=== PATIENT | male | born 1955 | race Two or more races ===

== ENCOUNTER 2024-04-17 10:45 | Inpatient (IN) | payer MEDICARE, MEDICAID ==
[~2024-04-17] VITALS: Ht 160 cm; Wt 103.9 kg
--- NOTE | 2024-04-17 11:05 | ED.PDOC ---
History of Present Illness HPI Comments 68-year-old male with PMHx DM, HTN presents with a chief complaint of wound infection s/p amputation surgery x 3 months ago. Patient has an open wound to the left 5th digit on his foot that is open and draining fluid. Patient had his 2nd digit on his left foot amputated x 3 months ago at [facility]. Patient was sent home with oral antibiotics for 10 days which he finished. Patient denies any pain to the foot. No other symptoms or modifying factors present at this time. Time Seen by MD: 10:54 Reviewed Notes: Nurses Notes, Medications, Allergies Information Source: Relative (Child) Mode of Arrival: Ambulatory Severity: Moderate Timing: Days Duration: Since onset Prehospital treatment: None Associated signs and symptoms No associated nausea or vomiting Past Medical History PAST MEDICAL HISTORY: DM, HTN Surgical History (Other): AMPUTATION OF 2ND DIGIT ON LEFT FOOT Family History Family History: Reviewed,noncontributory to illness Social History Smoker: Non-Smoker Alcohol: Denies ETOH Use Drugs: Denies Drug Use Lives In: Home Constitutional: denies: chills, diaphoresis, fatigue, fever, malaise, sweats, weakness, others EENTM: denies: blurred vision, double vision, ear bleeding, ear discharge, ear drainage, ear pain, ear ringing, eye pain, eye redness, hearing loss, mouth pain, mouth swelling, nasal discharge, nose bleeding, nose congestion, nose pain, photophobia, tearing, throat pain, throat swelling, voice changes, others Respiratory: denies: cough, hemoptysis, orthopnea, SOB at rest, shortness of breath, SOB with excertion, stridor, wheezing, others Cardiovascular: denies: chest pain, dizzy spells, diaphoresis, Dyspnea on exertion, edema, irregular heart beat, left arm pain, lightheadedness, palpita tions, PND, syncope, others Gastrointestinal: denies: abdomen distended, abdominal pain, blood streaked fan wels, constipated, diarrhea, dysphagia, difficulty swallowing, hematemesis, melena, nausea, poor appetite, poor fluid intake, rectal bleeding, rectal pain, vomiting, others Genitourinary: denies: burning, dysuria, flank pain, frequency, hematuria, incontinence, penile discharge, penile sore, pain, testicle pain, testicle swelling, urgency, others Neurological: denies: dizziness, fainting, headache, left sided numbness, left sided weakness, numbness, paresthesia, pre-existing deficit, right sided numbness, right sided weakness, seizure, speech problems, tingling, tremors, weakness, others Musculoskeletal: denies: back pain, gout, joint pain, joint swelling, muscle pain, muscle stiffness, neck pain, others Integumetry: reports: wounds (LEFT 5th DIGIT ON FOOT); denies: bruises, change in color, change in hair/nails, dryness, laceration, lesions, lumps, rash, others Allergic/Immunocompromised: denies: Difficulty Healing, Frequent Infections, Hives, Itching, others Hematologic/Lymphatic: denies: anemia, blood clots, easy bleeding, easy bruising, swollen glands, others Endocrine: denies: excessive hunger, excessive sweating, excessive thirst, excessive urination, flushing, intolerance to cold, intolerance to heat, unexp lained weight gain, unexplained weight loss, others Psychiatric: denies: anxiety, bipolar disorder, depression, hopeless, panic disorder, schizophrenia, sleepless, suicidal, others All Other Systems: Reviewed and Negative Physical Exam General Appearance: No Apparent Distress HEENT: Normal ENT Inspection, Pharynx Normal, TMs Normal Neck: Full Range of Motion, Non-Tender, Normal, Normal Inspection Respiratory: Chest Non-Tender, Lungs Clear, No Accessory Muscle Use, No Respiratory Distress, Normal Breath Sounds Cardiovascular: No Edema, No JVD, No Murmur, No Gallop, Normal Peripheral Pulses, Regular Rate/Rhythm Breast Exam: Deferred Gastrointestinal: No Organomegaly, Non Tender, No Pulsatile Mass, Normal Bowel Sounds, Soft Genitalia: Deferred Pelvic: Deferred Rectal: Deferred Extremities: No calf tenderness, Normal capillary refill, No pedal edema, Other (Left foot with previous amputation of the 2nd digit but also significant redness and what seems to be exposed destructive bone to the left 5th digit as well as purulent drainage) Musculoskeletal : Apperance: Normal Neurologic: Alert, appeals manager II-XII nml as Tested, No Motor Deficits, Normal Affect, Normal Mood, No Sensory Deficits Cerebellar Function: Normal Reflexes: Normal Skin: Dry, Normal Color, Warm Lymphatic: No Adenopathy Was a procedure done? Was a procedure done?: No Differential Dx Considerations may include: Osteomyelitis, cellulitis X-Ray, Labs, Meds, VS Vital Signs Date Time Temp Pulse Resp B/P (MAP) Pulse Ox O2 Delivery O2 Flow Rate FiO2 04/17/24 11:30 98.6 73 17 151/76 (101) 98 98.6 04/17/24 11:30 73 17 04/17/24 11:18 98.9 82 18 157/76 (103) 100 Lab Test 04/17/24 11:54 04/17/24 11:41 04/17/24 11:38 04/17/24 11:32 Range/Units POC Glucose 323 H 297 H 304 H 70-106 mg/dl Urine Color Light-yellow Yellow Urine Clarity Clear Clear Urine pH 5.5 5.0-9.0 Urine Specific [place] 1.018 1.001-1.035 Urine Protein 2+ H Negative Urine Ketones Negative Negative Urine Blood Trace H Negative /uL Urine Nitrite Negative Negative Urine Bilirubin Negative Negative Urine Urobilinogen Normal Negative mg/dL Urine Leukocyte Esterase Negative Negative /uL Urine RBC <1 0 - 3 /hpf Urine WBC 1 0 - 3 /hpf Urine Squamous Epithelial Cells None seen <5 /hpf Urine Bacteria None seen None Seen /hpf Urine Glucose 4+ H Normal mg/dL Test 04/17/24 11:14 Range/Units White Blood Count 9.5 4.4-10.8 10^3/uL Red Blood Count 5.95 H 4.5-5.90 10^6/uL Hemoglobin 17.4 13.5-17.5 g/dL Hematocrit 51.1 41.0-53.0 % Mean Corpuscular Volume 85.8 80.0-100.0 fL Mean Corpuscular Hemoglobin 29.3 28.0-32.0 pg Mean Corpuscular Hemoglobin Concent 34.1 32.0-36.0 g/dL Red Cell Distribution Width 13.5 11.8-14.3 % Platelet Count 236 140-450 10^3/uL Mean Platelet Volume 8.1 6.9-10.8 fL Neutrophils (%) (Auto) 64.5 37.0-80.0 % Lymphocytes (%) (Auto) 24.2 10.0-50.0 % Monocytes (%) (Auto) 6.4 0.0-12.0 % Eosinophils (%) (Auto) 4.2 0.0-7.0 % Basophils (%) (Auto) 0.7 0.0-2.0 % Neutrophils # (Auto) 6.1 1.6-8.6 10 ^3/uL Lymphocytes # (Auto) 2.3 0.4-5.4 10 ^3/uL Monocytes # (Auto) 0.6 0-1.3 10 ^3/uL Eosinophils # (Auto) 0.4 0-0.8 10 ^3/uL Basophils # (Auto) 0.1 0-0.2 10 ^3/uL Nucleated Red Blood Cells 0.1 % Erythrocyte Sedimentation Rate 12 0-20 mm/hr Sodium Level 138 136-145 mmol/L Potassium Level 4.4 3.5-5.1 mmol/L Chloride Level 102 98-107 mmol/L Carbon Dioxide Level 26 20-31 mmol/L Anion Gap 10 5-15 Blood Urea Nitrogen 24 H 9-23 mg/dL Creatinine 1.07 0.700-1.30 mg/dL Glomerular Filtration Rate Calc 75 >90 mL/min BUN/Creatinine Ratio 22.4 H 10.0-20.0 Serum Glucose 288 H 74-106 mg/dL Lactic Acid Level 1.8 0.4-2.0 mmol/L Calcium Level 10.4 8.7-10.4 mg/dL Current Medications Medications (Trade) Dose Ordered Sig/Debi Route Start Time Stop Time Status Last Admin Sodium Chloride 500 ml @ 500 mls/hr Q1H ONCE IV 04/17/24 11:00 04/17/24 11:59 DC 04/17/24 11:38 Vancomycin HCl 200 ml @ 200 mls/hr ONCE ONCE IV 04/17/24 11:00 04/17/24 11:59 DC 04/17/24 12:[address] Scan Impression: 1. 5th proximal and middle phalanx osteomyelitis. Soft tissue swelling compatible with cellulitis. The patient had an IV Hep-Lock established The patient was given a bolus of normal saline at 500 cc The patient's CBC and chemistry panel is within normal limits The lactic acid level is within normal limits The urine test is negative for any infection The patient was started on vancomycin for the infection A podiatry consult will be obtained. Images Reviewed?: Images reviewed and evaluated by me Time of 1ST Reevaluation: 11:24 Reevaluation 1ST: Unchanged Patient Education/Counseling: Diagnosis, Treatment, Prognosis Family Education/Counseling: Diagnosis, Treatment, Prognosis Departure 1 Departure Time of Disposition: 12:47 Impression: Primary Impression: Foot osteomyelitis, left Qualified Codes: M86.9 - Osteomyelitis, unspecified Disposition: ADMITTED INPATIENT Admit to: Med Surg Condition: Fair Critical Care Note Critical Care Time?: No Stability Stability form required: Yes Unstable for transfer: ED Physician Assesment (Clinical assesment) Heart Score Heart Score: Heart Score Response (Comments) Value History N/A 0 EKG N/A 0 Age N/A 0 Risk Factors N/A 0 Troponin N/A 0 Total 0 I personally scribed for KAYDEN LLAMAS MD ([email or web address]) on 04/17/24 at 11:05. El ectronically submitted by Pedro Astudillo ([email or web address]). I personally scribed for KAYDEN LLAMAS MD ([email or web address]) on 04/17/24 at 12:20. Electronically submitted by Pedro Astudillo ([email or web address]). KAYDEN LLAMAS MD Apr 17, 2024 11:05
[2024-04-17 11:34] LABS: Chloride 102 mmol/L (98-107); Potassium 4.4 mmol/L (3.5-5.1); Sodium 138 mmol/L (136-145)
[2024-04-17 11:35] LABS: Anion Gap 10 (5-15); Carbon Dioxide 26 mmol/L (20-31)
[2024-04-17 11:36] LABS: Basophils # (auto) 0.1 10 ^3/uL (0-0.2); Basophils % (auto) 0.7 % (0.0-2.0); Eosinophils # (auto) 0.4 10 ^3/uL (0-0.8); Eosinophils % (auto) 4.2 % (0.0-7.0); Hematocrit 51.1 % (41.0-53.0); Hemoglobin 17.4 g/dL (13.5-17.5); Lymphocytes # (auto) 2.3 10 ^3/uL (0.4-5.4); Lymphocytes % (auto) 24.2 % (10.0-50.0); Mean Corpuscular Hemoglobin 29.3 pg (28.0-32.0); Mean Corpuscular Hgb Conc. 34.1 g/dL (32.0-36.0); Mean Corpuscular Volume 85.8 fL (80.0-100.0); Monocytes # (auto) 0.6 10 ^3/uL (0-1.3); Monocytes % (auto) 6.4 % (0.0-12.0); Neutrophils # (auto) 6.1 10 ^3/uL (1.6-8.6); Neutrophils % (auto) 64.5 % (37.0-80.0); Nucleated Red Blood Cells % 0.1 %; Platelet Count (auto) 236 10^3/uL (140-450); Red Blood Cells 5.95 10^6/uL (4.5-5.90); Red Cell Distribution Width 13.5 % (11.8-14.3); White Blood Cell 9.5 10^3/uL (4.4-10.8)
[2024-04-17] MEDS: SODIUM CHLORIDE 0.9% 500 ML IV ONE (11:38)
[2024-04-17 11:40] LABS: BUN/Creatinine Ratio 22.4 (10.0-20.0)
[2024-04-17 11:41] LABS: Blood Urea Nitrogen 24 mg/dL (9-23); Calcium 10.4 mg/dL (8.7-10.4); Glucose 288 mg/dL (74-106)
[2024-04-17 11:50] LABS: Urine Bacteria None Seen /hpf (None Seen)
[2024-04-17 12:03] LABS: Urine Blood TRACE /uL (Negative); Urine Clarity Clear (Clear); Urine Color Light-Yellow (Yellow); Urine Protein, UAD 2+ (Negative); Urine Specific Gravity 1.018 (1.001-1.035); Urine Urobilinogen Normal (Negative); Urine WBC 1 /hpf (0 - 3); Urine pH 5.5 (5.0-9.0)
[2024-04-17] MEDS: VANCOMYCIN 1GM/250ML KIT 200 ML IV ONE (12:05)
--- NOTE | 2024-04-17 12:17 | DVH ---
CLINICAL INDICATION: 68 years old, Male; infection. TECHNIQUE: Noncontrast CT of the left foot was performed. Sagittal and coronal reformatted images are provided. COMPARISON: None CT Dose: CTDI volume is 7.75 mGy. Dose-length product is 209.0 mGy*cm FINDINGS: There is cortical destruction in the 5th proximal and middle phalanx. Status post amputation of the 2 nd toe phalanges. Joint spaces are otherwise maintained. Diffuse soft tissue swelling. Vascular calc ifications noted. IMPRESSION: 1. 5th proximal and middle phalanx osteomyelitis. Soft tissue swelling compatible with cellulitis. All CT scans at this medical facility are performed using dose modulation techniques as appropriate t o a performed exam including the following: Automated exposure control was utilized; adjustment of th e MA and/or KV according to patient size; and use of iterative reconstruction technique.
[2024-04-17 12:24] LABS: Erythrocyte Sedimentation Rate 12 mm/hr (0-20)
[2024-04-17] MEDS ORDERED: VANCOMYCIN PER PHARMACY 0 MG IV SCH (13:30)
[2024-04-17] MEDS ORDERED: ONDANSETRON HCL 4 MG/2 ML VIAL IV PRN (13:30)
[2024-04-17] MEDS ORDERED: DOCUSATE SOD 100 MG CAP PO PRN (13:30)
[2024-04-17] MEDS ORDERED: MORPHINE SULFATE INJ 2 MG/ml SYRG IV PRN (13:30)
[2024-04-17] MEDS ORDERED: ACETAMINOPHEN 325 MG TAB PO PRN (13:30)
[2024-04-17] MEDS ORDERED: DEXTROSE (50%) 50ML SYRG IV PRN (13:30)
[2024-04-17] MEDS: SODIUM CHLORIDE 0.9% 1,000 ML IV SCH (14:18)
[2024-04-17] MEDS: PIPERACILLIN-TAZOB 3.375GM 100 ML IV SCH (14:26)
--- NOTE | 2024-04-17 15:19 | DVHHP2 ---
History of Present Illness Reason for Visit: infected left foot History of Present Illness Jaiden Pope is a 68YO M with pmHx of DM, HTN, HLD, land eft 2nd toe amputation who presents to the ED for infected left toe. Upon examination patient reports he was hospitalized recently for the amputation and completed his course of antibiotics. He states he is here now because he thinks his left foot is infected and due to the foul odor. Patient reports he is compliant with his medications. Patient states he uses a cane for mobility. Patient denies fever, chills, pain, N/V/D, shortness of breath, chest pain, and abdominal pain. Cardiovascular: HTN, hyperipidemia Endocrine: Diabetes Past Surgical History Left toe amputation Family History: None Smoke: No ALCOHOL: none Lives: with Family Domestic Violence: Neg Review of Systems Constitutional: No: Fever, Chills, Sweats, Weakness, Malaise, Other Eyes: No: Pain, Vision change, Conjunctivae inflammation, Eyelid inflammation, Other, Redness ENT: No: Ear pain, Ear discharge, Nose pain, Nose discharge, Nose congestion, Mouth pain, Mouth swelling, Throat pain, Throat swelling, Other Respiratory: No: Cough, Dry, Shortness of breath, SOB with excertion, Wheezing, Hemoptysis, Pleuritic Pain, Sputum, Wheezing, Other Cardiovascular: No: Chest Pain, Palpitations, Orthopnea, Paroxysmal Noc. Dyspnea, Edema, Lt Headedness, Other Gastrointestinal: No: Nausea, Vomiting, Abdominal Pain, Diarrhea, Constipation, Melena, Hematochezia, Other Genitourinary: No Dysuria, No Frequency, No Incontinence, No Hematuria, No Retention, No Other Musculoskeletal: No: other, neck pain, shoulder pain, arm pain, back pain, hand pain, leg pain, foot pain Skin: Other (erythematic edematous) Neurological: No: Weakness, Numbness, Incoordination, Change in speech, Confusion, Seizures, Other Allergies: Coded Allergies: No Known Drug Allergy (Verified Allergy, Unknown, 04/17/24) Medications Current Medications Medications Dose Ordered Sig/Debi Route Start Time Stop Time Status Last Admin Dose Admin Vancomycin HCl 0 ml @ 0 mls/hr UD IV 04/17/24 13:30 Piperacillin Sod/ Tazobactam Sod 100 ml @ 25 mls/hr Q8HR IV 04/17/24 14:00 04/17/24 14:26 25 MLS/HR Diagnostic Test (Pha) 1 strip IQ4HR 04/17/24 16:00 Insulin Human Regular IQ4HR SC 04/17/24 16:00 Dextrose 50 ml UD PRN IV 04/17/24 13:30 Sodium Chloride 1,000 ml @ 60 mls/hr [id number] IV 04/17/24 13:30 04/17/24 14:18 60 MLS/HR Acetaminophen/ Hydrocodone Bitart 1 tab Q4HP PRN PO 04/17/24 13:30 Ondansetron HCl 4 mg Q4HP PRN IV 04/17/24 13:30 Docusate Sodium 100 mg BIDPRN PRN PO 04/17/24 13:30 Zinc Sulfate 220 mg DAILY PO 04/18/24 10:00 Ascorbic Acid 500 mg BID PO 04/17/24 22:00 Multivitamins 1 tab DAILY PO 04/18/24 10:00 Acetaminophen 650 mg Q6HP PRN PO 04/17/24 13:30 Morphine Sulfate 2 mg Q4HPRN PRN IV 04/17/24 13:30 Vancomycin HCl 150 ml @ 150 mls/hr Q12H IV 04/18/24 00:00 Exam Vital Signs Vital Signs Date Time Temp Pulse Resp B/P (MAP) Pulse Ox O2 Delivery O2 Flow Rate FiO2 04/17/24 14:06 69 16 125/74 (91) 94 04/17/24 11:30 98.6 98.6 General Appearance: Alert, Oriented X3, Cooperative, No acute distress HEENT: Atraumatic, PERRLA, EOMI, Mucous membr. moist/pink Respiratory: Clear to auscultation, Normal air movement Cardiovascular: Regular rate, Normal S1, Normal S2, No murmurs Abdominal: Normal bowel sounds, Soft, No tenderness, No hepatospenomegaly, No masses Extremities: No cyanosis Neuro: Normal gait, Normal speech, Strength at 5/5 X4 ext, Normal tone Psych/Mental Status: Mental status NL, Mood NL Labs/Xrays Labs Test 04/17/24 11:54 04/17/24 11:32 04/17/24 11:14 Range/Units POC Glucose 323 H 70-106 mg/dl Urine Color Light-yellow Yellow Urine Clarity Clear Clear Urine pH 5.5 5.0-9.0 Urine Specific [place] 1.018 1.001-1.035 Urine Protein 2+ H Negative Urine Ketones Negative Negative Urine Blood Trace H Negative /uL Urine Nitrite Negative Negative Urine Bilirubin Negative Negative Urine Urobilinogen Normal Negative mg/dL Urine Leukocyte Esterase Negative Negative /uL Urine RBC <1 0 - 3 /hpf Urine WBC 1 0 - 3 /hpf Urine Squamous Epithelial Cells None seen <5 /hpf Urine Bacteria None seen None Seen /hpf Urine Glucose 4+ H Normal mg/dL White Blood Count 9.5 4.4-10.8 10^3/uL Red Blood Count 5.95 H 4.5-5.90 10^6/uL Hemoglobin 17.4 13.5-17.5 g/dL Hematocrit 51.1 41.0-53.0 % Mean Corpuscular Volume 85.8 80.0-100.0 fL Mean Corpuscular Hemoglobin 29.3 28.0-32.0 pg Mean Corpuscular Hemoglobin Concent 34.1 32.0-36.0 g/dL Red Cell Distribution Width 13.5 11.8-14.3 % Platelet Count 236 140-450 10^3/uL Mean Platelet Volume 8.1 6.9-10.8 fL Neutrophils (%) (Auto) 64.5 37.0-80.0 % Lymphocytes (%) (Auto) 24.2 10.0-50.0 % Monocytes (%) (Auto) 6.4 0.0-12.0 % Eosinophils (%) (Auto) 4.2 0.0-7.0 % Basophils (%) (Auto) 0.7 0.0-2.0 % Neutrophils # (Auto) 6.1 1.6-8.6 10 ^3/uL Lymphocytes # (Auto) 2.3 0.4-5.4 10 ^3/uL Monocytes # (Auto) 0.6 0-1.3 10 ^3/uL Eosinophils # (Auto) 0.4 0-0.8 10 ^3/uL Basophils # (Auto) 0.1 0-0.2 10 ^3/uL Nucleated Red Blood Cells 0.1 % Erythrocyte Sedimentation Rate 12 0-20 mm/hr Sodium Level 138 136-145 mmol/L Potassium Level 4.4 3.5-5.1 mmol/L Chloride Level 102 98-107 mmol/L Carbon Dioxide Level 26 20-31 mmol/L Anion Gap 10 5-15 Blood Urea Nitrogen 24 H 9-23 mg/dL Creatinine 1.07 0.700-1.30 mg/dL Glomerular Filtration Rate Calc 75 >90 mL/min BUN/Creatinine Ratio 22.4 H 10.0-20.0 Serum Glucose 288 H 74-106 mg/dL Hemoglobin A1c 8.5 H <5.7 % A1C Lactic Acid Level 1.8 0.4-2.0 mmol/L Calcium Level 10.4 8.7-10.4 mg/dL CLINICAL INDICATION: rule out osteomyelitis left 5th toe FINDINGS/IMPRESSION: Ablation of the left 2nd toe.. Osteoporotic and severe bone loss to the proximal phalanx of the left 5th toe and distal phalanx of the left 5th toe consistent with osteomyelitis. Other toes may be involved suggest MRI for further evaluation. The visualized joint space is well maintained. The alignment is anatomical. There is no radiopaque foreign body. BILATERAL Lower Extremity Arterial Duplex Clinical History: rule out vascular compromise. Gangrene left toe Finding: RIGHT: Peak systolic velocities are as follows: SAFETY ENGINEER PRESSURE VESSELS 116 cm/s biphasic waveform Deep femoral 71 cm/s biphasic waveform SFA proximal 71 cm/s biphasic waveform SFA mid-portion 130 cm/s biphasic waveform SFA distal 99 cm/s biphasic waveform Popliteal 38 cm/s biphasic waveform Posterior tibial 55 cm/s monophasic waveform Dorsalis pedis 53 cm/s monophasic waveform The waveforms are monophasic waveform in the posterior tibial and dorsalis pedis arteries. Biphasic waveform throughout the remainder of the arteries. LEFT: Peak systolic velocities are as follows: SAFETY ENGINEER PRESSURE VESSELS 128 cm/s biphasic waveform Deep femoral 77 cm/s biphasic waveform SFA proximal 131 cm/s biphasic waveform SFA mid-portion 91 cm/s biphasic waveform SFA distal 128 cm/s biphasic waveform Popliteal 118 cm/s triphasic waveform Posterior tibial 151 cm/s monophasic waveform Dorsalis pedis 8 cm/s monophasic waveform The waveforms are biphasic and triphasic waveform throughout the left lower extremity except in the left posterior tibial artery and dorsalis pedis in which they are monophasic. REFERENCE VALUES, [facility] ([facility]) vascular Imaging Lab Criteria: Peak systolic velocity ranges (in cm/sec) are as follows: <150 cm/s - <20 % stenosis 150-200 cm/s - 20-49% stenosis 200-300 cm/s - 50-75% stenosis >300 cm/s -> 75% stenosis IMPRESSION: 1. Biphasic waveform throughout the right lower extremity except in the posterior tibial and dorsalis pedis in which they are monophasic. 2. biphasic 3. on triphasic waveform throughout the left lower 4. extremity. 5. Monophasic 6. waveform in the left posterior tibial 7. artery and dorsalis pedis. 8. Low flow 9. in the left dorsalis 10. pedis all 8 centimeters/second. PROCEDURE(s): LFTCT - CT L FOOT WO CONTRAST REASON: infection CLINICAL INDICATION: 68 years old, Male; infection. FINDINGS: There is cortical destruction in the 5th proximal and middle phalanx. Status post amputation of the 2nd toe phalanges. Joint spaces are otherwise maintained. Diffuse soft tissue swelling. Vascular calcifications noted. IMPRESSION: 1. 5th proximal and middle phalanx osteomyelitis. Soft tissue swelling compatible with cellulitis. Assessment/Plan Assessment/Plan Assessment: Osteomyelitis of left foot Hx of left 2nd toe amputation DM Plan: Admit to med surg Podiatry consult IVf IV Abx Diet as tolerated ISS and accuchecks Pain management Monitor labs AM labs Home medications reconciled Discussed plan of care with patient and nurse Plan discussed with: Patient My Orders Orders - ASHA HANSON AIRPORT ATTENDANT Procedure Category Date Status Time *Podiatry Consult CONS 04/17/24 Transmitted Briceon(Dvmg) 12:46 Vancomycin Per PHA 04/17/24 In Process Pharmacy 13:30 Piperacillin-Tazob PHA 04/17/24 In Process 3.375gm (Zosyn 3.375g 14:00 Glucose Blood PHA 04/17/24 In Process (Accu-Chek Comfort 16:00 Insulin R (Human) PHA 04/17/24 In Process (Insulin R) 16:00 Dextrose 50% Syringe PHA 04/17/24 In Process 13:30 Admit ADMIT 04/17/24 Transmitted 13:18 Code Status CODE 04/17/24 Transmitted 13:18 Sodium Chloride 0.9% PHA 04/17/24 In Process 13:30 Hydrocodone-Acet PHA 04/17/24 In Process 5/325mg Tab ([place] 13:30 Ondansetron Hcl PHA 04/17/24 In Process (Zofran) 13:30 Docusate Sodium PHA 04/17/24 In Process Capsule (Colace 13:30 Zinc Sulfate PHA 04/18/24 In Process 10:00 Ascorbic Acid Tablet PHA 04/17/24 In Process (Vitamin C Tablet) 22:00 Multiple Vitamin PHA 04/18/24 In Process Tablet (Mvi Tab) 10:00 Complete Blood Count LAB 04/18/24 Verified 04:00 Comprehensive LAB 04/18/24 Verified Metabolic Panel 04:00 Cardiac DIET 04/17/24 Transmitted Diet-2gna,Lofat,Lochol Lunch Acetaminophen Tablet PHA 04/17/24 In Process (Tylenol Tablet) 13:30 Morphine Sulfate PHA 04/17/24 In Process Injection 13:30 Vancomycin,Trough LAB 04/18/24 Verified 23:00 Vancomycin Per MEJIA 04/18/24 In Process Pharmacy Protoc 23:00 Vancomycin PHA 04/18/24 In Process 750mg/150ml 00:00 Problem List: (1) Foot osteomyelitis, left (2) HTN (hypertension) (3) HLD (hyperlipidemia) (4) Diabetes Date of Service: Apr 17, 2024 Billing Provider: ASHA HANSON Common Visit Codes: [id number] INP/OBS CARE (MOD) ASHA HANSON Apr 17, 2024 15:19
[2024-04-17] MEDS: ACCU-CHEK COMFORT CURVE STRIP VI SCH (16:09)
[2024-04-17] MEDS: InsuLIN REG 1unit/0.01ml Soln (100units/ml) SC SCH (16:17)
--- NOTE | 2024-04-17 17:54 | DVH ---
CLINICAL INDICATION: rule out osteomyelitis left 5th toe TECHNIQUE: 3 radiographic views of the left foot were obtained. Comparison: None FINDINGS/IMPRESSION: Ablation of the left 2nd toe.. Osteoporotic and severe bone loss to the proximal phalanx of the left 5th toe and distal phalanx of t he left 5th toe consistent with osteomyelitis. Other toes may be involved suggest MRI for further evaluation. The visualized joint space is well maintained. The alignment is anatomical. There is no radiopaque foreign body.
--- NOTE | 2024-04-17 18:31 | DVH ---
BILATERAL Lower Extremity Arterial Duplex Date: 04/17/2024 05:32 PM Clinical History: rule out vascular compromise. Gangrene left toe Comparison: None Technique: Duplex Doppler evaluation including color Doppler and spectral/pulsed waveform analysis of the lower extremity arteries was performed. Finding: RIGHT: Peak systolic velocities are as follows: ALARM SIGNAL OPERATOR 116 cm/s biphasic waveform Deep femoral 71 cm/s biphasic waveform SFA proximal 71 cm/s biphasic waveform SFA mid-portion 130 cm/s biphasic waveform SFA distal 99 cm/s biphasic waveform Popliteal 38 cm/s biphasic waveform Posterior tibial 55 cm/s monophasic waveform Dorsalis pedis 53 cm/s monophasic waveform The waveforms are monophasic waveform in the posterior tibial and dorsalis pedis arteries. Biphasic w aveform throughout the remainder of the arteries. LEFT: Peak systolic velocities are as follows: ALARM SIGNAL OPERATOR 128 cm/s biphasic waveform Deep femoral 77 cm/s biphasic waveform SFA proximal 131 cm/s biphasic waveform SFA mid-portion 91 cm/s biphasic waveform SFA distal 128 cm/s biphasic waveform Popliteal 118 cm/s triphasic waveform Posterior tibial 151 cm/s monophasic waveform Dorsalis pedis 8 cm/s monophasic waveform The waveforms are biphasic and triphasic waveform throughout the left lower extremity except in the l eft posterior tibial artery and dorsalis pedis in which they are monophasic. REFERENCE VALUES, [facility] ([facility]) vascular Imaging Lab Criteria: Peak systolic velocity ranges (in cm/sec) are as follows: <150 cm/s - <20 % stenosis 150-200 cm/s - 20-49% stenosis 200-300 cm/s - 50-75% stenosis >300 cm/s -> 75% stenosis IMPRESSION: 1. Biphasic waveform throughout the right lower extremity except in the posterior tibial and dorsalis pedis in which they are monophasic. 2. biphasic 3. on triphasic waveform throughout the left lower 4. extremity. 5. Monophasic 6. waveform in the left posterior tibial 7. artery and dorsalis pedis. 8. Low flow 9. in the left dorsalis 10. pedis all 8 centimeters/second.
[2024-04-17] MEDS: ASCORBIC ACID 500 MG TAB PO SCH (21:55)
[2024-04-18] VITALS (8 sets, daily range): BP systolic 118–160; BP diastolic 46–91; PULSE 60–63; RESP 17–20; TEMP 97.7–98.9; O2SAT 89–96
[2024-04-18] MEDS: VANCOMYCIN 750mg/150ml 150 ML IV SCH (01:13)
[2024-04-18 06:10] LABS: Basophils # (auto) 0 10 ^3/uL (0-0.2); Basophils % (auto) 0.6 % (0.0-2.0); Eosinophils # (auto) 0.5 10 ^3/uL (0-0.8); Eosinophils % (auto) 6.1 % (0.0-7.0); Hematocrit 42.1 % (41.0-53.0); Hemoglobin 14.3 g/dL (13.5-17.5); Lymphocytes # (auto) 2.1 10 ^3/uL (0.4-5.4); Lymphocytes % (auto) 23.3 % (10.0-50.0); Mean Corpuscular Hemoglobin 29.2 pg (28.0-32.0); Mean Corpuscular Hgb Conc. 33.9 g/dL (32.0-36.0); Mean Corpuscular Volume 86.2 fL (80.0-100.0); Monocytes # (auto) 0.7 10 ^3/uL (0-1.3); Monocytes % (auto) 7.9 % (0.0-12.0); Neutrophils # (auto) 5.5 10 ^3/uL (1.6-8.6); Neutrophils % (auto) 62.1 % (37.0-80.0); Platelet Count (auto) 218 10^3/uL (140-450); Red Blood Cells 4.88 10^6/uL (4.5-5.90); Red Cell Distribution Width 13.2 % (11.8-14.3); White Blood Cell 8.8 10^3/uL (4.4-10.8)
[2024-04-18 06:26] LABS: Alanine Aminotransferase 16 U/L (7-40); Alkaline Phosphatase 96 U/L (46-116); Anion Gap 9 (5-15); Blood Urea Nitrogen 20 mg/dL (9-23); Calcium 9.2 mg/dL (8.7-10.4); Carbon Dioxide 26 mmol/L (20-31); Potassium 3.8 mmol/L (3.5-5.1); Sodium 142 mmol/L (136-145)
[2024-04-18 06:27] LABS: Albumin 3.7 g/dL (3.2-4.8); Bilirubin, Total 0.5 mg/dL (0.2-1.0); Total Protein 6.3 g/dL (5.7-8.2)
[2024-04-18 06:50] LABS: Aspartate Aminotransferase 11 U/L (13-40); Chloride 107 mmol/L (98-107); Glucose 136 mg/dL (74-106)
--- NOTE | 2024-04-18 07:49 | DVHINCON2 ---
Date of service: Apr 18, [address] Miller MD Reason for Consultation Osteomyelitis 5th left toe. History of Present Illness This is a 68-year-old M with past medical Hx of DM, HTN, HLD, and left 2nd toe amputation. The patient was seen at bed side resting comfortably. Upon e xamination patient reports he was hospitalized recently for the amputation of the 2nd left toe approximately 3 weeks ago at [facility]. The patient completed his course of antibiotics. He states he is here now because he thinks his left foot is infected and due to the foul odor. Patient Patient denies fever, chills, pain, N/V/D, shortness of breath, chest pain, and abdominal pain. I was consulted to render an opinion from surgical view point. Past Medical History DMII HTN Hyperlipidemia. Past Surgical History Amputation of the 2nd left toe. Family History: Patient reports no known family medical history. Family History Reviewed and is non-contributory to management of this case. Social History denies tobacco use denies alcohol use denies illicit drug use lives at home with family. Allergies: Coded Allergies: No Known Drug Allergy (Verified Allergy, Unknown, 04/17/24) Home Meds Unable to Obtain Active Prescriptions or Reported Meds Current Medications Current Medications Medications (Trade) Dose Ordered Sig/Debi Route PRN Reason Start Time Stop Time Status Last Admin Vancomycin HCl 0 ml @ 0 mls/hr UD IV 04/17/24 13:30 Piperacillin Sod/ Tazobactam Sod 100 ml @ 25 mls/hr Q8HR IV 04/17/24 14:00 04/18/24 05:30 Diagnostic Test (Pha) (Accu-Chek Comfort Curve T) 1 strip IQ4HR 04/17/24 16:00 04/18/24 04:38 Insulin Human Regular (InsuLIN R) IQ4HR SC 04/17/24 16:00 04/18/24 04:38 Dextrose 50 ml UD PRN IV Blood Sugar LESS THAN 60 04/17/24 13:30 Sodium Chloride 1,000 ml @ 60 mls/hr [id number] IV 04/17/24 13:30 04/17/24 21:55 Acetaminophen/ Hydrocodone Bitart ([place] 5/325MG Tab) 1 tab Q4HP PRN PO MODERATE PAIN (4-6 PAIN SCALE) 04/17/24 13:30 Ondansetron HCl (Zofran) 4 mg Q4HP PRN IV NAUSEA / VOMITING 04/17/24 13:30 Docusate Sodium (Colace Capsule) 100 mg BIDPRN PRN PO FOR CONSTIPATION 04/17/24 13:30 Zinc Sulfate 220 mg DAILY PO 04/18/24 10:00 Ascorbic Acid (Vitamin C Tablet) 500 mg BID PO 04/17/24 22:00 04/17/24 21:55 Multivitamins (Mvi Tab) 1 tab DAILY PO 04/18/24 10:00 Acetaminophen (Tylenol Tablet) 650 mg Q6HP PRN PO PAIN SCALE 1-3 OR TEMP>100.4 04/17/24 13:30 Morphine Sulfate 2 mg Q4HPRN PRN IV SEVERE PAIN (7-10 PAIN SCALE) 04/17/24 13:30 Vancomycin HCl 150 ml @ 150 mls/hr Q12H IV 04/18/24 00:00 04/18/24 01:13 Review of Systems Constitutional: No: Fever, Chills, Sweats, Weakness, Malaise, Other Eyes: No: Pain, Vision change, Conjunctivae inflammation, Eyelid inflammation, Other, Redness ENT: No: Ear pain, Ear discharge, Nose pain, Nose discharge, Nose congestion, Mouth pain, Mouth swelling, Throat pain, Throat swelling, Other Respiratory: No: Cough, Dry, Shortness of breath, SOB with excertion, Wheezing, Hemoptysis, Pleuritic Pain, Sputum, Wheezing, Other Cardiovascular: No: Chest Pain, Palpitations, Orthopnea, Paroxysmal Noc. Dyspnea, Edema, Lt Headedness, Other Gastrointestinal: No: Nausea, Vomiting, Abdominal Pain, Diarrhea, Constipation, Melena, Hematochezia, Other Genitourinary: No Dysuria, No Frequency, No Incontinence, No Hematuria, No Retention, No Other Musculoskeletal: No: other, neck pain, shoulder pain, arm pain, back pain, hand pain, foot pain (5th left toe). Skin: Other (erythematic edematous) Neurological: No: Weakness, Numbness, Incoordination, Change in speech, Confusion, Seizures, Other Vital Signs Vital Signs Date Time Temp Pulse Resp B/P (MAP) Pulse Ox O2 Delivery O2 Flow Rate FiO2 04/18/24 05:00 98.2 62 17 129/91 (104) 91 98.2 11/28/24 00:50 Room Air* 0 21 Physical Exam General Appearance: Alert, Oriented X3, Cooperative, No acute distress HEENT: Atraumatic, PERRLA, EOMI, Mucous membr. moist/pink Respiratory: Clear to auscultation, Normal air movement Cardiovascular: Regular rate, Normal S1, Normal S2, No murmurs Abdominal: Normal bowel sounds, Soft, No tenderness, No hepatospenomegaly, No masses Extremities: No cyanosis, DP/PT +1/4 bilaterally, CFT 3 seconds bilaterally. Open wound with foul odor 5th left toe with significant necrosis noted. Exposed bone noted to the dorsal aspect of the 5th left toe. Evidence of intact sutures noted to the 2nd left toe due to previous amputation. Neuro: Normal gait, Normal speech, Strength at 5/5 X4 ext, Normal tone Psych/Mental Status: Mental status NL, Mood NL X-rays: Reviewed: osteomyelitis is noted to the proximal and distal phalanx 5th left toe. CT left foot: Reviewed: Positive for osteomyelitis 5th left toe. Arterial Dupplex scan: Reviewed: Positive for vascular compromise LLE. Monophasic wave to the posterior tibial artery LLE. Labs/Diagnostic Data Labs Test 04/18/24 05:15 04/18/24 04:34 04/17/24 11:32 04/17/24 11:14 Range/Units White Blood Count 8.8 4.4-10.8 10^3/uL Red Blood Count 4.88 4.5-5.90 10^6/uL Hemoglobin 14.3 # 13.5-17.5 g/dL Hematocrit 42.1 # 41.0-53.0 % Mean Corpuscular Volume 86.2 80.0-100.0 fL Mean Corpuscular Hemoglobin 29.2 28.0-32.0 pg Mean Corpuscular Hemoglobin Concent 33.9 32.0-36.0 g/dL Red Cell Distribution Width 13.2 11.8-14.3 % Platelet Count 218 140-450 10^3/uL Mean Platelet Volume 7.8 6.9-10.8 fL Neutrophils (%) (Auto) 62.1 37.0-80.0 % Lymphocytes (%) (Auto) 23.3 10.0-50.0 % Monocytes (%) (Auto) 7.9 0.0-12.0 % Eosinophils (%) (Auto) 6.1 0.0-7.0 % Basophils (%) (Auto) 0.6 0.0-2.0 % Neutrophils # (Auto) 5.5 1.6-8.6 10 ^3/uL Lymphocytes # (Auto) 2.1 0.4-5.4 10 ^3/uL Monocytes # (Auto) 0.7 0-1.3 10 ^3/uL Eosinophils # (Auto) 0.5 0-0.8 10 ^3/uL Basophils # (Auto) 0 0-0.2 10 ^3/uL Nucleated Red Blood Cells 0.0 % Sodium Level 142 136-145 mmol/L Potassium Level 3.8 3.5-5.1 mmol/L Chloride Level 107 98-107 mmol/L Carbon Dioxide Level 26 20-31 mmol/L Anion Gap 9 5-15 Blood Urea Nitrogen 20 9-23 mg/dL Creatinine 1.05 0.700-1.30 mg/dL Glomerular Filtration Rate Calc 76 >90 mL/min BUN/Creatinine Ratio 19.0 10.0-20.0 Serum Glucose 136 #H 74-106 mg/dL Calcium Level 9.2 8.7-10.4 mg/dL Total Bilirubin 0.5 0.2-1.0 mg/dL Aspartate Amino Transferase (AST) 11 L 13-40 U/L Alanine Aminotransferase (ALT) 16 7-40 U/L Alkaline Phosphatase 96 46-116 U/L Total Protein 6.3 5.7-8.2 g/dL Albumin 3.7 3.2-4.8 g/dL POC Glucose 165 H 70-106 mg/dl Urine Color Light-yellow Yellow Urine Clarity Clear Clear Urine pH 5.5 5.0-9.0 Urine Specific [place] 1.018 1.001-1.035 Urine Protein 2+ H Negative Urine Ketones Negative Negative Urine Blood Trace H Negative /uL Urine Nitrite Negative Negative Urine Bilirubin Negative Negative Urine Urobilinogen Normal Negative mg/dL Urine Leukocyte Esterase Negative Negative /uL Urine RBC <1 0 - 3 /hpf Urine WBC 1 0 - 3 /hpf Urine Squamous Epithelial Cells None seen <5 /hpf Urine Bacteria None seen None Seen /hpf Urine Glucose 4+ H Normal mg/dL Erythrocyte Sedimentation Rate 12 0-20 mm/hr Hemoglobin A1c 8.5 H <5.7 % A1C Lactic Acid Level 1.8 0.4-2.0 mmol/L Assessment Primary Diagnosis: Osteomyelitis 5th left toe. S/P amputation 2nd left toe with intact sutures. Secondary Diagnosis: DM II HTN Hyperlipidemia. Plan/Recommendation -continue with IV antibiotics as prescribed pending C&S results. -PICC line is pending for shelter IV therapy. -Recommend angiogram/plasty LLE. Cardiology consult is pending. -Discussed treatment options with the patient ranging from conservative treatment to surgical intervention. Pros and cons, risks, and benefits were fully discussed. Surgery was opted consisting of amputation of the 5th left toe at [facility]J with possible metatarsal head resection as deem necessary. We will await surgical intervention pending vascular optimization. -All questions and concerns were answered to the patient';s satisfaction. (Nurse was in room translating in [place]). Thank you for your consultation. Plan discussed with: Patient MORGANWEROCIPRIANO DPM Apr 18, 2024 07:49
[2024-04-18] MEDS: MULTIPLE VITAMIN TAB PO SCH (09:11)
[2024-04-18] MEDS: ZINC SULFATE 220mg CAP or TAB PO SCH (09:11)
[2024-04-18] MEDS: VALSARTAN 80 MG TAB PO SCH (10:00)
[2024-04-18 10:24] LABS: INR 1.02 (0.9-1.15); Partial Thromboplastin Time 25.1 SEC (24.5-34.5); Prothrombin Time 10.8 sec (9.3-11.8)
[2024-04-18] MEDS: amLODIPine BESYLATE 5 MG TAB PO SCH (11:10)
[2024-04-18] MEDS: ASPirin 81 mg TAB PO SCH (11:12)
[2024-04-18] MEDS: LIDOCAINE 1% (LOCAL ANESTH.) PF 5ml SDV ID ONE (14:10)
[2024-04-18] MEDS: INSULIN LISPRO (HUMAN) 100 UNITS/ML ML SC SCH (14:15)
--- NOTE | 2024-04-18 14:22 | DVHPNRES ---
Progress Note Date Seen: Apr 18, 2024 Resident Creating Document: VESTA COLON RESIDENT Medical Necessity Reason Pt with a Central, PICC or Fol: No Subjective Review of Systems Majo BERMUDEZ a 68-year-old [place]-speaking male with a PMH of type 2 DM, HTN, HLD, 2nd left toe amputation presented to the ED for the evaluation chronic left 5th toe wound. Patient reported, he developed left foot 2nd and 4th toe ulcers 4 months back, operated 2nd toe at that time and on antibiotic for 6-8 weeks but, did not operated on 5th toe. For past 1 month the wound is getting bigger, foul-smelling, mild pain which prompted him to visit ED. on my assessment patient denies fever, nausea, vomiting, chest pain, diaphoresis, shortness of breath, and other associated symptoms PMH: Type 2 DM, HTN, HLD, osteomyelitis of left foot PSH: 2nd left toe amputation 3 months back Family history: Reviewed, noncontributory Social history: Lives with family. Denies smoking, alcohol and other drug abuse Allergies: No known allergies Home medications: Amlodipine 10 mg, valsartan 320 mg, insulin 50 units, metformin Patient seen and examined at the bedside. Patient reported improvement in pain since admission. Left lower extremity food CT and x-ray showed 5th proximal and middle phalanx osteomyelitis and Soft tissue swelling compatible with cellulitis. Ordered wound cultures. Currently on vancomycin and Zosyn. Podiatric dietitian consultant evaluated the patient, advised amputation of the 5th left toe at MPJ with possible metatarsal head resection as deem necessary and recommend angiogram/plasty LLE. Cardiology consult is pending. Objective vital signs Vital Sign Date Time Temp Pulse Resp B/P (MAP) Pulse Ox O2 Delivery O2 Flow Rate FiO2 04/18/24 12:38 97.7 61 18 160/70 (100) 89 97.7 04/18/24 00:50 Room Air* 0 21 Total Intake and Output 04/17/24 04/17/24 04/18/24 15:00 23:00 07:00 Intake Total 420 ml 550 ml Output Total 350 ml Balance 420 ml 200 ml medications Current Medications Medications Dose Ordered Sig/Debi Route Start Time Stop Time Status Last Admin Dose Admin Vancomycin HCl 0 ml @ 0 mls/hr UD IV 04/17/24 13:30 Piperacillin Sod/ Tazobactam Sod 100 ml @ 25 mls/hr Q8HR IV 04/17/24 14:00 04/18/24 14:04 25 MLS/HR Diagnostic Test (Pha) 1 strip IQ4HR 04/17/24 16:00 04/18/24 12:00 1 STRIP Insulin Human Regular IQ4HR SC 04/17/24 16:00 04/18/24 12:00 3 UNITS Dextrose 50 ml UD PRN IV 04/17/24 13:30 Sodium Chloride 1,000 ml @ 60 mls/hr [id number] IV 04/17/24 13:30 04/17/24 21:55 60 MLS/HR Acetaminophen/ Hydrocodone Bitart 1 tab Q4HP PRN PO 04/17/24 13:30 Ondansetron HCl 4 mg Q4HP PRN IV 04/17/24 13:30 Docusate Sodium 100 mg BIDPRN PRN PO 04/17/24 13:30 Zinc Sulfate 220 mg DAILY PO 04/18/24 10:00 04/18/24 09:11 220 MG Ascorbic Acid 500 mg BID PO 04/17/24 22:00 04/18/24 09:10 500 MG Multivitamins 1 tab DAILY PO 04/18/24 10:00 04/18/24 09:11 1 TAB Acetaminophen 650 mg Q6HP PRN PO 04/17/24 13:30 Morphine Sulfate 2 mg Q4HPRN PRN IV 04/17/24 13:30 Vancomycin HCl 150 ml @ 150 mls/hr Q12H IV 04/18/24 00:00 04/18/24 12:37 150 MLS/HR Aspirin 81 mg DAILY PO 04/18/24 10:00 04/18/24 11:12 81 MG Atorvastatin Calcium 40 mg HS PO 04/18/24 22:00 Amlodipine Besylate 10 mg DAILY PO 04/18/24 10:00 04/18/24 11:10 10 MG Valsartan 320 mg DAILY PO 04/18/24 10:00 Insulin Glargine 30 units QAM SC 04/19/24 07:00 UNV Insulin Human Lispro 7 units TID SC 04/18/24 14:15 UNV Examination Pt is lying on bed General Appearance: Alert, Oriented X3, Cooperative, Not in acute distress HEENT: Atraumatic, Mucous membranes moist/pink Respiratory: Clear to auscultation, Normal air movement, No added sounds Cardiovascular: Regular rate, Normal S1, Normal S2, No murmurs Abdominal: Active bowel sounds, Soft, no distention, no tenderness Extremities: partial amputation of left 2nd toe, dorsal ulceration on left 5th toe and swelling. Trace edema, Normal pulses, Skin: dorsal ulceration on left 5th toe and swelling Neuro: Normal speech, sensorimotor deficits none Psych/Mental Status: Mental status NL, Mood NL Nurse was there as sharperone during examination laboratory and microbiology Laboratory Tests 04/18/24 05:15 Test 04/18/24 05:15 Range/Units Serum Glucose 136 #H 74-106 mg/dL Microbiology Date/Time Source Procedure Growth Status 04/17/24 11:14 Blood Blood Culture - Preliminary NO GROWTH AFTER 24 HOURS OF INCUBATION. Resulted Labs and/or images reviewed: Labs reviewed by me, Image(s) reviewed by me Problem List/Assessment/Plan Problem List/Assessment/Plan # Osteomyelitis 5th left toe. # chronic nonhealing diabetic ulcer 5th left toe with possible cellulitis # ? peripheral vascular disease - continuously monitor -Left lower extremity food CT and x-ray showed 5th proximal and middle phalanx osteomyelitis and Soft tissue swelling compatible with cellulitis. -Ordered wound cultures. -Currently on vancomycin and Zosyn. -Podiatric dietitian consultant evaluated the patient, advised amputation of the 5th left toe at MPJ with possible metatarsal head resection as deem necessary and recommend angiogram/plasty LLE. -Cardiology consult is pending. - started aspirin and Lipitor # uncontrolled type 2 DM with HbA1c 8.5 - currently on ISS - Lantus 30 units and lispro 7 units t.i.d. # uncontrolled hypertension - continuously monitor - resume home meds # HLD - currently on Lipitor # S/P amputation 2nd left toe with intact sutures. Lovenox for now No GI PPX cardiac and diabetic diet Reconciled home meds Goals of care discussed with the patient for more than 27 minutes: Full code status Case management discussed with Dr. Rodriguez, patient, family and nurse Plan discussed with: Patient, Daughter My Orders My Orders Orders - VETSA COLON RESIDENT Procedure Category Date Status Time Vitamin D, 25-Hydroxy LAB 04/18/24 In Process 08:12 Vitamin B12 LAB 04/18/24 In Process 08:12 Aspirin Tablet PHA 04/18/24 In Process 10:00 Atorvastatin (Lipitor) PHA 04/18/24 In Process 22:00 Amlodipine Tablet PHA 04/18/24 In Process (Norvasc Tablet) 10:00 Valsartan (Diovan) PHA 04/18/24 In Process 10:00 Insulin Lantus PHA 04/19/24 Logged (Glargine) (Lantus) 07:00 Insulin Lispro PHA 04/18/24 Logged (Human) (Humalog) 14:15 Enoxaparin Sodium PHA 04/18/24 Transmitted (Lovenox) 14:30 Enoxaparin Sodium PHA 04/19/24 Transmitted (Lovenox) 10:00 Basic Metabolic Panel LAB 04/19/24 Verified 04:00 Complete Blood Count LAB 04/19/24 Verified 04:00 Date of Service: Apr 18, 2024 Billing Provider: TOMMY RODRIGUEZ MD Common Visit Codes: [id number] INP/OBS CARE(HIGH) VESTA COLON RESIDENT Apr 18, 2024 14:22 TOMMY RODRIGUEZ MD Apr 20, 2024 23:02
[2024-04-18] MEDS ORDERED: DEXTROSE (50%) 50ML SYRG IV PRN (16:00)
--- NOTE | 2024-04-18 16:51 | DVHINCON2 ---
Date Seen: Apr 18, 2024 Referring Physician MD Cris Reason for Consultation PAD History of Present Illness This is a 68-year-old male who presented to the emergency room with a chief complaint of wound care. The patient reports he developed a diabetic ulcer to his left 5th toe progressively getting worse draining fluid with foul smell and paresthesia. Reports he has been on oral antibiotics for over a week with no improvement of symptoms. He underwent a food CT revealing 5th proximal and middle phalanx osteomyelitis. The patient also underwent a bilateral arterial duplex revealing [id number] peripheral arterial disease. Significant medical history includes hypertension, dyslipidemia, insulin-dependent diabetes mellitus, and recent left 2nd toe amputation three months ago. Past Medical History Past medical history reviewed. No other significant than mentioned above. Past Surgical History Left 3rd toe amputation three months ago Family History: Patient reports no known family medical history. Family History Family history reviewed. Social History Denies the use of illicit drugs, alcohol, or tobacco use. Allergies: Coded Allergies: No Known Drug Allergy (Verified Allergy, Unknown, 04/17/24) Home Meds Unable to Obtain Active Prescriptions or Reported Meds Home Meds Home medications reviewed. Current Medications Current Medications Medications (Trade) Dose Ordered Sig/Debi Route PRN Reason Start Time Stop Time Status Last Admin Zinc Sulfate 220 mg DAILY PO 04/18/24 10:00 04/18/24 09:11 Ascorbic Acid (Vitamin C Tablet) 500 mg BID PO 04/17/24 22:00 04/18/24 09:10 Multivitamins (Mvi Tab) 1 tab DAILY PO 04/18/24 10:00 04/18/24 09:11 Vancomycin HCl 150 ml @ 150 mls/hr Q12H IV 04/18/24 00:00 04/18/24 12:37 Aspirin 81 mg DAILY PO 04/18/24 10:00 04/18/24 11:12 Atorvastatin Calcium (Lipitor) 40 mg HS PO 04/18/24 22:00 Amlodipine Besylate (Norvasc Tablet) 10 mg DAILY PO 04/18/24 10:00 04/18/24 11:10 Valsartan (Diovan) 320 mg DAILY PO 04/18/24 10:00 Insulin Glargine (Lantus) 30 units QAM SC 04/19/24 07:00 Insulin Human Lispro (HumaLOG) 7 units TID SC 04/18/24 14:15 Enoxaparin Sodium (Lovenox) 40 mg DAILY SC 04/19/24 10:00 Sodium Chloride (Saline Lock Ns) 10 ml QSHIFT@10,22 IV 04/18/24 22:00 Diagnostic Test (Pha) (Accu-Chek Comfort Curve T) 1 strip ACHS 04/18/24 17:00 Insulin Human Regular (InsuLIN R) HS SC 04/18/24 22:00 Insulin Human Regular (InsuLIN R) AC SC 04/18/24 17:00 Dextrose 50 ml UD PRN IV Blood Sugar LESS THAN 60 04/18/24 16:00 Review of Systems Constitutional: No symptom reported Ears, Nose, & Throat: No symptom reported Eyes: No symptom reported Neurological: No symptoms reported Pulmonary/Respiratory: No symptom reported Cardiovascular: No symptom reported Gastrointestinal: No symptom reported Genitourinary: No symptom reported Musculoskeletal: Left 5th toe wound Skin: No symptom reported Psychiatric: No symptom reported Endocrine: No symptom reported Hemotologic/Lymphatic: No symptom reported Vital Signs Vital Signs Date Time Temp Pulse Resp B/P (MAP) Pulse Ox O2 Delivery O2 Flow Rate FiO2 04/18/24 12:38 97.7 61 18 160/70 (100) 89 97.7 04/18/24 08:00 Room Air* 0 21 Physical Exam General Appearance: Cooperative. Well developed. Obese. In no acute distress Head Exam: Normal inspection Neck Exam: Normal inspection. Non-tender. Normal alignment Pulmonary/Respiratory: Chest non-tender. Clear bilateral breath sounds Cardiovascular/Chest: Regular rate and rhythm. S1, S2. Sinus rhythm. No murmurs. No JVD. Peripheral Pulses: 2+ Radial (R). 2+ Radial (L). 2+ Pedal (R). 2+ Pedal (L) Abdominal Exam: Normal bowel sounds. Soft. Nontender. No hepatospenomegaly. No masses Ankle Exam: Left ankle edema Lower extremities: Negative lower extremity edema. Hair loss present to BLE Neuro/Mental Status: A&O x4. Coherent Thoughts/Psych: Normal thought pattern. Appropriate mood and affect. Good judgement and insight Appearance: In no acute distress Skin Exam: Abnormal left foot. See wound care pictures Labs/Diagnostic Data Labs Test 04/18/24 12:28 04/18/24 09:45 04/18/24 05:15 04/17/24 11:32 Range/Units POC Glucose 172 H 70-106 mg/dl Prothrombin Time 10.8 9.3-11.8 sec Prothrombin Time INR 1.02 0.9-1.15 Activated Partial Thromboplast Time 25.1 24.5-34.5 SEC White Blood Count 8.8 4.4-10.8 10^3/uL Red Blood Count 4.88 4.5-5.90 10^6/uL Hemoglobin 14.3 # 13.5-17.5 g/dL Hematocrit 42.1 # 41.0-53.0 % Mean Corpuscular Volume 86.2 80.0-100.0 fL Mean Corpuscular Hemoglobin 29.2 28.0-32.0 pg Mean Corpuscular Hemoglobin Concent 33.9 32.0-36.0 g/dL Red Cell Distribution Width 13.2 11.8-14.3 % Platelet Count 218 140-450 10^3/uL Mean Platelet Volume 7.8 6.9-10.8 fL Neutrophils (%) (Auto) 62.1 37.0-80.0 % Lymphocytes (%) (Auto) 23.3 10.0-50.0 % Monocytes (%) (Auto) 7.9 0.0-12.0 % Eosinophils (%) (Auto) 6.1 0.0-7.0 % Basophils (%) (Auto) 0.6 0.0-2.0 % Neutrophils # (Auto) 5.5 1.6-8.6 10 ^3/uL Lymphocytes # (Auto) 2.1 0.4-5.4 10 ^3/uL Monocytes # (Auto) 0.7 0-1.3 10 ^3/uL Eosinophils # (Auto) 0.5 0-0.8 10 ^3/uL Basophils # (Auto) 0 0-0.2 10 ^3/uL Nucleated Red Blood Cells 0.0 % Sodium Level 142 136-145 mmol/L Potassium Level 3.8 3.5-5.1 mmol/L Chloride Level 107 98-107 mmol/L Carbon Dioxide Level 26 20-31 mmol/L Anion Gap 9 5-15 Blood Urea Nitrogen 20 9-23 mg/dL Creatinine 1.05 0.700-1.30 mg/dL Glomerular Filtration Rate Calc 76 >90 mL/min BUN/Creatinine Ratio 19.0 10.0-20.0 Serum Glucose 136 #H 74-106 mg/dL Calcium Level 9.2 8.7-10.4 mg/dL Magnesium Level 1.6 1.6-2.6 mg/dL Total Bilirubin 0.5 0.2-1.0 mg/dL Aspartate Amino Transferase (AST) 11 L 13-40 U/L Alanine Aminotransferase (ALT) 16 7-40 U/L Alkaline Phosphatase 96 46-116 U/L Total Protein 6.3 5.7-8.2 g/dL Albumin 3.7 3.2-4.8 g/dL Thyroid Stimulating Hormone (TSH) 1.65 0.55-4.78 uIU/mL Urine Color Light-yellow Yellow Urine Clarity Clear Clear Urine pH 5.5 5.0-9.0 Urine Specific [place] 1.018 1.001-1.035 Urine Protein 2+ H Negative Urine Ketones Negative Negative Urine Blood Trace H Negative /uL Urine Nitrite Negative Negative Urine Bilirubin Negative Negative Urine Urobilinogen Normal Negative mg/dL Urine Leukocyte Esterase Negative Negative /uL Urine RBC <1 0 - 3 /hpf Urine WBC 1 0 - 3 /hpf Urine Squamous Epithelial Cells None seen <5 /hpf Urine Bacteria None seen None Seen /hpf Urine Glucose 4+ H Normal mg/dL Test 04/17/24 11:14 Range/Units Erythrocyte Sedimentation Rate 12 0-20 mm/hr Hemoglobin A1c 8.5 H <5.7 % A1C Lactic Acid Level 1.8 0.4-2.0 mmol/L Microbiology Date/Time Source Procedure Growth Status 04/17/24 11:14 Blood Blood Culture - Preliminary NO GROWTH AFTER 24 HOURS OF INCUBATION. Resulted Assessment Diabetic ulcer with left 5th toe osteomyelitis Recent left 2nd toe amputation, 3 mos ago Peripheral arterial disease, moderate to severe Insulin-dependent diabetes mellitus, HgbA1c 8.5% Hypertension Dyslipidemia Morbid obesity Plan/Recommendation (Dr. Pearson) The patient with peripheral arterial disease of the lower extremities and associated osteomyelitis will undergo a peripheral angiogram on 04/22/2024. In the meantime, continue single-antiplatelet therapy and lipid lowering agent. Denies claudication at this time, hold cilostazol. Continue tight glycemic control and aggressive ABX therapy. Strongly counseled on diet, exercise, and weight loss. Thank you for allowing us to participate in this patient's care. Please call if you have any questions or concerns. This medical document was created using an electronic medical record system with voice recognition software and computerized dictation system. Although this document has been carefully reviewed, there might still be some phonetic and typographical errors. Occasional wrong-word or ``sound-alike substitutions may have occurred due to the inherent limitations of voice recognition software. These areas are purely typographical due to imperfections of the software programs and do not reflect any compromise in the patient's medical care. Please read the chart carefully and recognize, using context, where these substitutions have occurred. Plan discussed with: Patient, Other Date of Service: Apr 18, 2024 Billing Provider: MARIANNA PEARSON MD Cardiology Common Codes: [id number] INP/OBS CARE (High) [facility] Apr 18, 2024 16:51
[2024-04-18] MEDS: InsuLIN REG 1unit/0.01ml Soln (100units/ml) SC SCH ×2 (16:53→22:39)
[2024-04-18] MEDS: ENOXAPARIN SOD 40 MG/0.4 ML SYRINGE SC ONE (16:54)
[2024-04-18] MEDS: ACCU-CHEK COMFORT CURVE STRIP VI SCH (16:55)
[2024-04-18 17:29] LABS: LDL Cholesterol 52 mg/dL (< 100)
[2024-04-18 17:30] LABS: Cholesterol 109 mg/dL (< 200)
[2024-04-18 17:31] LABS: HDL Cholesterol 25 mg/dL (40-59); Triglycerides 181 mg/dL (< 150)
[2024-04-18] MEDS: ATORVASTATIN 20 MG TAB PO SCH (21:12)
[2024-04-18] MEDS: SODIUM CHLOR 0.9% PF (SALINE LOCK) 10ML VIAL/SYR IV SCH (21:14)
[2024-04-19] VITALS (7 sets, daily range): BP systolic 117–147; BP diastolic 54–68; PULSE 57–64; RESP 15–20; TEMP 97.4–98.5; O2SAT 90–98
[2024-04-19 06:24] LABS: Basophils # (auto) 0.1 10 ^3/uL (0-0.2); Eosinophils # (auto) 0.6 10 ^3/uL (0-0.8); Eosinophils % (auto) 6.9 % (0.0-7.0); Hematocrit 42.6 % (41.0-53.0); Hemoglobin 14.7 g/dL (13.5-17.5); Lymphocytes # (auto) 2.3 10 ^3/uL (0.4-5.4); Lymphocytes % (auto) 27.9 % (10.0-50.0); Mean Corpuscular Hemoglobin 29.4 pg (28.0-32.0); Mean Corpuscular Hgb Conc. 34.4 g/dL (32.0-36.0); Mean Corpuscular Volume 85.4 fL (80.0-100.0); Monocytes # (auto) 0.7 10 ^3/uL (0-1.3); Monocytes % (auto) 8.2 % (0.0-12.0); Neutrophils # (auto) 4.5 10 ^3/uL (1.6-8.6); Nucleated Red Blood Cells % 0.1 %; Platelet Count (auto) 211 10^3/uL (140-450); Red Blood Cells 4.99 10^6/uL (4.5-5.90); Red Cell Distribution Width 13.5 % (11.8-14.3); White Blood Cell 8.1 10^3/uL (4.4-10.8)
[2024-04-19 06:35] LABS: Chloride 107 mmol/L (98-107); Potassium 3.9 mmol/L (3.5-5.1); Sodium 143 mmol/L (136-145)
[2024-04-19 06:36] LABS: Anion Gap 8 (5-15); Calcium 9.4 mg/dL (8.7-10.4); Carbon Dioxide 28 mmol/L (20-31)
[2024-04-19 06:41] LABS: BUN/Creatinine Ratio 14.6 (10.0-20.0); Blood Urea Nitrogen 15 mg/dL (9-23)
[2024-04-19 06:47] LABS: Glucose 125 mg/dL (74-106)
[2024-04-19] MEDS: INSULIN LANTUS (GLARGINE) 1 /0.01ml (100units/ml) SC SCH (07:01)
[2024-04-19] MEDS: ENOXAPARIN SOD 40 MG/0.4 ML SYRINGE SC SCH (10:28)
[2024-04-19] MEDS: VANCOMYCIN 1GM/250ML KIT 200 ML IV SCH (11:50)
--- NOTE | 2024-04-19 15:33 | DVHPNRES ---
Progress Note Date Seen: Apr 19, 2024 Resident Creating Document: VESTA COLON RESIDENT Medical Necessity Reason Pt with a Central, PICC or Fol: No Subjective Review of Systems Majo BERMUDEZ a 68-year-old Malaysian-speaking male with a PMH of type 2 DM, HTN, HLD, 2nd left toe amputation presented to the ED for the evaluation chronic left 5th toe wound. Patient seen and examined at the bedside. Patient reported improvement in pain since admission. Left lower extremity food CT and x-ray showed 5th proximal and middle phalanx osteomyelitis and Soft tissue swelling compatible with cellulitis. Ordered wound cultures. Currently on vancomycin and Zosyn. Podiatric provider relations consultant evaluated the patient, advised amputation of the 5th left toe at MPJ with possible metatarsal head resection as deem necessary and recommend angiogram/plasty LLE. Cardiology consult evaluated the patient and advised to do peripheral angiogram on 04/22/2024. In the meantime, continue single-antiplatelet therapy and lipid lowering agent. Denies claudication at this time, hold cilostazol. Continue tight glycemic control and aggressive ABX therapy. Objective vital signs Vital Sign Date Time Temp Pulse Resp B/P (MAP) Pulse Ox O2 Delivery O2 Flow Rate FiO2 04/19/24 13:00 98.0 57 16 138/68 (91) 94 98.0 04/19/24 08:00 Room Air* 0 21 Total Intake and Output 04/18/24 04/18/24 04/19/24 14:59 22:59 06:59 Intake Total 750 ml 550 ml 400 ml Output Total 2050 ml Balance 750 ml 550 ml -1650 ml medications Current Medications Medications Dose Ordered Sig/Debi Route Start Time Stop Time Status Last Admin Dose Admin Vancomycin HCl 0 ml @ 0 mls/hr UD IV 04/17/24 13:30 Piperacillin Sod/ Tazobactam Sod 100 ml @ 25 mls/hr Q8HR IV 04/17/24 14:00 04/19/24 13:52 25 MLS/HR Sodium Chloride 1,000 ml @ 60 mls/hr [id number] IV 04/17/24 13:30 04/19/24 00:35 60 MLS/HR Acetaminophen/ Hydrocodone Bitart 1 tab Q4HP PRN PO 04/17/24 13:30 Ondansetron HCl 4 mg Q4HP PRN IV 04/17/24 13:30 Docusate Sodium 100 mg BIDPRN PRN PO 04/17/24 13:30 Zinc Sulfate 220 mg DAILY PO 04/18/24 10:00 04/19/24 10:24 220 MG Ascorbic Acid 500 mg BID PO 04/17/24 22:00 04/19/24 10:27 500 MG Multivitamins 1 tab DAILY PO 04/18/24 10:00 04/19/24 10:25 1 TAB Acetaminophen 650 mg Q6HP PRN PO 04/17/24 13:30 Morphine Sulfate 2 mg Q4HPRN PRN IV 04/17/24 13:30 Aspirin 81 mg DAILY PO 04/18/24 10:00 04/19/24 10:27 81 MG Atorvastatin Calcium 40 mg HS PO 04/18/24 22:00 04/18/24 21:12 40 MG Amlodipine Besylate 10 mg DAILY PO 04/18/24 10:00 04/19/24 10:27 10 MG Valsartan 320 mg DAILY PO 04/18/24 10:00 04/19/24 10:25 320 MG Insulin Glargine 30 units QAM SC 04/19/24 07:00 04/19/24 07:01 30 UNITS Insulin Human Lispro 7 units TID SC 04/18/24 14:15 04/19/24 14:07 7 UNITS Enoxaparin Sodium 40 mg DAILY SC 04/19/24 10:00 04/19/24 10:28 40 MG Sodium Chloride 10 ml QSHIFT@10,22 IV 04/18/24 22:00 04/19/24 11:51 10 ML Diagnostic Test (Pha) 1 strip ACHS 04/18/24 17:00 04/19/24 11:51 1 STRIP Insulin Human Regular HS SC 04/18/24 22:00 04/18/24 22:39 2 UNITS Insulin Human Regular AC SC 04/18/24 17:00 04/19/24 11:51 6 UNITS Dextrose 50 ml UD PRN IV 04/18/24 16:00 Vancomycin HCl 200 ml @ 200 mls/hr Q12H IV 04/19/24 12:00 04/19/24 11:50 200 MLS/HR Examination Pt is lying on bed General Appearance: Alert, Oriented X3, Cooperative, Not in acute distress HEENT: Atraumatic, Mucous membranes moist/pink Respiratory: Clear to auscultation, Normal air movement, No added sounds Cardiovascular: Regular rate, Normal S1, Normal S2, No murmurs Abdominal: Active bowel sounds, Soft, no distention, no tenderness Extremities: partial amputation of left 2nd toe, dorsal ulceration on left 5th toe and swelling. Trace edema, Normal pulses, Skin: dorsal ulceration on left 5th toe and swelling Neuro: Normal speech, sensorimotor deficits none Psych/Mental Status: Mental status NL, Mood NL Nurse was there as sharperone during examination laboratory and microbiology Laboratory Tests 04/19/24 06:08 Test 04/19/24 06:08 Range/Units Serum Glucose 125 H 74-106 mg/dL Microbiology Date/Time Source Procedure Growth Status 04/18/24 11:23 Toe Left (Little) Gram Stain Pending Resulted 04/18/24 11:23 Toe Left (Little) Wound Culture - Preliminary Resulted 04/17/24 11:14 Blood Blood Culture - Preliminary NO GROWTH AFTER 48 HOURS OF INCUBATION. Resulted Labs and/or images reviewed: Labs reviewed by me, Image(s) reviewed by me Problem List/Assessment/Plan Problem List/Assessment/Plan # Osteomyelitis 5th left toe. # chronic nonhealing diabetic ulcer 5th left toe with possible cellulitis # Peripheral vascular disease moderate to severe - continuously monitor -Left lower extremity food CT and x-ray showed 5th proximal and middle phalanx osteomyelitis and Soft tissue swelling compatible with cellulitis. -Ordered wound cultures. -Currently on vancomycin and Zosyn. -Podiatric provider relations consultant evaluated the patient, advised amputation of the 5th left toe at MPJ with possible metatarsal head resection as deem necessary and recommend angiogram/plasty LLE. -Cardiology consult, advised that she will undergo a peripheral angiogram on 04/22/2024. - In the meantime, continue single-antiplatelet therapy and lipid lowering agent. Denies claudication at this time, hold cilostazol. Continue tight glycemic control and aggressive ABX therapy. - started aspirin and Lipitor # uncontrolled type 2 DM with HbA1c 8.5 - currently on ISS - Lantus 30 units and lispro 7 units t.i.d. # uncontrolled hypertension - continuously monitor - resume home meds # HLD - currently on Lipitor # morbid obesity with a BMI 42.8 - counseled on lifestyle modifications including diet and exercise # S/P amputation 2nd left toe with intact sutures. Lovenox for now No GI PPX cardiac and diabetic diet Reconciled home meds Goals of care discussed with the patient and familyfor more than 27 minutes: Full code status Case management discussed with Dr. Rodriguez, patient , family and nurse Plan discussed with: Patient My Orders My Orders Orders - VESTA COLON Procedure Category Date Status Time Glucose Blood PHA 04/18/24 In Process (Accu-Chek Comfort 17:00 Insulin R (Human) PHA 04/18/24 In Process (Insulin R) 22:00 Insulin R (Human) PHA 04/18/24 In Process (Insulin R) 17:00 Dextrose 50% Syringe PHA 04/18/24 In Process 16:00 Date of Service: Apr 19, 2024 Billing Provider: TOMMY RODRIGUEZ MD Common Visit Codes: [id number] INP/OBS CARE(HIGH) VESTA COLON Apr 19, 2024 15:33 TOMMY RODRIGUEZ MD Apr 20, 2024 23:02
[2024-04-20 05:00] VITALS: BP 114/48; PULSE 68; RESP 19; TEMP 98.5; O2SAT 90
[2024-04-20 06:26] LABS: Basophils # (auto) 0.1 10 ^3/uL (0-0.2); Basophils % (auto) 0.8 % (0.0-2.0); Eosinophils # (auto) 0.4 10 ^3/uL (0-0.8); Eosinophils % (auto) 4.7 % (0.0-7.0); Hematocrit 45.4 % (41.0-53.0); Hemoglobin 15.3 g/dL (13.5-17.5); Lymphocytes # (auto) 2.1 10 ^3/uL (0.4-5.4); Lymphocytes % (auto) 24.7 % (10.0-50.0); Mean Corpuscular Hemoglobin 28.8 pg (28.0-32.0); Mean Corpuscular Hgb Conc. 33.6 g/dL (32.0-36.0); Mean Corpuscular Volume 85.8 fL (80.0-100.0); Monocytes # (auto) 0.7 10 ^3/uL (0-1.3); Monocytes % (auto) 8.1 % (0.0-12.0); Neutrophils # (auto) 5.2 10 ^3/uL (1.6-8.6); Neutrophils % (auto) 61.7 % (37.0-80.0); Nucleated Red Blood Cells % 0.2 %; Platelet Count (auto) 224 10^3/uL (140-450); Red Blood Cells 5.29 10^6/uL (4.5-5.90); Red Cell Distribution Width 13.5 % (11.8-14.3); White Blood Cell 8.4 10^3/uL (4.4-10.8)
[2024-04-20 06:41] LABS: Chloride 105 mmol/L (98-107); Potassium 3.6 mmol/L (3.5-5.1); Sodium 143 mmol/L (136-145)
[2024-04-20 06:42] LABS: Anion Gap 11 (5-15); Calcium 9.6 mg/dL (8.7-10.4); Carbon Dioxide 27 mmol/L (20-31)
[2024-04-20 06:47] LABS: BUN/Creatinine Ratio 13.2 (10.0-20.0); Blood Urea Nitrogen 14 mg/dL (9-23); Glucose 91 mg/dL (74-106)
[2024-04-20 09:00] VITALS: BP_SYST 108; BP_SYST 118; BP_DIAS 55; BP_DIAS 69; PULSE 74; PULSE 89; RESP 23; RESP 31; TEMP 98; TEMP 98.6; O2SAT 92
--- NOTE | 2024-04-20 09:03 | DVHPNRES ---
Progress Note Date Seen: Apr 20, 2024 Resident Creating Document: VESTA COLON RESIDENT Medical Necessity Reason Pt with a Central, PICC or Fol: No Subjective Review of Systems Majo BERMUDEZ a 68-year-old Maltese-speaking male with a PMH of type 2 DM, HTN, HLD, 2nd left toe amputation presented to the ED for the evaluation chronic left 5th toe wound. Patient seen and examined at the bedside. Patient reported improvement in pain since admission. Left lower extremity food CT and x-ray showed 5th proximal and middle phalanx osteomyelitis and Soft tissue swelling compatible with cellulitis. Ordered wound cultures, Preliminary showing g negative rods ESBL sensitive to Zosyn. Currently on vancomycin and Zosyn. Podiatric senior consumer insights consultant evaluated the patient, advised amputation of the 5th left toe at MPJ with possible metatarsal head resection as deem necessary and recommend angiogram/plasty LLE. Cardiology consult evaluated the patient and advised to do peripheral angiogram on 04/22/2024. In the meantime, continue single-antiplatelet therapy and lipid lowering agent. Denies claudication at this time, hold cilostazol. Continue tight glycemic control and aggressive ABX therapy. Patient reports: No new complaints, Feels better Objective vital signs Vital Sign Date Time Temp Pulse Resp B/P (MAP) Pulse Ox O2 Delivery O2 Flow Rate FiO2 04/20/24 05:00 98.5 68 19 114/48 (70) 90 98.5 04/19/24 20:00 Room Air* 0 21 Total Intake and Output 04/19/24 04/19/24 04/20/24 15:00 23:00 07:00 Intake Total 300 ml 945 ml 1025 ml Output Total 950 ml 1300 ml Balance 300 ml -5 ml -275 ml medications Current Medications Medications Dose Ordered Sig/Debi Route Start Time Stop Time Status Last Admin Dose Admin Vancomycin HCl 0 ml @ 0 mls/hr UD IV 04/17/24 13:30 Piperacillin Sod/ Tazobactam Sod 100 ml @ 25 mls/hr Q8HR IV 04/17/24 14:00 04/20/24 05:37 25 MLS/HR Sodium Chloride 1,000 ml @ 60 mls/hr [id number] IV 04/17/24 13:30 04/19/24 17:21 60 MLS/HR Acetaminophen/ Hydrocodone Bitart 1 tab Q4HP PRN PO 04/17/24 13:30 Ondansetron HCl 4 mg Q4HP PRN IV 04/17/24 13:30 Docusate Sodium 100 mg BIDPRN PRN PO 04/17/24 13:30 Zinc Sulfate 220 mg DAILY PO 04/18/24 10:00 04/19/24 10:24 220 MG Ascorbic Acid 500 mg BID PO 04/17/24 22:00 04/19/24 20:43 500 MG Multivitamins 1 tab DAILY PO 04/18/24 10:00 04/19/24 10:25 1 TAB Acetaminophen 650 mg Q6HP PRN PO 04/17/24 13:30 Morphine Sulfate 2 mg Q4HPRN PRN IV 04/17/24 13:30 Aspirin 81 mg DAILY PO 04/18/24 10:00 04/19/24 10:27 81 MG Atorvastatin Calcium 40 mg HS PO 04/18/24 22:00 04/19/24 20:43 40 MG Amlodipine Besylate 10 mg DAILY PO 04/18/24 10:00 04/19/24 10:27 10 MG Valsartan 320 mg DAILY PO 04/18/24 10:00 04/19/24 10:25 320 MG Insulin Glargine 30 units QAM SC 04/19/24 07:00 04/19/24 07:01 30 UNITS Insulin Human Lispro 7 units TID SC 04/18/24 14:15 04/19/24 22:08 7 UNITS Enoxaparin Sodium 40 mg DAILY SC 04/19/24 10:00 04/19/24 10:28 40 MG Sodium Chloride 10 ml QSHIFT@10,22 IV 04/18/24 22:00 04/19/24 20:43 10 ML Diagnostic Test (Pha) 1 strip ACHS 04/18/24 17:00 04/20/24 06:07 1 STRIP Insulin Human Regular HS SC 04/18/24 22:00 04/19/24 22:09 4 UNITS Insulin Human Regular AC SC 04/18/24 17:00 04/19/24 11:51 6 UNITS Dextrose 50 ml UD PRN IV 04/18/24 16:00 Vancomycin HCl 200 ml @ 200 mls/hr Q12H IV 04/19/24 12:00 04/20/24 00:28 200 MLS/HR Examination Pt is lying on bed General Appearance: Alert, Oriented X3, Cooperative, Not in acute distress HEENT: Atraumatic, Mucous membranes moist/pink Respiratory: Clear to auscultation, Normal air movement, No added sounds Cardiovascular: Regular rate, Normal S1, Normal S2, No murmurs Abdominal: Active bowel sounds, Soft, no distention, no tenderness Extremities: partial amputation of left 2nd toe, dorsal ulceration on left 5th toe and swelling. Trace edema, Normal pulses, Skin: dorsal ulceration on left 5th toe and swelling Neuro: Normal speech, sensorimotor deficits none Psych/Mental Status: Mental status NL, Mood NL Nurse was there as sharperone during examination laboratory and microbiology Laboratory Tests 04/20/24 05:55 Test 04/20/24 05:55 Range/Units Serum Glucose 91 74-106 mg/dL Microbiology Date/Time Source Procedure Growth Status 04/18/24 11:23 Toe Left (Little) Gram Stain Pending Resulted 04/18/24 11:23 Toe Left (Little) Wound Culture - Preliminary Resulted 04/17/24 11:14 Blood Blood Culture - Preliminary NO GROWTH AFTER 48 HOURS OF INCUBATION. Resulted Labs and/or images reviewed: Labs reviewed by me, Image(s) reviewed by me Problem List/Assessment/Plan Problem List/Assessment/Plan # Osteomyelitis 5th left toe. # chronic nonhealing diabetic ulcer 5th left toe with possible cellulitis # Peripheral vascular disease moderate to severe -continuously monitor -Left lower extremity food CT and x-ray showed 5th proximal and middle phalanx osteomyelitis and Soft tissue swelling compatible with cellulitis. -Ordered wound cultures,Preliminary showing g negative rods ESBL sensitive to Zosyn. -Currently on vancomycin and Zosyn. -Podiatric senior consumer insights consultant evaluated the patient, advised amputation of the 5th left toe at MPJ with possible metatarsal head resection as deem necessary and recommend angiogram/plasty LLE. -Cardiology consult, advised that she will undergo a peripheral angiogram on 04/22/2024. - In the meantime, continue single-antiplatelet therapy and lipid lowering agent. Denies claudication at this time, hold cilostazol. Continue tight glycemic control and aggressive ABX therapy. - started aspirin and Lipitor # uncontrolled type 2 DM with HbA1c 8.5 - currently on ISS - Lantus 30 units and lispro 7 units t.i.d. # uncontrolled hypertension - continuously monitor - resume home meds # HLD - currently on Lipitor # morbid obesity with a BMI 42.8 - counseled on lifestyle modifications including diet and exercise # S/P amputation 2nd left toe with intact sutures. Lovenox for now No GI PPX cardiac and diabetic diet Reconciled home meds Goals of care discussed with the patient and familyfor more than 27 minutes: Full code status Case management discussed with Dr. Tamez, patient , family and nurse Plan discussed with: Patient VESTA COLON RESIDENT Apr 20, 2024 09:03 FERNANDO TAMEZ MD Apr 25, 2024 08:48
[2024-04-20 13:00] VITALS: BP 103/64; PULSE 52; RESP 21; TEMP 97.5; O2SAT 93
[2024-04-20 17:00] VITALS: BP 130/58; PULSE 59; RESP 22; TEMP 98.2; O2SAT 94
[2024-04-20 19:30] VITALS: O2SAT 95
[2024-04-20 21:00] VITALS: BP 149/57; PULSE 60; RESP 17; TEMP 97.5; O2SAT 96
[2024-04-21] VITALS (8 sets, daily range): BP systolic 110–139; BP diastolic 59–73; PULSE 56–87; RESP 16–21; TEMP 97.5–98.5; O2SAT 90–96
[2024-04-21 05:41] LABS: Basophils # (auto) 0 10 ^3/uL (0-0.2); Basophils % (auto) 0.5 % (0.0-2.0); Eosinophils # (auto) 0.5 10 ^3/uL (0-0.8); Eosinophils % (auto) 5.5 % (0.0-7.0); Hemoglobin 14.6 g/dL (13.5-17.5); Lymphocytes # (auto) 2.4 10 ^3/uL (0.4-5.4); Lymphocytes % (auto) 28.8 % (10.0-50.0); Mean Corpuscular Hemoglobin 29.1 pg (28.0-32.0); Mean Corpuscular Volume 85.4 fL (80.0-100.0); Monocytes # (auto) 0.8 10 ^3/uL (0-1.3); Monocytes % (auto) 9.6 % (0.0-12.0); Neutrophils # (auto) 4.5 10 ^3/uL (1.6-8.6); Neutrophils % (auto) 55.6 % (37.0-80.0); Platelet Count (auto) 222 10^3/uL (140-450); Red Blood Cells 5.03 10^6/uL (4.5-5.90); Red Cell Distribution Width 13.4 % (11.8-14.3); White Blood Cell 8.2 10^3/uL (4.4-10.8)
[2024-04-21 06:07] LABS: Chloride 105 mmol/L (98-107); Sodium 142 mmol/L (136-145)
[2024-04-21 06:08] LABS: Anion Gap 8 (5-15); Calcium 9.7 mg/dL (8.7-10.4); Carbon Dioxide 29 mmol/L (20-31)
[2024-04-21 06:13] LABS: Blood Urea Nitrogen 16 mg/dL (9-23)
[2024-04-21 06:14] LABS: Glucose 127 mg/dL (74-106)
--- NOTE | 2024-04-21 11:25 | DVH ---
CLINICAL INFORMATION: 68 years old, Male; Respiratory failure. TECHNIQUE: Single AP portable chest radiograph was obtained. COMPARISON: None FINDINGS: Lungs: Atelectasis in the lung bases. No focal consolidation. Portions of the right costophrenic sulc us are excluded from the [id number]. Cardiac: Heart size is within normal limits. Pulmonary vasculature: PICC distal tip reaches the proximal to mid SVC. Bones: No acute osseous abnormality identified. Other: No other significant findings. IMPRESSION: 1. Mild prominence of the pulmonary vasculature May suggest a degree of pulmonary vascular congestion in the appropriate clinical setting. 2. Atelectasis in the lung bases with no focal consolidation visualized. 3. Right PICC distal tip is at the mid to proximal to mid SVC level.
--- NOTE | 2024-04-21 13:02 | DVHPN2 ---
Consult Progress Note Date Seen: Apr 21, 2024 Subjective Review of Systems: CVS:Normal, RESPIRATORY:Normal, NEURO:Normal Objective vital signs Vital Sign Date Time Temp Pulse Resp B/P (MAP) Pulse Ox O2 Delivery O2 Flow Rate FiO2 04/21/24 12:57 97.6 67 21 110/59 (76) 95 97.6 04/21/24 08:00 Nasal Cannula* 1 24 Total Intake and Output 04/20/24 04/20/24 04/21/24 15:00 23:00 07:00 Intake Total 900 ml 1000 ml Output Total 780 ml 1250 ml Balance 120 ml -250 ml medications Current Medications Medications Dose Ordered Sig/Debi Route Start Time Stop Time Status Last Admin Dose Admin Vancomycin HCl 0 ml @ 0 mls/hr UD IV 04/17/24 13:30 Sodium Chloride 1,000 ml @ 60 mls/hr [id number] IV 04/17/24 13:30 04/21/24 10:00 60 MLS/HR Acetaminophen/ Hydrocodone Bitart 1 tab Q4HP PRN PO 04/17/24 13:30 Ondansetron HCl 4 mg Q4HP PRN IV 04/17/24 13:30 Docusate Sodium 100 mg BIDPRN PRN PO 04/17/24 13:30 Zinc Sulfate 220 mg DAILY PO 04/18/24 10:00 04/21/24 08:42 220 MG Ascorbic Acid 500 mg BID PO 04/17/24 22:00 04/21/24 08:45 500 MG Multivitamins 1 tab DAILY PO 04/18/24 10:00 04/21/24 08:42 1 TAB Acetaminophen 650 mg Q6HP PRN PO 04/17/24 13:30 Morphine Sulfate 2 mg Q4HPRN PRN IV 04/17/24 13:30 Aspirin 81 mg DAILY PO 04/18/24 10:00 04/21/24 08:45 81 MG Atorvastatin Calcium 40 mg HS PO 04/18/24 22:00 04/20/24 21:03 40 MG Amlodipine Besylate 10 mg DAILY PO 04/18/24 10:00 04/21/24 08:44 10 MG Valsartan 320 mg DAILY PO 04/18/24 10:00 04/21/24 08:44 240 MG Insulin Glargine 30 units QAM SC 04/19/24 07:00 04/19/24 07:01 30 UNITS Insulin Human Lispro 7 units TID SC 04/18/24 14:15 04/20/24 21:19 7 UNITS Enoxaparin Sodium 40 mg DAILY SC 04/19/24 10:00 04/21/24 08:42 40 MG Sodium Chloride 10 ml QSHIFT@10,22 IV 04/18/24 22:00 04/21/24 08:45 10 ML Diagnostic Test (Pha) 1 strip ACHS 04/18/24 17:00 04/21/24 10:44 1 STRIP Insulin Human Regular HS SC 04/18/24 22:00 04/20/24 21:15 6 UNITS Insulin Human Regular AC SC 04/18/24 17:00 04/21/24 10:44 3 UNITS Dextrose 50 ml UD PRN IV 04/18/24 16:00 Vancomycin HCl 200 ml @ 200 mls/hr Q12H IV 04/19/24 12:00 04/21/24 11:00 200 MLS/HR Ertapenem 1 gm/ Sodium Chloride 50 ml @ 100 mls/hr DAILY IV 04/21/24 10:00 Examination: LUNGS:Normal, CVS:Normal, SKIN:Abnormal (Left 5th toe ulcer), NEURO:Normal laboratory and microbiology Laboratory Tests 04/21/24 05:12 Test 04/21/24 05:12 Range/Units Serum Glucose 127 H 74-106 mg/dL Problem List/Assessment/Plan Problem List/Assessment/Plan Peripheral arterial disease, moderate to severe Diabetic ulcer with left 5th toe osteomyelitis Recent left 2nd toe amputation, 3 mos ago Insulin-dependent diabetes mellitus, HgbA1c 8.5% Hypertension Dyslipidemia Morbid obesity Plan/Recommendation (Dr. Pearson) The patient with peripheral arterial disease of the lower extremities and associated osteomyelitis will undergo a peripheral angiogram on 04/22/2024. Continue single-antiplatelet therapy and lipid lowering agent. Denies claudication at this time, hold cilostazol. Continue tight glycemic control and aggressive ABX therapy. Strongly counseled on diet, exercise, and weight loss. Thank you for allowing us to participate in this patient's care. Please call if you have any questions or concerns. This medical document was created using an electronic medical record system with voice recognition software and computerized dictation system. Although this document has been carefully reviewed, there might still be some phonetic and typographical errors. Occasional wrong-word or ``sound-alike substitutions may have occurred due to the inherent limitations of voice recognition software. These areas are purely typographical due to imperfections of the software programs and do not reflect any compromise in the patient's medical care. Please read the chart carefully and recognize, using context, where these substitutions have occurred. Plan discussed with: Patient, Other Date of Service: Apr 21, 2024 Billing Provider: MARIANNA PEARSON MD Cardiology Common Codes: [id number] [facility] Gomez [facility] Apr 21, 2024 13:02
[2024-04-21] MEDS: FUROSEMIDE 20 MG/2 ML VIAL IV ONE (16:15)
--- NOTE | 2024-04-21 16:22 | DVHPNRES ---
Progress Note Date Seen: Apr 21, 2024 Resident Creating Document: DANGELO VILLARREAL RESIDENT Medical Necessity Reason Pt with a Central, PICC or Fol: No Subjective Review of Systems Jaiden William is a 68-year-old Welsh-speaking male patient who presents to the ED with chief complaint of nonhealing left toe wound, associated with drainage of foul-smelling fluid and paresthesia. Patient reports follow up as outpatient with provider that indicated p.o. antibiotic, but symptoms did not improve, prompting his visit to the ED. during his stay in the ED, patient underwent foot CT which revealed 5th proximal middle phalanx osteomyelitis. Denies fever, chills, palpitation, syncope, chest pain, dyspnea, abdominal pain, nausea, vomiting, diarrhea, constipation, dysuria, bleeding, recent travel, sick contacts and other motor or sensory deficits. 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 Denies current tobacco, alcohol and other drug abuse. Allergies: Denies Home medication: Patient does not recall, no records in EMR. Patient seen and examined at bedside. Reports improvement in left foot pain, has no other complaints. Planning on completing peripheral angiography on 04/22/2024 Objective vital signs Vital Sign Date Time Temp Pulse Resp B/P (MAP) Pulse Ox O2 Delivery O2 Flow Rate FiO2 04/21/24 12:57 97.6 67 21 110/59 (76) 95 97.6 04/21/24 08:00 Nasal Cannula* 1 24 Total Intake and Output 04/20/24 04/20/24 04/21/24 15:00 23:00 07:00 Intake Total 900 ml 1000 ml Output Total 780 ml 1250 ml Balance 120 ml -250 ml medications Current Medications Medications Dose Ordered Sig/Debi Route Start Time Stop Time Status Last Admin Dose Admin Vancomycin HCl 0 ml @ 0 mls/hr UD IV 04/17/24 13:30 Sodium Chloride 1,000 ml @ 60 mls/hr [id number] IV 04/17/24 13:30 04/21/24 10:00 60 MLS/HR Acetaminophen/ Hydrocodone Bitart 1 tab Q4HP PRN PO 04/17/24 13:30 Ondansetron HCl 4 mg Q4HP PRN IV 04/17/24 13:30 Docusate Sodium 100 mg BIDPRN PRN PO 04/17/24 13:30 Zinc Sulfate 220 mg DAILY PO 04/18/24 10:00 04/21/24 08:42 220 MG Ascorbic Acid 500 mg BID PO 04/17/24 22:00 04/21/24 08:45 500 MG Multivitamins 1 tab DAILY PO 04/18/24 10:00 04/21/24 08:42 1 TAB Acetaminophen 650 mg Q6HP PRN PO 04/17/24 13:30 Morphine Sulfate 2 mg Q4HPRN PRN IV 04/17/24 13:30 Aspirin 81 mg DAILY PO 04/18/24 10:00 04/21/24 08:45 81 MG Atorvastatin Calcium 40 mg HS PO 04/18/24 22:00 04/20/24 21:03 40 MG Amlodipine Besylate 10 mg DAILY PO 04/18/24 10:00 04/21/24 08:44 10 MG Valsartan 320 mg DAILY PO 04/18/24 10:00 04/21/24 08:44 240 MG Insulin Glargine 30 units QAM SC 04/19/24 07:00 04/19/24 07:01 30 UNITS Insulin Human Lispro 7 units TID SC 04/18/24 14:15 04/21/24 13:01 7 UNITS Enoxaparin Sodium 40 mg DAILY SC 04/19/24 10:00 04/21/24 08:42 40 MG Sodium Chloride 10 ml QSHIFT@10,22 IV 04/18/24 22:00 04/21/24 08:45 10 ML Diagnostic Test (Pha) 1 strip ACHS 04/18/24 17:00 04/21/24 10:44 1 STRIP Insulin Human Regular HS SC 04/18/24 22:00 04/20/24 21:15 6 UNITS Insulin Human Regular AC SC 04/18/24 17:00 04/21/24 10:44 3 UNITS Dextrose 50 ml UD PRN IV 04/18/24 16:00 Ertapenem 1 gm/ Sodium Chloride 50 ml @ 100 mls/hr DAILY IV 04/21/24 10:00 Vancomycin HCl 200 ml @ 200 mls/hr Q16H IV 04/22/24 04:00 Examination Patient lying in bed, in no acute distress General: Lucid, afebrile, mucosae are moist Cardiovascular: Normal S1 and S2. No murmurs, gallops or rubs Respiratory: Normal ventilation mechanics. Clear lung sounds on auscultation Abdomen: Soft, nontender, no organomegaly, normal bowel sounds MSK/skin: Mobilizes 4 limbs. Skin is dry and warm. Left foot 2nd toe amputation, with no erythema. Left foot 5th toe with necrotic tissue, erythema, mild purulent discharge. Neurological: Oriented in 3 spheres. No motor no sensitive deficits. Pupils are isocoric and reactive laboratory and microbiology Laboratory Tests 04/21/24 05:12 Test 04/21/24 05:12 Range/Units Serum Glucose 127 H 74-106 mg/dL Microbiology Date/Time Source Procedure Growth Status 04/18/24 11:23 Toe Left (Little) Gram Stain - Final Resulted 04/18/24 11:23 Wound Culture - Preliminary Escherichia coli - ESBL Resulted 04/17/24 11:14 Blood Blood Culture - Preliminary NO GROWTH AFTER 72 HOURS OF INCUBATION. Resulted Problem List/Assessment/Plan Problem List/Assessment/Plan Left diabetic foot complicated by osteomyelitis of 5th left toe Completed foot x-ray and CT which showed 5th proximal and middle phalanx osteomyelitis and soft tissue swelling compatible with cellulitis. Wound culture presents E coli ESBL. Currently under IV antibiotic (Invanz and vancomycin) Podiatry on board: Ordered cardiological clearance Cardiology on board: Planning on completing peripheral angiography on 04/22/2024 Peripheral arterial disease, moderate to severe Completed lower limb duplex ultrasound which showed monophasic Doppler signals on left lower limb. Cardiology on board: Planning on completing peripheral angiography on 04/22/2024 Currently on aspirin and statins. Hold cilostazol Acute respiratory failure Requires oxygen therapy (nasal cannula 2 liters/minute) Indicated IV diuretics Acute on chronic congestive heart failure (pending echocardiogram) Patient presented fluid overload after IV fluids were administered. Quartered echocardiogram Currently on furosemide IV 20 mg daily Insulin-dependent diabetes mellitus -Uncontrolled (HgbA1c 8.5%) Currently on insulin sliding scale Lantus 30 units and lispro 7 units t.i.d. History of recent left 2nd toe amputation Completed amputation three months before his admission Hypertension Continue with home medication Dyslipidemia Currently on atorvastatin Morbid obesity Gave her advice on healthy lifestyle habits Goals of care discussed with the patient for over 18 minutes: Full code status Discussed plan with Dr. Tamez, patient and nurses: Planning on completing peripheral angiography eventual PCI on 04/22/2024. After revascularization, Podiatry we will complete surgical procedure for osteomyelitis secondary to E coli ESBL, continue with adjusted IV antibiotic. Ordered echocardiogram due to acute respiratory failure after IV fluids. Plan discussed with: Patient, Other (Nurses) My Orders My Orders Orders - DANGELO VILLARREAL Procedure Category Date Status Time Chest Xray 1 View XY 04/21/24 Resulted 08:10 Date of Service: Apr 21, 2024 Billing Provider: FERNANDO TAMEZ MD Common Visit Codes: [id number] INP/OBS CARE(HIGH) DANGELO VILLARREAL RESIDENT Apr 21, 2024 16:22 FERNANDO TAMEZ MD Apr 21, 2024 23:09
[2024-04-21] MEDS: ERTAPENEM SOD INJ 1 GM in SODIUM CHL 0.9% 50 ML IV SCH (16:52)
[2024-04-22] VITALS (7 sets, daily range): BP systolic 112–145; BP diastolic 44–68; PULSE 61–72; RESP 16–20; TEMP 97.5–98.3; O2SAT 88–92
[2024-04-22] MEDS: VANCOMYCIN 1GM/250ML KIT 200 ML IV SCH (04:57)
[2024-04-22 06:53] LABS: Basophils # (auto) 0.1 10 ^3/uL (0-0.2); Basophils % (auto) 0.6 % (0.0-2.0); Eosinophils # (auto) 0.4 10 ^3/uL (0-0.8); Eosinophils % (auto) 4.7 % (0.0-7.0); Hematocrit 44.6 % (41.0-53.0); Hemoglobin 15.1 g/dL (13.5-17.5); Lymphocytes # (auto) 2.4 10 ^3/uL (0.4-5.4); Lymphocytes % (auto) 25.4 % (10.0-50.0); Mean Corpuscular Hemoglobin 29.1 pg (28.0-32.0); Mean Corpuscular Hgb Conc. 33.9 g/dL (32.0-36.0); Mean Corpuscular Volume 85.8 fL (80.0-100.0); Monocytes # (auto) 0.9 10 ^3/uL (0-1.3); Monocytes % (auto) 8.9 % (0.0-12.0); Neutrophils # (auto) 5.8 10 ^3/uL (1.6-8.6); Neutrophils % (auto) 60.4 % (37.0-80.0); Nucleated Red Blood Cells % 0.1 %; Platelet Count (auto) 229 10^3/uL (140-450); Red Cell Distribution Width 13.4 % (11.8-14.3); White Blood Cell 9.6 10^3/uL (4.4-10.8)
[2024-04-22 07:08] LABS: Anion Gap 7 (5-15); Carbon Dioxide 30 mmol/L (20-31); Chloride 104 mmol/L (98-107); Potassium 3.7 mmol/L (3.5-5.1); Sodium 141 mmol/L (136-145)
[2024-04-22 07:09] LABS: Calcium 9.8 mg/dL (8.7-10.4)
[2024-04-22 07:15] LABS: BUN/Creatinine Ratio 13.8 (10.0-20.0); Blood Urea Nitrogen 16 mg/dL (9-23)
[2024-04-22 07:23] LABS: Glucose 114 mg/dL (74-106)
[2024-04-22 07:34] LABS: INR 1.08 (0.9-1.15); Partial Thromboplastin Time 28.5 SEC (24.5-34.5); Prothrombin Time 11.4 sec (9.3-11.8)
--- NOTE | 2024-04-22 11:27 | DVHSR ---
APPROVED REPORT EXAM: LIMITED Two-dimensional and M-mode echocardiogram with Doppler and color Doppler. Blood Pressure: 110/59 mmHg INDICATION CHF RISK FACTORS Obesity: Height: 5'3", Weight: 236 DIMENSIONS LVDd4.5 (3.8-5.7cm)LA (2D) (1.9-4.0cm)Aortic Root3.5 (2.0-3.7cm) LVDs3.3 (2.5-4.0cm)LA (MM) (1.9-4.0cm)Aortic Cusp Exc2.0 (1.5-2.0cm) EF (%) 55.0 (55-70%)Rt. Atrium (1.9-4.0cm)Asc. Aorta cm IVSd1.2 (0.7-1.1cm)RV (D) (1.8-2.4cm) PWd1.3 (0.7-1.1cm) Mitral Valve MitralMitral Stenosis E/A ratio0.02D MVAcm2 Aortic Valve Aortic ValveAortic Stenosis LVOT Diameter2.3 (1.8-2.4cm)Doppler AVAcm2 Pulmonic Valve V20.87m/s Other Information Quality : Technically LimitedRhythm : Technically limited study due to body habitus. Conclusion Well-preserved left ventricular systolic function estimated ejection fraction 55%. There is a grade 1 diastolic dysfunction. Normal right ventricular size and dimension. Normal right ventricular systolic function. Normal biatrial size and dimension. The aortic valve is mildly thickened and sclerotic no significant stenosis or regurgitation. There is mild mitral valve regurgitation. There is a trace tricuspid valve regurgitation. The pulmonary valve is grossly normal. No pericardial effusion.
[2024-04-22] MEDS: FUROSEMIDE 20 MG/2 ML VIAL IV SCH (11:33)
--- NOTE | 2024-04-22 14:24 | DVHPNRES ---
Progress Note Date Seen: Apr 22, 2024 Resident Creating Document: VESTA COLON RESIDENT Medical Necessity Reason Pt with a Central, PICC or Fol: No Subjective Review of Systems Majo BERMUDEZ a 68-year-old Prydein[place]-speaking male with a PMH of type 2 DM, HTN, HLD, 2nd left toe amputation presented to the ED for the evaluation chronic left 5th toe wound. Patient seen and examined at the bedside. Patient reported improvement in pain since admission. Wound cultures growing ESBL, currently on Invanz And vancomycin. Cardiology consult evaluated the patient and advised to do peripheral angiogram today. Continue tight glycemic control and aggressive ABX therapy. Patient reports: No new complaints, Feels better Objective vital signs Vital Sign Date Time Temp Pulse Resp B/P (MAP) Pulse Ox O2 Delivery O2 Flow Rate FiO2 04/22/24 12:56 97.7 65 16 145/68 (93) 92 97.7 04/21/24 20:20 Nasal Cannula* 1 24 Total Intake and Output 04/21/24 04/21/24 04/22/24 15:00 23:00 07:00 Intake Total 500 ml 50 ml 500 ml Output Total 700 ml 600 ml Balance 500 ml -650 ml -100 ml medications Current Medications Medications Dose Ordered Sig/Debi Route Start Time Stop Time Status Last Admin Dose Admin Vancomycin HCl 0 ml @ 0 mls/hr UD IV 04/17/24 13:30 Acetaminophen/ Hydrocodone Bitart 1 tab Q4HP PRN PO 04/17/24 13:30 Ondansetron HCl 4 mg Q4HP PRN IV 04/17/24 13:30 Docusate Sodium 100 mg BIDPRN PRN PO 04/17/24 13:30 Zinc Sulfate 220 mg DAILY PO 04/18/24 10:00 04/22/24 11:32 220 MG Ascorbic Acid 500 mg BID PO 04/17/24 22:00 04/22/24 11:32 500 MG Multivitamins 1 tab DAILY PO 04/18/24 10:00 04/22/24 11:32 1 TAB Acetaminophen 650 mg Q6HP PRN PO 04/17/24 13:30 Morphine Sulfate 2 mg Q4HPRN PRN IV 04/17/24 13:30 Aspirin 81 mg DAILY PO 04/18/24 10:00 04/22/24 11:32 81 MG Atorvastatin Calcium 40 mg HS PO 04/18/24 22:00 04/21/24 21:42 40 MG Amlodipine Besylate 10 mg DAILY PO 04/18/24 10:00 04/22/24 10:00 10 MG Valsartan 320 mg DAILY PO 04/18/24 10:00 04/21/24 08:44 240 MG Insulin Glargine 30 units QAM SC 04/19/24 07:00 04/19/24 07:01 30 UNITS Insulin Human Lispro 7 units TID SC 04/18/24 14:15 04/21/24 22:10 7 UNITS Enoxaparin Sodium 40 mg DAILY SC 04/19/24 10:00 04/22/24 11:32 40 MG Sodium Chloride 10 ml QSHIFT@10,22 IV 04/18/24 22:00 04/22/24 11:33 10 ML Diagnostic Test (Pha) 1 strip ACHS 04/18/24 17:00 04/22/24 11:34 1 STRIP Insulin Human Regular HS SC 04/18/24 22:00 04/21/24 22:03 8 UNITS Insulin Human Regular AC SC 04/18/24 17:00 04/22/24 11:51 2 UNITS Dextrose 50 ml UD PRN IV 04/18/24 16:00 Ertapenem 1 gm/ Sodium Chloride 50 ml @ 100 mls/hr DAILY IV 04/21/24 10:00 04/22/24 12:05 100 MLS/HR Vancomycin HCl 200 ml @ 200 mls/hr Q16H IV 04/22/24 04:00 04/22/24 04:57 200 MLS/HR Furosemide 20 mg DAILY IV 04/22/24 10:00 04/22/24 11:33 20 MG Examination Pt is lying on bed General Appearance: Alert, Oriented X3, Cooperative, Not in acute distress HEENT: Atraumatic, Mucous membranes moist/pink Respiratory: Clear to auscultation, Normal air movement, No added sounds Cardiovascular: Regular rate, Normal S1, Normal S2, No murmurs Abdominal: Active bowel sounds, Soft, no distention, no tenderness Extremities: partial amputation of left 2nd toe, dorsal ulceration on left 5th toe and swelling. Trace edema, Normal pulses, Skin: dorsal ulceration on left 5th toe and swelling Neuro: Normal speech, sensorimotor deficits none Psych/Mental Status: Mental status NL, Mood NL Nurse was there as sharperone during examination laboratory and microbiology Laboratory Tests 04/22/24 06:00 Test 04/22/24 06:00 Range/Units Serum Glucose 114 H 74-106 mg/dL Microbiology Date/Time Source Procedure Growth Status 04/18/24 11:23 Toe Left (Little) Gram Stain - Final Resulted 04/18/24 11:23 Wound Culture - Preliminary Escherichia coli - ESBL Resulted 04/17/24 11:14 Blood Blood Culture - Final NO GROWTH AFTER 5 DAYS OF INCUBATION. Complete Labs and/or images reviewed: Labs reviewed by me, Image(s) reviewed by me Problem List/Assessment/Plan Problem List/Assessment/Plan # Osteomyelitis 5th left toe. # chronic nonhealing diabetic ulcer 5th left toe with possible cellulitis # Peripheral vascular disease moderate to severe -continuously monitor -Left lower extremity food CT and x-ray showed 5th proximal and middle phalanx osteomyelitis and Soft tissue swelling compatible with cellulitis. -Ordered wound cultures, showing g negative rods ESBL -Currently on Invanz and vancomycin -Podiatric business operations consultant evaluated the patient, advised amputation of the 5th left toe at MPJ with possible metatarsal head resection as deem necessary and recommend angiogram/plasty LLE. -Cardiology consult, advised that she will undergo a peripheral angiogram on today. - In the meantime, continue single-antiplatelet therapy and lipid lowering agent. Denies claudication at this time, hold cilostazol. Continue tight glycemic control and aggressive ABX therapy. - started aspirin and Lipitor - ECHO showed left ventricular systolic function estimated ejection fraction 55%. There is a grade 1 diastolic dysfunction # Acute respiratory failure likely hypoxic -Requires oxygen therapy (nasal cannula 2 liters/minute) -Indicated IV diuretics # uncontrolled type 2 DM with HbA1c 8.5 - currently on ISS - Lantus 30 units and lispro 7 units t.i.d. # uncontrolled hypertension - continuously monitor - resume home meds # HLD - currently on Lipitor # morbid obesity with a BMI 42.8 - counseled on lifestyle modifications including diet and exercise # S/P amputation 2nd left toe with intact sutures. Lovenox for now No GI PPX cardiac and diabetic diet Reconciled home meds Goals of care discussed with the patient and familyfor more than 27 minutes: Full code status Case management discussed with Dr. Hinds, patient , family and nurse Plan discussed with: Patient Date of Service: Apr 22, 2024 Billing Provider: LILLIAN HINDS MD Common Visit Codes: [id number] INP/OBS CARE(HIGH) ISAIAHGLENDYKALA RESIDENT Apr 22, 2024 14:24 LILLIAN HINDS MD Apr 27, 2024 18:04
--- NOTE | 2024-04-22 15:05 | DVHPN2 ---
Consult Progress Note Objective vital signs Vital Sign Date Time Temp Pulse Resp B/P (MAP) Pulse Ox O2 Delivery O2 Flow Rate FiO2 04/22/24 12:56 97.7 65 16 145/68 (93) 92 97.7 04/21/24 20:20 Nasal Cannula* 1 24 Total Intake and Output 04/21/24 04/21/24 04/22/24 15:00 23:00 07:00 Intake Total 500 ml 50 ml 500 ml Output Total 700 ml 600 ml Balance 500 ml -650 ml -100 ml medications Current Medications Medications Dose Ordered Sig/Debi Route Start Time Stop Time Status Last Admin Dose Admin Vancomycin HCl 0 ml @ 0 mls/hr UD IV 04/17/24 13:30 Acetaminophen/ Hydrocodone Bitart 1 tab Q4HP PRN PO 04/17/24 13:30 Ondansetron HCl 4 mg Q4HP PRN IV 04/17/24 13:30 Docusate Sodium 100 mg BIDPRN PRN PO 04/17/24 13:30 Zinc Sulfate 220 mg DAILY PO 04/18/24 10:00 04/22/24 11:32 220 MG Ascorbic Acid 500 mg BID PO 04/17/24 22:00 04/22/24 11:32 500 MG Multivitamins 1 tab DAILY PO 04/18/24 10:00 04/22/24 11:32 1 TAB Acetaminophen 650 mg Q6HP PRN PO 04/17/24 13:30 Morphine Sulfate 2 mg Q4HPRN PRN IV 04/17/24 13:30 Aspirin 81 mg DAILY PO 04/18/24 10:00 04/22/24 11:32 81 MG Atorvastatin Calcium 40 mg HS PO 04/18/24 22:00 04/21/24 21:42 40 MG Amlodipine Besylate 10 mg DAILY PO 04/18/24 10:00 04/22/24 10:00 10 MG Valsartan 320 mg DAILY PO 04/18/24 10:00 04/21/24 08:44 240 MG Insulin Glargine 30 units QAM SC 04/19/24 07:00 04/19/24 07:01 30 UNITS Insulin Human Lispro 7 units TID SC 04/18/24 14:15 04/22/24 14:29 7 UNITS Enoxaparin Sodium 40 mg DAILY SC 04/19/24 10:00 04/22/24 11:32 40 MG Sodium Chloride 10 ml QSHIFT@10,22 IV 04/18/24 22:00 04/22/24 11:33 10 ML Diagnostic Test (Pha) 1 strip ACHS 04/18/24 17:00 04/22/24 11:34 1 STRIP Insulin Human Regular HS SC 04/18/24 22:00 04/21/24 22:03 8 UNITS Insulin Human Regular AC SC 04/18/24 17:00 04/22/24 11:51 2 UNITS Dextrose 50 ml UD PRN IV 04/18/24 16:00 Ertapenem 1 gm/ Sodium Chloride 50 ml @ 100 mls/hr DAILY IV 04/21/24 10:00 04/22/24 12:05 100 MLS/HR Vancomycin HCl 200 ml @ 200 mls/hr Q16H IV 04/22/24 04:00 04/22/24 04:57 200 MLS/HR Furosemide 20 mg DAILY IV 04/22/24 10:00 04/22/24 11:33 20 MG Examination: GENERAL:Normal, LUNGS:Normal, CVS:Normal, NEURO:Normal laboratory and microbiology Laboratory Tests 04/22/24 06:00 Test 04/22/24 06:00 Range/Units Serum Glucose 114 H 74-106 mg/dL Problem List/Assessment/Plan Problem List/Assessment/Plan Peripheral arterial disease, moderate to severe Diabetic ulcer with left 5th toe osteomyelitis Recent left 2nd toe amputation, 3 months ago Insulin-dependent diabetes mellitus, uncontrolled (HgbA1c 8.5%) Hypertension Dyslipidemia Morbid obesity Plan/Recommendation (Dr. Pearson) Patient seen and examined at bedside with Dr. Pearson. The patient with peripheral arterial disease of the lower extremities and associated osteomyelitis will undergo a peripheral angiogram on 04/23/2024. Continue single-antiplatelet therapy and lipid lowering agent. Denies claudication at this time, hold cilostazol. Continue tight glycemic control and aggressive ABX therapy. Strongly counseled on diet, exercise, and weight loss. Thank you for allowing us to participate in this patient's care. Please call if you have any questions or concerns. This medical document was created using an electronic medical record system with voice recognition software and computerized dictation system. Although this document has been carefully reviewed, there might still be some phonetic and typographical errors. Occasional wrong-word or ``sound-alike substitutions may have occurred due to the inherent limitations of voice recognition software. These areas are purely typographical due to imperfections of the software programs and do not reflect any compromise in the patient's medical care. Please read the chart carefully and recognize, using context, where these substitutions have occurred. Plan discussed with: Patient Date of Service: Apr 22, 2024 Billing Provider: MARIANNA PEARSON MD Common Visit Codes: [id number] INP/OBS CARE(HIGH) ADE GAR SCALE TECHNICIAN Apr 22, 2024 15:05
[2024-04-23] VITALS (9 sets, daily range): BP systolic 119–144; BP diastolic 65–82; PULSE 60–73; RESP 14–20; TEMP 97.9–98.4; O2SAT 93–98
[2024-04-23 06:27] LABS: Urine Bacteria None Seen /hpf (None Seen)
[2024-04-23 06:38] LABS: Urine Blood Negative /uL (Negative); Urine Clarity Clear (Clear); Urine Color Yellow (Yellow); Urine Hyaline Cast FEW /lpf (0 - 2); Urine Mucus FEW (None Seen); Urine Protein, UAD 2+ (Negative); Urine Specific Gravity 1.022 (1.001-1.035); Urine Urobilinogen Normal (Negative); Urine WBC 4 /hpf (0 - 3)
[2024-04-23 06:55] LABS: Basophils # (auto) 0 10 ^3/uL (0-0.2); Basophils % (auto) 0.6 % (0.0-2.0); Eosinophils # (auto) 0.5 10 ^3/uL (0-0.8); Eosinophils % (auto) 5.5 % (0.0-7.0); Hemoglobin 16.1 g/dL (13.5-17.5); Lymphocytes # (auto) 2.4 10 ^3/uL (0.4-5.4); Lymphocytes % (auto) 26.8 % (10.0-50.0); Mean Corpuscular Hemoglobin 29.4 pg (28.0-32.0); Mean Corpuscular Hgb Conc. 34.3 g/dL (32.0-36.0); Mean Corpuscular Volume 85.7 fL (80.0-100.0); Monocytes # (auto) 0.7 10 ^3/uL (0-1.3); Monocytes % (auto) 8.5 % (0.0-12.0); Neutrophils # (auto) 5.2 10 ^3/uL (1.6-8.6); Neutrophils % (auto) 58.6 % (37.0-80.0); Nucleated Red Blood Cells % 0.2 %; Platelet Count (auto) 226 10^3/uL (140-450); Red Blood Cells 5.48 10^6/uL (4.5-5.90); Red Cell Distribution Width 13.6 % (11.8-14.3); White Blood Cell 8.8 10^3/uL (4.4-10.8)
[2024-04-23 07:20] LABS: Amphetamine Screen, Urine Neg (NEGATIVE)
[2024-04-23 07:21] LABS: Benzodiazephine Screen, Urine Neg (NEGATIVE)
[2024-04-23 07:22] LABS: Barbiturate Scree,Urine Neg (NEGATIVE); Cocaine Screen, Urine Neg (NEGATIVE); Opiate Scree,Urine Neg (NEGATIVE); Phencyclidine Screen, Urine Neg (NEGATIVE)
[2024-04-23 07:23] LABS: Cannabinoid Screen, Urine Neg (NEGATIVE)
[2024-04-23 07:23] LABS: Alanine Aminotransferase 24 U/L (7-40); Alkaline Phosphatase 102 U/L (46-116); Anion Gap 11 (5-15); BUN/Creatinine Ratio 18.3 (10.0-20.0); Blood Urea Nitrogen 22 mg/dL (9-23); Calcium 9.8 mg/dL (8.7-10.4); Carbon Dioxide 27 mmol/L (20-31); Chloride 102 mmol/L (98-107); Glucose 124 mg/dL (74-106); Potassium 3.6 mmol/L (3.5-5.1); Sodium 140 mmol/L (136-145)
[2024-04-23 07:24] LABS: Albumin 4.2 g/dL (3.2-4.8)
[2024-04-23 07:25] LABS: Aspartate Aminotransferase 20 U/L (13-40); Bilirubin, Total 0.6 mg/dL (0.2-1.0); Total Protein 7.2 g/dL (5.7-8.2)
--- NOTE | 2024-04-23 12:04 | DVHPN2 ---
Progress Note - Dictate Date Seen: Apr 23, 2024 Medical Necessity Reason Pt with a Central, PICC or Fol: No Subjective The patient was seen at bed side with his nurse as well as another Israeli speaking nurse. The patient has no new complaints. The patient will be undergoing an angiogram/plasty LLE today. vital signs Vital Sign Date Time Temp Pulse Resp B/P (MAP) Pulse Ox O2 Delivery O2 Flow Rate FiO2 04/23/24 10:09 129/72 04/23/24 09:00 97.9 64 16 96 97.9 04/22/24 20:00 Nasal Cannula* 2 28 Total Intake and Output 04/22/24 04/22/24 04/23/24 15:00 23:00 07:00 Intake Total 600 ml 500 ml Output Total 902 ml Balance 600 ml -402 ml medications Current Medications Medications Dose Ordered Sig/Debi Route Start Time Stop Time Status Last Admin Dose Admin Vancomycin HCl 0 ml @ 0 mls/hr UD IV 04/17/24 13:30 Acetaminophen/ Hydrocodone Bitart 1 tab Q4HP PRN PO 04/17/24 13:30 Ondansetron HCl 4 mg Q4HP PRN IV 04/17/24 13:30 Docusate Sodium 100 mg BIDPRN PRN PO 04/17/24 13:30 Zinc Sulfate 220 mg DAILY PO 04/18/24 10:00 04/23/24 10:09 220 MG Ascorbic Acid 500 mg BID PO 04/17/24 22:00 04/23/24 10:09 500 MG Multivitamins 1 tab DAILY PO 04/18/24 10:00 04/23/24 10:09 1 TAB Acetaminophen 650 mg Q6HP PRN PO 04/17/24 13:30 Morphine Sulfate 2 mg Q4HPRN PRN IV 04/17/24 13:30 Aspirin 81 mg DAILY PO 04/18/24 10:00 04/23/24 10:09 81 MG Atorvastatin Calcium 40 mg HS PO 04/18/24 22:00 04/22/24 21:45 40 MG Amlodipine Besylate 10 mg DAILY PO 04/18/24 10:00 04/23/24 10:09 10 MG Valsartan 320 mg DAILY PO 04/18/24 10:00 04/22/24 17:15 320 MG Insulin Glargine 30 units QAM SC 04/19/24 07:00 04/19/24 07:01 30 UNITS Insulin Human Lispro 7 units TID SC 04/18/24 14:15 04/23/24 06:25 7 UNITS Enoxaparin Sodium 40 mg DAILY SC 04/19/24 10:00 04/22/24 11:32 40 MG Sodium Chloride 10 ml QSHIFT@10,22 IV 04/18/24 22:00 04/23/24 10:10 10 ML Diagnostic Test (Pha) 1 strip ACHS 04/18/24 17:00 04/23/24 06:25 1 STRIP Insulin Human Regular HS SC 04/18/24 22:00 04/22/24 22:00 3 UNITS Insulin Human Regular AC SC 04/18/24 17:00 04/23/24 06:31 2 UNITS Dextrose 50 ml UD PRN IV 04/18/24 16:00 Ertapenem 1 gm/ Sodium Chloride 50 ml @ 100 mls/hr DAILY IV 04/21/24 10:00 04/23/24 10:09 100 MLS/HR Vancomycin HCl 200 ml @ 200 mls/hr Q16H IV 04/22/24 04:00 04/22/24 19:58 200 MLS/HR Furosemide 20 mg DAILY IV 04/22/24 10:00 04/23/24 10:09 20 MG objective exposed bone 5th left toe with necrosis cellulitis is noted to the 5th left toe. No ascending cellulitis is noted. Dp/PT +1/4 bilaterally, CFT 3 seconds bilaterally. No focal deficit is noted. laboratory and microbiology Laboratory Tests 04/23/24 05:17 Test 04/23/24 05:17 Range/Units Serum Glucose 124 H 74-106 mg/dL Assessment/Plan Primary Diagnosis: Osteomyelitis 5th left toe. Necrotic 5th left toe. S/P amputation 2nd left toe with intact sutures. Secondary Diagnosis: DM II HTN Hyperlipidemia. Discussed treatment options with the patient ranging from conservative treatment to surgical intervention including amputation. Pros and cons, risks and benefits fully discussed. The patient opted for amputation of the 5th left toe with possible metatarsal head resection. All questions and concerns were answered to the patient's satisfaction. NPO after midnight tonight. Consent the patient. Picc line is pending. Plan discussed with: Patient CIPRIANO HORNER DPM Apr 23, 2024 12:04
--- NOTE | 2024-04-23 15:01 | DVHPNRES ---
Progress Note Date Seen: Apr 23, 2024 Resident Creating Document: VESTA COLON RESIDENT Medical Necessity Reason Pt with a Central, PICC or Fol: No Subjective Review of Systems Majo BERMUDEZ a 68-year-old [place]an-speaking male with a PMH of type 2 DM, HTN, HLD, 2nd left toe amputation presented to the ED for the evaluation chronic left 5th toe wound. Patient seen and examined at the bedside. Patient reported improvement in pain since admission. Wound cultures growing ESBL& Enterococcus faecalis, currently on Invanz And vancomycin. Cardiology consult evaluated the patient and advised to do peripheral angiogram today. Continue tight glycemic control and aggressive ABX therapy. Left 5th toe amputation likely tomorrow Objective vital signs Vital Sign Date Time Temp Pulse Resp B/P (MAP) Pulse Ox O2 Delivery O2 Flow Rate FiO2 04/23/24 13:00 98.3 64 17 121/82 (95) 97 98.3 04/22/24 20:00 Nasal Cannula* 2 28 Total Intake and Output 04/22/24 04/22/24 04/23/24 14:59 22:59 06:59 Intake Total 600 ml 500 ml Output Total 902 ml Balance 600 ml -402 ml medications Current Medications Medications Dose Ordered Sig/Debi Route Start Time Stop Time Status Last Admin Dose Admin Vancomycin HCl 0 ml @ 0 mls/hr UD IV 04/17/24 13:30 Acetaminophen/ Hydrocodone Bitart 1 tab Q4HP PRN PO 04/17/24 13:30 Ondansetron HCl 4 mg Q4HP PRN IV 04/17/24 13:30 Docusate Sodium 100 mg BIDPRN PRN PO 04/17/24 13:30 Zinc Sulfate 220 mg DAILY PO 04/18/24 10:00 04/23/24 10:09 220 MG Ascorbic Acid 500 mg BID PO 04/17/24 22:00 04/23/24 10:09 500 MG Multivitamins 1 tab DAILY PO 04/18/24 10:00 04/23/24 10:09 1 TAB Acetaminophen 650 mg Q6HP PRN PO 04/17/24 13:30 Morphine Sulfate 2 mg Q4HPRN PRN IV 04/17/24 13:30 Aspirin 81 mg DAILY PO 04/18/24 10:00 04/23/24 10:09 81 MG Atorvastatin Calcium 40 mg HS PO 04/18/24 22:00 12/2/24 21:45 40 MG Amlodipine Besylate 10 mg DAILY PO 04/18/24 10:00 04/23/24 10:09 10 MG Valsartan 320 mg DAILY PO 04/18/24 10:00 04/22/24 17:15 320 MG Insulin Glargine 30 units QAM SC 04/19/24 07:00 04/19/24 07:01 30 UNITS Insulin Human Lispro 7 units TID SC 04/18/24 14:15 04/23/24 06:25 7 UNITS Enoxaparin Sodium 40 mg DAILY SC 04/19/24 10:00 04/22/24 11:32 40 MG Sodium Chloride 10 ml QSHIFT@10,22 IV 04/18/24 22:00 04/23/24 10:10 10 ML Diagnostic Test (Pha) 1 strip ACHS 04/18/24 17:00 04/23/24 11:30 1 STRIP Insulin Human Regular HS SC 04/18/24 22:00 04/22/24 22:00 3 UNITS Insulin Human Regular AC SC 04/18/24 17:00 04/23/24 06:31 2 UNITS Dextrose 50 ml UD PRN IV 04/18/24 16:00 Ertapenem 1 gm/ Sodium Chloride 50 ml @ 100 mls/hr DAILY IV 04/21/24 10:00 04/23/24 10:09 100 MLS/HR Furosemide 20 mg DAILY IV 04/22/24 10:00 04/23/24 10:09 20 MG Vancomycin HCl 250 ml @ 250 mls/hr Q16H IV 04/24/24 03:00 Examination Pt is lying on bed General Appearance: Alert, Oriented X3, Cooperative, Not in acute distress HEENT: Atraumatic, Mucous membranes moist/pink Respiratory: Clear to auscultation, Normal air movement, No added sounds Cardiovascular: Regular rate, Normal S1, Normal S2, No murmurs Abdominal: Active bowel sounds, Soft, no distention, no tenderness Extremities: partial amputation of left 2nd toe, dorsal ulceration on left 5th toe and swelling. Trace edema, Normal pulses, Skin: dorsal ulceration on left 5th toe and swelling Neuro: Normal speech, sensorimotor deficits none Psych/Mental Status: Mental status NL, Mood NL Nurse was there as sharperone during examination laboratory and microbiology Laboratory Tests 04/23/24 05:17 Test 04/23/24 05:17 Range/Units Serum Glucose 124 H 74-106 mg/dL Microbiology Date/Time Source Procedure Growth Status 04/18/24 11:23 Toe Left (Little) Gram Stain - Final Complete 04/18/24 11:23 Wound Culture - Final Escherichia coli - ESBL Enterococcus faecalis Complete 04/17/24 11:14 Blood Blood Culture - Final NO GROWTH AFTER 5 DAYS OF INCUBATION. Complete Labs and/or images reviewed: Labs reviewed by me, Image(s) reviewed by me Problem List/Assessment/Plan Problem List/Assessment/Plan # Osteomyelitis 5th left toe. # chronic nonhealing diabetic ulcer 5th left toe with possible cellulitis # Peripheral vascular disease moderate to severe -continuously monitor -Left lower extremity food CT and x-ray showed 5th proximal and middle phalanx osteomyelitis and Soft tissue swelling compatible with cellulitis. -Ordered wound cultures, showing g negative rods ESBL& Enterococcus faecalis -Currently on Invanz and vancomycin -Podiatric information technology consultant evaluated the patient, advised amputation of the 5th left toe at MPJ with possible metatarsal head resection Likely tomorrow -Cardiology consult, advised that she will undergo a peripheral angiogram on today. - Continue single-antiplatelet therapy and lipid lowering agent. Denies claudication at this time, hold cilostazol. Continue tight glycemic control and aggressive ABX therapy. - started aspirin and Lipitor - ECHO showed left ventricular systolic function estimated ejection fraction 55%. There is a grade 1 diastolic dysfunction # Acute respiratory failure likely hypoxic -Requires oxygen therapy (nasal cannula 2 liters/minute) -Indicated IV diuretics # uncontrolled type 2 DM with HbA1c 8.5 - currently on ISS - Lantus 30 units and lispro 7 units t.i.d. # uncontrolled hypertension - continuously monitor - resume home meds # HLD - currently on Lipitor # morbid obesity with a BMI 42.8 - counseled on lifestyle modifications including diet and exercise # S/P amputation 2nd left toe with intact sutures. Lovenox for now No GI PPX cardiac and diabetic diet Reconciled home meds Goals of care discussed with the patient and familyfor more than 27 minutes: Full code status Case management discussed with Dr. Hinds, patient , family and nurse Plan discussed with: Patient My Orders My Orders Orders - VESTA COLON RESIDENT Procedure Category Date Status Time Dietary NOTICE 04/23/24 Transmitted Recommendations 14:35 Dietary Evaluation Review Comments: 1) Consider CLAUDIO 1 pkt BID for wound 2) Advance pt diet when medically feasible to a CCHO 60g diet 3) Continue current plan of care Expected Outcomes/Goals: 1) Pt diet to advance 2) Pt labs to improve 3) F/U in 2-3 days Date of Service: Apr 23, 2024 Billing Provider: LILLIAN HINDS MD Common Visit Codes: [id number] INP/OBS CARE(HIGH) VESTA COLON RESIDENT Apr 23, 2024 15:01 LILLIAN HINDS MD Apr 27, 2024 18:04
[2024-04-23] MEDS: IODIXANOL 320MG/ML 100ML BTL IV ONE (15:54)
[2024-04-23] MEDS: ANGIOMAX 250 MG VIAL IV ONE (15:54)
[2024-04-23] MEDS: SODIUM CHL 0.9% 50 ML ONE (15:54)
[2024-04-23] MEDS: MIDAZOLAM HCL 2MG/2ML 2ml VIAL (1mg/ml) ONE (15:54)
[2024-04-23] MEDS: fentaNYL CITRATE 100 MCG/2 ML VL ONE (15:54)
[2024-04-23] MEDS: LIDOCAINE 2%HCL (LOCAL ANESTH.) INJ 20ML MDV ONE (15:55)
--- NOTE | 2024-04-23 18:18 | DVHOP2 ---
Operative Report - 2 Report Details Date: 04/23/24 Preop Diagnosis: Left leg critical limb ischemia with the current open wounds ulcer difficult to heal. Postop Diagnosis: Peripheral angiography was done via retrograde approach utilizing right femoral arterial access under ultrasound guidance. There was a critical stenosis involving the proximal part of the 1st part of the popliteal artery on the right side. There was a complete occlusion of the anterior tibial artery which reconstitutes distally by the tibioperoneal trunk. Patient underwent successful PTCA to the proximal popliteal artery stenosis using5 x 20 cammy balloon to12 atmospheric pressure with excellent final result. Surgeon: Micky Beasley MD Anesthesiologist: Conscious sedation using25 mcg of fentanyl as well as a mg IV midazolam. Patient was observed for total of35 minutes without obvious complication. Anesthesia: Local Consent: The patient was informed of the risks and benefits of the procedure. These include but are not limited to complications of anesthesia, postoperative infection, incomplete relief of symptoms, recurrence of symptoms, damage to blood vessels, nerves and tendons, deep venous thrombosis, pulmonary embolism and possible need for repeat surgery in the future. Indications for Surgery: This is a 68-year-old male who presented to the emergency room with a chief complaint of wound care. The patient reports he developed a diabetic ulcer to his left 5th toe progressively getting worse draining fluid with foul smell and paresthesia. Reports he has been on oral antibiotics for over a week with no improvement of symptoms. He underwent a food CT revealing 5th proximal and middle phalanx osteomyelitis. The patient also underwent a bilateral arterial duplex revealing [id number] peripheral arterial disease. Significant medical history includes hypertension, dyslipidemia, insulin-dependent diabetes mellitus, and recent left 2nd toe amputation three months ago. Name of Procedure Performed 1. Ultrasound-guided right femoral arterial access. 2. Selective right lower limb peripheral angiography. 3. Successful PTCA to proximal popliteal artery stenosis using5 x 20 cammy s ca compliant balloon. 4. Successful closure of right femoral arterial access using six [place]ger Angio- Seal system. Procedure Details Procedure Details: Procedure note and vascular access: After informed consent was obtained, risks, benefits, complications, and alternatives were discussed in details with the patient who agrees to have the procedure done. At the beginning of the procedure, the right groin area were prepped and draped in the regular sterile fashion as well as the left groin area. An attempted ipsilateral access was done using micropuncture sheath but due to severe pannus puncture site was below the bifurcation of the SFA and profunda artery. For which procedure was omitted and vascular access was switched to the right femoral arterial access. This was done under ultrasound guidance. Six Luxembourger sheath was then placed without difficulty. This was exchanged then after crossover was made with a45 cm destination sheath the detail of the procedure were as follows: 1. Ultrasound-guided right femoral arterial access, six Luxembourger sheath was placed, then a rim catheter was used to engage the bifurcation of the aortoiliac junction, an angled stiff Glidewire was used to cross the aortoiliac bifurcation and it was advanced all the way to the right common femoral artery. 2. The six Luxembourger sheath was exchanged for a45 cm destination sheath with a dilator. And then a cine right femoral angiography was performed findings were as follows: 1. Widely patent common iliac artery on the right side the bifurcates into external iliac and internal iliac artery. 2. The external iliac artery continues as the common femoral artery, it has no significant atherosclerotic plaquing or stenosis. 3. The common femoral artery bifurcates into a large right superficial femoral artery and right profunda artery. 4. The right superficial femoral artery has mild irregularity of the proximal bed but no significant stenosis was noted. 5. The right femoral profunda artery is free of any significant stenosis or diseases. 6. The proximal popliteal artery has focal stenosis at 80% on the right side. 7. The distal popliteal artery bifurcates into a tibioperoneal trunk as well as anterior tibial artery. 8. The right anterior tibial artery is completely occluded in the proximal segment, the vessel is reconstitute distally via the tibioperoneal trunk. 9. The tibioperoneal trunk bifurcates into a posterior tibial artery as well as peroneal artery. 10. The posterior tibial artery continues as the deep plantar arch into the lateral aspect of the foot provides digital branches. 11. The deep peroneal artery is free of any significant diseases. 3. Successful PTCA to the 1st part of the right popliteal artery using5 x 20 cammy semi compliant balloon: With the help of 300 cm 0.14 Wire we were able to cross the popliteal artery to the tibioperoneal trunk. Percutaneous transluminal angioplasty was then performed using a5 x 20 cammy semi compliant balloon with excellent final result. There is a dramatic improvement in the distal runoff flow of the tibioperoneal trunk. Including the collateral to the anterior tibial artery. No attempt was made to open the anterior tibial artery as it reconstitute distally by the tibioperoneal system. 4. Successful closure of the right femoral arteriotomy site using six Luxembourger Angio-Seal, this was done after the destination sheath was retracted over the wire, then a six Luxembourger sheath was placed before Angio-Seal was deployed without difficulty with good hemostasis. 5. Anticoagulation during the procedure was made using continuous IV valve bivalirudin. Impression and plan: 1. Critical limb ischemia secondary to diffuse disease involving the proximal popliteal as well as the distal anterior tibial artery. Patient has successful PTCA to the proximal popliteal artery using5 x 20 cammy balloon. 2. There is complete occlusion of the anterior tibial artery with reconstitution of the vessel distally by the tibioperoneal vessels including the posterior tibial and the right deep peroneal artery. 3. There is improvement in the distal runoff after the popliteal artery stenosis is treated. Hopefully this will provide better distal flow to the distal limb. 4. Patient would need aggressive medical therapy as well as wound care and antibiotic coverage for his infection of the left foot. I would recommend regular follow-up with a job lithographer, and frequent deployment. Condition Good Disposition MICKY BEASLEY MD Apr 23, 2024 18:18
[2024-04-24] VITALS (8 sets, daily range): BP systolic 85–139; BP diastolic 51–74; PULSE 65–73; RESP 16–21; TEMP 97.6–98.3; O2SAT 91–98
[2024-04-24] MEDS: VANCOMYCIN 1GM/250ML KIT 250 ML IV SCH (03:01)
[2024-04-24 03:19] LABS: Basophils # (auto) 0 10 ^3/uL (0-0.2); Basophils % (auto) 0.5 % (0.0-2.0); Eosinophils # (auto) 0.4 10 ^3/uL (0-0.8); Hemoglobin 15.5 g/dL (13.5-17.5); Lymphocytes # (auto) 1.5 10 ^3/uL (0.4-5.4); Lymphocytes % (auto) 16.6 % (10.0-50.0); Mean Corpuscular Hgb Conc. 33.8 g/dL (32.0-36.0); Mean Corpuscular Volume 85.8 fL (80.0-100.0); Monocytes # (auto) 0.9 10 ^3/uL (0-1.3); Monocytes % (auto) 10.2 % (0.0-12.0); Neutrophils # (auto) 5.9 10 ^3/uL (1.6-8.6); Neutrophils % (auto) 67.7 % (37.0-80.0); Platelet Count (auto) 221 10^3/uL (140-450); Red Blood Cells 5.37 10^6/uL (4.5-5.90); Red Cell Distribution Width 13.5 % (11.8-14.3); White Blood Cell 8.8 10^3/uL (4.4-10.8)
[2024-04-24 03:27] LABS: Chloride 101 mmol/L (98-107); Sodium 138 mmol/L (136-145)
[2024-04-24 03:28] LABS: Anion Gap 8 (5-15); Carbon Dioxide 29 mmol/L (20-31)
[2024-04-24 03:29] LABS: Calcium 9.6 mg/dL (8.7-10.4)
[2024-04-24 03:33] LABS: BUN/Creatinine Ratio 20.2 (10.0-20.0); Blood Urea Nitrogen 23 mg/dL (9-23)
[2024-04-24 03:35] LABS: Glucose 183 mg/dL (74-106)
[2024-04-24] MEDS ORDERED: fentaNYL CITRATE 100 MCG/2 ML VL ONE (07:52)
[2024-04-24] MEDS ORDERED: PROPOFOL 10 MG/ML 20 ML IV ONE (07:53)
[2024-04-24] MEDS ORDERED: SODIUM CHLORIDE LOCK 10 ML ONE (07:53)
[2024-04-24] MEDS ORDERED: ONDANSETRON HCL 4 MG/2 ML VIAL ONE (07:53)
[2024-04-24] MEDS ORDERED: LIDOCAINE 1% INJ PF 5ML AMP ONE (07:53)
[2024-04-24] MEDS ORDERED: MIDAZOLAM HCL 2MG/2ML 2ml VIAL (1mg/ml) ONE (07:53)
[2024-04-24] MEDS ORDERED: HYDROmorphone HCL 2 MG/ML VL/or syr IV PRN ×2 (09:30)
[2024-04-24] MEDS ORDERED: MORPHINE SULFATE INJ 2 MG/ml SYRG IV PRN (09:30)
[2024-04-24] MEDS ORDERED: fentaNYL CITRATE 100 MCG/2 ML VL IV PRN (09:30)
--- NOTE | 2024-04-24 09:34 | DVHPNRES ---
Progress Note Date Seen: Apr 24, 2024 Resident Creating Document: VESTA COLON RESIDENT Medical Necessity Reason Pt with a Central, PICC or Fol: No Subjective Review of Systems Majo BERMUDEZ a 68-year-old [place]ymra[place]-speaking male with a PMH of type 2 DM, HTN, HLD, 2nd left toe amputation presented to the ED for the evaluation chronic left 5th toe wound. Patient seen and examined at the bedside. Patient reported improvement in pain since admission. Wound cultures growing ESBL& Enterococcus faecalis, currently on Invanz And vancomycin. Postoperative day 1 Patient has successful PTCA to the proximal popliteal artery using5 x 20 cammy balloon. Continue tight glycemic control and aggressive ABX therapy. Postoperative day 0 S/P Amputation of the 5th left toe at the metatarsophalangeal joint, cultures sent. consulted Infectious Disease for antibiotic selection. Patient reports: No new complaints, Feels better Objective vital signs Vital Sign Date Time Temp Pulse Resp B/P (MAP) Pulse Ox O2 Delivery O2 Flow Rate FiO2 04/24/24 05:02 98.3 70 21 108/65 (79) 95 98.3 04/23/24 20:00 Nasal Cannula* 2 28 Total Intake and Output 04/23/24 04/23/24 04/24/24 15:00 23:00 07:00 Intake Total 0 ml 600 ml Output Total 0 ml 375 ml Balance 0 ml 225 ml medications Current Medications Medications Dose Ordered Sig/Debi Route Start Time Stop Time Status Last Admin Dose Admin Vancomycin HCl 0 ml @ 0 mls/hr UD IV 04/17/24 13:30 Acetaminophen/ Hydrocodone Bitart 1 tab Q4HP PRN PO 04/17/24 13:30 Ondansetron HCl 4 mg Q4HP PRN IV 04/17/24 13:30 Docusate Sodium 100 mg BIDPRN PRN PO 04/17/24 13:30 Zinc Sulfate 220 mg DAILY PO 04/18/24 10:00 04/23/24 10:09 220 MG Ascorbic Acid 500 mg BID PO 04/17/24 22:00 04/23/24 21:47 500 MG Multivitamins 1 tab DAILY PO 04/18/24 10:00 04/23/24 10:09 1 TAB Acetaminophen 650 mg Q6HP PRN PO 04/17/24 13:30 Morphine Sulfate 2 mg Q4HPRN PRN IV 04/17/24 13:30 Aspirin 81 mg DAILY PO 04/18/24 10:00 04/23/24 10:09 81 MG Atorvastatin Calcium 40 mg HS PO 04/18/24 22:00 04/23/24 21:47 40 MG Amlodipine Besylate 10 mg DAILY PO 04/18/24 10:00 04/23/24 10:09 10 MG Valsartan 320 mg DAILY PO 04/18/24 10:00 04/22/24 17:15 320 MG Insulin Glargine 30 units QAM SC 04/19/24 07:00 04/19/24 07:01 30 UNITS Insulin Human Lispro 7 units TID SC 04/18/24 14:15 04/24/24 06:00 7 UNITS Enoxaparin Sodium 40 mg DAILY SC 04/19/24 10:00 04/22/24 11:32 40 MG Sodium Chloride 10 ml QSHIFT@10,22 IV 04/18/24 22:00 04/23/24 21:47 10 ML Diagnostic Test (Pha) 1 strip ACHS 04/18/24 17:00 04/24/24 06:50 1 STRIP Insulin Human Regular HS SC 04/18/24 22:00 04/23/24 22:00 6 UNITS Insulin Human Regular AC SC 04/18/24 17:00 04/24/24 07:00 3 UNITS Dextrose 50 ml UD PRN IV 04/18/24 16:00 Ertapenem 1 gm/ Sodium Chloride 50 ml @ 100 mls/hr DAILY IV 04/21/24 10:00 04/23/24 10:09 100 MLS/HR Furosemide 20 mg DAILY IV 04/22/24 10:00 04/23/24 10:09 20 MG Vancomycin HCl 250 ml @ 250 mls/hr Q16H IV 04/24/24 03:00 04/24/24 03:01 250 MLS/HR Fentanyl Citrate 25 mcg Q1HP PRN IV 04/24/24 09:30 04/24/24 09:31 UNV Hydromorphone HCl 0.5 mg Q10M PRN IV 04/24/24 09:30 04/24/24 10:11 UNV Hydromorphone HCl 0.25 mg Q10M PRN IV 04/24/24 09:30 04/24/24 10:01 UNV Morphine Sulfate 1 mg Q30M PRN IV 04/24/24 09:30 04/24/24 11:31 UNV Examination Pt is lying on bed General Appearance: Alert, Oriented X3, Cooperative, Not in acute distress HEENT: Atraumatic, Mucous membranes moist/pink Respiratory: Clear to auscultation, Normal air movement, No added sounds Cardiovascular: Regular rate, Normal S1, Normal S2, No murmurs Abdominal: Active bowel sounds, Soft, no distention, no tenderness Extremities: partial amputation of left 2nd toe, dorsal ulceration on left 5th toe and swelling. Trace edema, Normal pulses, , covered by dressing Skin: dorsal ulceration on left 5th toe and swelling Neuro: Normal speech, sensorimotor deficits none Psych/Mental Status: Mental status NL, Mood NL Nurse was there as sharperone during examination laboratory and microbiology Laboratory Tests 04/24/24 02:50 Test 04/24/24 02:50 Range/Units Serum Glucose 183 H 74-106 mg/dL Microbiology Date/Time Source Procedure Growth Status 04/18/24 11:23 Toe Left (Little) Gram Stain - Final Complete 04/18/24 11:23 Wound Culture - Final Escherichia coli - ESBL Enterococcus faecalis Complete 04/17/24 11:14 Blood Blood Culture - Final NO GROWTH AFTER 5 DAYS OF INCUBATION. Complete Labs and/or images reviewed: Labs reviewed by me, Image(s) reviewed by me Problem List/Assessment/Plan Problem List/Assessment/Plan # Osteomyelitis 5th left toe. # chronic nonhealing diabetic ulcer 5th left toe with possible cellulitis # Peripheral vascular disease moderate to severe - Left lower extremity food CT and x-ray showed 5th proximal and middle phalanx osteomyelitis and Soft tissue swelling compatible with cellulitis. - Wound cultures, showing g negative rods ESBL& Enterococcus faecalis so, Currently on Invanz and vancomycin - Podiatric chain sales consultant evaluated the patient, advised amputation of the 5th left toe at MPJ with possible metatarsal head resection today - Postoperative day 0 S/P Amputation of the 5th left toe at the metatarsophalangeal joint, cultures sent - Cardiology performed angiogram yesterday, postoperative day 1 Patient has successful PTCA to the proximal popliteal artery using5 x 20 cammy balloon. - currently on aspirin and Lipitor - ECHO showed left ventricular systolic function estimated ejection fraction 55%. There is a grade 1 diastolic dysfunction # Critical limb ischemia secondary to PAD - diffuse disease involving the proximal popliteal as well as the distal anterior tibial artery. - postoperative day 1 Patient has successful PTCA to the proximal popliteal artery using5 x 20 cammy balloon. # Acute respiratory failure likely hypoxic -Requires oxygen therapy (nasal cannula 2 liters/minute) -Indicated IV diuretics # uncontrolled type 2 DM with HbA1c 8.5 - currently on ISS - Lantus 30 units and lispro 7 units t.i.d. # uncontrolled hypertension - continuously monitor - resume home meds # HLD - currently on Lipitor # morbid obesity with a BMI 42.8 - counseled on lifestyle modifications including diet and exercise # S/P amputation 2nd left toe with intact sutures. Lovenox for now No GI PPX cardiac and diabetic diet after procedure Reconciled home meds Goals of care discussed with the patient and familyfor more than 27 minutes: Full code status Case management discussed with Dr. Hinds, patient , family and nurse. Postoperative day 0 S/P Amputation of the 5th left toe at the metatarsophalangeal joint, cultures sent Plan discussed with: Patient My Orders My Orders Orders - VESTA COLON RESIDENT Procedure Category Date Status Time Dietary NOTICE 04/23/24 Transmitted Recommendations 14:35 Dietary Evaluation Review Comments: 1) Consider CLAUDIO 1 pkt BID for wound 2) Advance pt diet when medically feasible to a CCHO 60g diet 3) Continue current plan of care Expected Outcomes/Goals: 1) Pt diet to advance 2) Pt labs to improve 3) F/U in 2-3 days Date of Service: Apr 24, 2024 Billing Provider: LILLIAN HINDS MD Common Visit Codes: [id number] INP/OBS CARE(HIGH) VESTA COLON Apr 24, 2024 09:34 LILLIAN HINDS MD Apr 27, 2024 18:05
[2024-04-24] MEDS: ceFAZolin 1GM VL ONE (10:05)
[2024-04-24] MEDS: ROPIVACAINE 0.5% (5MG/ML) 20ML AMPULE IJ ONE (10:06)
--- NOTE | 2024-04-24 10:16 | DVHOP2 ---
Operative Report - 2 Report Details Date: 04/24/24 Preop Diagnosis: Osteomyelitis, necrosis, ulceration with exposed bone 5th left toe Postop Diagnosis: The same with necrotic tissue necrotic osteomyelitic mushy bone noted to the 5th left toe Peripheral angiography was done via retrograde approach utilizing right femoral arterial access under ultrasound guidance. There was a critical stenosis involving the proximal part of the 1st part of the popliteal artery on the right side. There was a complete occlusion of the anterior tibial artery which reconstitutes distally by the tibioperoneal trunk. Patient underwent successful PTCA to the proximal popliteal artery stenosis using5 x 20 cammy balloon to12 atmospheric pressure with excellent final result. Surgeon: Chele Lynch, MAYELA, MHA, MS, DABMSP Anesthesiologist: Dr. James MD Anesthesia: Local Consent: The patient was informed of the risks and benefits of the procedure. These include but are not limited to complications of anesthesia, postoperative infection, incomplete relief of symptoms, recurrence of symptoms, damage to blood vessels, nerves and tendons, deep venous thrombosis, pulmonary embolism and possible need for repeat surgery in the future. Name of Procedure Performed Amputation of the 5th left toe at the metatarsophalangeal joint Procedure Details Procedure Details: The patient was brought to the operating room placed on the operating table in the supine position. After MAC anesthesia was achieved three deep cultures were taken from the wound of the 5th left toe and sent to pathology as a specimen. The left foot and leg was then prepped and draped in the proper aseptic manner. Attention was now directed to procedure 1. Procedure 1. Amputation of the 5th left toe at the metatarsophalangeal joint: After topographical markings to ensure proper flap closure and incision was made by means of sharp and blunt dissection with care being taken to preserve all underlying vital structures. All bleeders were bovied or ligated as necessary. At this time the 5th left toe was noted to be with very mushy soft osteomyelitic bone and necrosis however, the toe was disarticulated at the metatarsophalangeal joint without incident and sent to pathology as specimen. 1000 cc normal saline 1 g of Ancef was used to irrigate the wound without incident was aspirated no debris was noted. Deep tissue was closed 3-0 Vicryl suture subcuticular cyst 4- 0 Vicryl suture skin with 3-0 nylon suture. Approximately 20 cc of 0.5% ropivacaine plain was injected in a local infiltration fashion for long-term postop anesthesia. Surgical dressing consisted of bacitracin ointment Xeroform 4x4s Kerlix and Alexandro bandage to yield a mildly compressive type bandage. Is important to note that the patient was prophylaxed 2 g of IV Ancef prior to surgery. Patient has a PICC line which he will use for long-term IV antibiotic regimen for approximately 4-6 weeks. Patient tolerated the procedure well left the operating recovery room in stable condition. There were no intraoperative complications. Specimen: bone, Toe Condition Good Disposition Still a Patient CHELE LYNCH DPM Apr 24, 2024 10:16
--- NOTE | 2024-04-24 12:36 | DVHINCON2 ---
Date of service: Apr 24, [address] Grande Reason for Consultation Infected left foot History of Present Illness Patient is a 68-year-old male presents to the hospital for the complaint of infected left toe. he reports that diabetic ulcer to his left 5th toe progressively getting worse draining fluid with foul smell and paresthesia Patient was hospitalized recently for the amputation and completed his one week course of antibiotics without benefit. He uses a cane for mobility. Initial superficial culture is growing ESBL and Enterococcus faecalis. Patient is seen by Podiatry who amputated history of toe on 04/24. Id is consulted to help with antibiotic management Review of his imaging showed Foot CT revealed: 5th proximal and middle phalanx osteomyelitis. Bilateral arterial duplex revealed: [id number] peripheral arterial disease. Past Medical History Patient's past medical history is significant for Hypertension, hyperlipidemia and diabetes. Past Surgical History Left toe amputation Family History: Patient reports no known family medical history. Social History Smoke: No ALCOHOL: none Lives: with Family Domestic Violence: Neg Allergies: Coded Allergies: No Known Drug Allergy (Verified Allergy, Unknown, 04/17/24) Home Meds Unable to Obtain Active Prescriptions or Reported Meds Current Medications Current Medications Medications (Trade) Dose Ordered Sig/Debi Route PRN Reason Start Time Stop Time Status Last Admin Vancomycin HCl 250 ml @ 250 mls/hr Q16H IV 04/24/24 03:00 04/24/24 03:01 Fentanyl Citrate 25 mcg Q1HP PRN IV BREAKTHROUGH PAIN (7-10) 04/24/24 09:30 04/24/24 09:40 DC Hydromorphone HCl (Dilaudid Injection) 0.5 mg Q10M PRN IV SEVERE PAIN (7-10 PAIN SCALE) 04/24/24 09:30 04/24/24 10:11 DC Hydromorphone HCl (Dilaudid Injection) 0.25 mg Q10M PRN IV MODERATE PAIN (4-6 PAIN SCALE) 04/24/24 09:30 04/24/24 10:01 DC Morphine Sulfate 1 mg Q30M PRN IV SEVERE PAIN (7-10 PAIN SCALE) 04/24/24 09:30 04/24/24 11:31 DC Review of Systems Constitutional: No: Fever, Chills, Sweats, Weakness, Malaise, Other Eyes: No: Pain, Vision change, Conjunctivae inflammation, Eyelid inflammation, Other, Redness ENT: No: Ear pain, Ear discharge, Nose pain, Nose discharge, Nose congestion, Mouth pain, Mouth swelling, Throat pain, Throat swelling, Other Respiratory: No: Cough, Dry, Shortness of breath, SOB with exertion, Wheezing, Hemoptysis, Pleuritic Pain, Sputum, Wheezing, Other Cardiovascular: No: Chest Pain, Palpitations, Orthopnea, Paroxysmal Noc. Dyspnea, Edema, Lt Headedness, Other Gastrointestinal: No: Nausea, Vomiting, Abdominal Pain, Diarrhea, Constipation, Melena, Hematochezia, Other Genitourinary: No Dysuria, No Frequency, No Incontinence, No Hematuria, No Retention, No Other Musculoskeletal: No: other, neck pain, shoulder pain, arm pain, back pain, hand pain, leg pain, foot pain Skin: Other (erythematic edematous) Neurological: No: Weakness, Numbness, Incoordination, Change in speech, Confusion, Seizures, Other Vital Signs Vital Signs Date Time Temp Pulse Resp B/P (MAP) Pulse Ox O2 Delivery O2 Flow Rate FiO2 04/24/24 09:00 98.1 68 17 114/74 (87) 91 98.1 04/23/24 20:00 Nasal Cannula* 2 28 Physical Exam General Appearance: Alert, Oriented X3, Cooperative, No acute distress HEENT: Atraumatic, PERRLA, EOMI, Mucous membr. moist/pink Respiratory: Clear to auscultation, Normal air movement Cardiovascular: Regular rate, Normal S1, Normal S2, No murmurs Abdominal: Normal bowel sounds, Soft, No tenderness, No hepatospenomegaly, No masses Extremities: No cyanosis, status post 5th toe amputation Neuro: Normal gait, Normal speech, Strength at 5/5 X4 ext, Normal tone Psych/Mental Status: Mental status NL, Mood NL Labs/Diagnostic Data Labs Test 04/24/24 07:08 04/24/24 02:50 04/23/24 06:10 04/23/24 05:17 Range/Units POC Glucose 180 H 70-106 mg/dl White Blood Count 8.8 4.4-10.8 10^3/uL Red Blood Count 5.37 4.5-5.90 10^6/uL Hemoglobin 15.5 13.5-17.5 g/dL Hematocrit 46.0 41.0-53.0 % Mean Corpuscular Volume 85.8 80.0-100.0 fL Mean Corpuscular Hemoglobin 29.0 28.0-32.0 pg Mean Corpuscular Hemoglobin Concent 33.8 32.0-36.0 g/dL Red Cell Distribution Width 13.5 11.8-14.3 % Platelet Count 221 140-450 10^3/uL Mean Platelet Volume 8.0 6.9-10.8 fL Neutrophils (%) (Auto) 67.7 37.0-80.0 % Lymphocytes (%) (Auto) 16.6 10.0-50.0 % Monocytes (%) (Auto) 10.2 0.0-12.0 % Eosinophils (%) (Auto) 5.0 0.0-7.0 % Basophils (%) (Auto) 0.5 0.0-2.0 % Neutrophils # (Auto) 5.9 1.6-8.6 10 ^3/uL Lymphocytes # (Auto) 1.5 0.4-5.4 10 ^3/uL Monocytes # (Auto) 0.9 0-1.3 10 ^3/uL Eosinophils # (Auto) 0.4 0-0.8 10 ^3/uL Basophils # (Auto) 0 0-0.2 10 ^3/uL Nucleated Red Blood Cells 0.0 % Sodium Level 138 136-145 mmol/L Potassium Level 4.0 3.5-5.1 mmol/L Chloride Level 101 98-107 mmol/L Carbon Dioxide Level 29 20-31 mmol/L Anion Gap 8 5-15 Blood Urea Nitrogen 23 9-23 mg/dL Creatinine 1.14 0.700-1.30 mg/dL Glomerular Filtration Rate Calc 69 >90 mL/min BUN/Creatinine Ratio 20.2 H 10.0-20.0 Serum Glucose 183 H 74-106 mg/dL Calcium Level 9.6 8.7-10.4 mg/dL Vancomycin Level Trough 17.1 H 5-10 ug/mL Urine Color Yellow Yellow Urine Clarity Clear Clear Urine pH 5.0 5.0-9.0 Urine Specific [place] 1.022 1.001-1.035 Urine Protein 2+ H Negative Urine Ketones Trace Negative Urine Blood Negative Negative /uL Urine Nitrite Negative Negative Urine Bilirubin Negative Negative Urine Urobilinogen Normal Negative mg/dL Urine Leukocyte Esterase 2+ Negative /uL Urine RBC 4 0 - 3 /hpf Urine WBC 4 0 - 3 /hpf Urine Squamous Epithelial Cells Few <5 /hpf Urine Bacteria None seen None Seen /hpf Urine Hyaline Casts Few 0 - 2 /lpf Urine Mucus Few None Seen Urine Glucose Normal Normal mg/dL Urine Opiates Screen Neg NEGATIVE Urine Fentanyl Screen Neg NEGATIVE Urine Barbiturates Screen Neg NEGATIVE Urine Phencyclidine Screen Neg NEGATIVE Urine Amphetamines Screen Neg NEGATIVE Urine Benzodiazepines Screen Neg NEGATIVE Urine Cocaine Screen Neg NEGATIVE Urine Cannabinoids Screen Neg NEGATIVE Total Bilirubin 0.6 0.2-1.0 mg/dL Aspartate Amino Transferase (AST) 20 13-40 U/L Alanine Aminotransferase (ALT) 24 7-40 U/L Alkaline Phosphatase 102 46-116 U/L Total Protein 7.2 5.7-8.2 g/dL Albumin 4.2 3.2-4.8 g/dL Test 04/22/24 06:00 04/18/24 05:15 04/17/24 11:14 Range/Units Prothrombin Time 11.4 9.3-11.8 sec Prothrombin Time INR 1.08 0.9-1.15 Activated Partial Thromboplast Time 28.5 24.5-34.5 SEC Magnesium Level 1.6 1.6-2.6 mg/dL Triglycerides Level 181 H < 150 mg/dL Cholesterol Level 109 < 200 mg/dL LDL Cholesterol 52 < 100 mg/dL HDL Cholesterol 25 L 40-59 mg/dL Vitamin B12 Level 358 211-911 pg/mL Vitamin D 25-Hydroxy 17.5 L 30.0-100 ng/mL Thyroid Stimulating Hormone (TSH) 1.65 0.55-4.78 uIU/mL Erythrocyte Sedimentation Rate 12 0-20 mm/hr Hemoglobin A1c 8.5 H <5.7 % A1C Lactic Acid Level 1.8 0.4-2.0 mmol/L Microbiology Date/Time Source Procedure Growth Status 04/18/24 11:23 Toe Left (Little) Gram Stain - Final Complete 04/18/24 11:23 Wound Culture - Final Escherichia coli - ESBL Enterococcus faecalis Complete 04/17/24 11:14 Blood Blood Culture - Final NO GROWTH AFTER 5 DAYS OF INCUBATION. Complete Assessment Patient is a 68-year-old male presents to the hospital with: Osteomyelitis of left foot 5th toe History of left second toe amputation Diabetes mellitus Recommendations: Current antibiotics: IV Vancomycin and ertapenem; continue for now 04/17, Blood culture: No growth monitored 04/18, Wound culture: Escherichia coli - ESBL and Enterococcus faecalis (superficial cultures) He is status post amputation of 5th toe today, follow OR cultures Repeat x-ray of left foot to know the extent of amputation Reviewed Chest x-ray, Foot x-ray, Foot CT and Duplex scan lower extremity artery Thank you for consult and for giving an opportunity to take care of this patient. Plan discussed with: Patient, Other KATI SALTER MD Apr 24, 2024 12:36
--- NOTE | 2024-04-24 17:05 | DVHPN2 ---
Consult Progress Note Subjective Patient reports: Feels better Other Systems: Denies any cardiac symptoms Objective vital signs Vital Sign Date Time Temp Pulse Resp B/P (MAP) Pulse Ox O2 Delivery O2 Flow Rate FiO2 04/24/24 16:56 97.9 73 16 129/51 (77) 98 97.9 04/24/24 10:14 Mask 6.0 04/24/24 10:14 94 Total Intake and Output 04/23/24 04/23/24 04/24/24 15:00 23:00 07:00 Intake Total 0 ml 600 ml Output Total 0 ml 375 ml Balance 0 ml 225 ml medications Current Medications Medications Dose Ordered Sig/Debi Route Start Time Stop Time Status Last Admin Dose Admin Vancomycin HCl 0 ml @ 0 mls/hr UD IV 04/17/24 13:30 Acetaminophen/ Hydrocodone Bitart 1 tab Q4HP PRN PO 04/17/24 13:30 Ondansetron HCl 4 mg Q4HP PRN IV 04/17/24 13:30 Docusate Sodium 100 mg BIDPRN PRN PO 04/17/24 13:30 Zinc Sulfate 220 mg DAILY PO 04/18/24 10:00 04/24/24 12:43 220 MG Ascorbic Acid 500 mg BID PO 04/17/24 22:00 04/24/24 12:43 500 MG Multivitamins 1 tab DAILY PO 04/18/24 10:00 04/24/24 12:43 1 TAB Acetaminophen 650 mg Q6HP PRN PO 04/17/24 13:30 Morphine Sulfate 2 mg Q4HPRN PRN IV 04/17/24 13:30 Aspirin 81 mg DAILY PO 04/18/24 10:00 04/24/24 12:44 81 MG Atorvastatin Calcium 40 mg HS PO 04/18/24 22:00 04/23/24 21:47 40 MG Amlodipine Besylate 10 mg DAILY PO 04/18/24 10:00 04/23/24 10:09 10 MG Valsartan 320 mg DAILY PO 04/18/24 10:00 04/22/24 17:15 320 MG Insulin Glargine 30 units QAM SC 04/19/24 07:00 04/19/24 07:01 30 UNITS Insulin Human Lispro 7 units TID SC 04/18/24 14:15 04/24/24 06:00 7 UNITS Sodium Chloride 10 ml QSHIFT@10,22 IV 04/18/24 22:00 04/24/24 10:00 10 ML Diagnostic Test (Pha) 1 strip ACHS 04/18/24 17:00 04/24/24 11:30 1 STRIP Insulin Human Regular HS SC 04/18/24 22:00 04/23/24 22:00 6 UNITS Insulin Human Regular AC SC 04/18/24 17:00 04/24/24 12:51 2 UNITS Dextrose 50 ml UD PRN IV 04/18/24 16:00 Ertapenem 1 gm/ Sodium Chloride 50 ml @ 100 mls/hr DAILY IV 04/21/24 10:00 04/24/24 14:53 100 MLS/HR Furosemide 20 mg DAILY IV 04/22/24 10:00 04/23/24 10:09 20 MG Vancomycin HCl 250 ml @ 250 mls/hr Q16H IV 04/24/24 03:00 04/24/24 03:01 250 MLS/HR Rivaroxaban 2.5 mg BID PO 04/24/24 22:00 Examination: LUNGS:Normal, CVS:Normal, NEURO:Normal laboratory and microbiology Laboratory Tests 04/24/24 02:50 Test 04/24/24 02:50 Range/Units Serum Glucose 183 H 74-106 mg/dL Problem List/Assessment/Plan Problem List/Assessment/Plan Critical limb ischemia secondary to diffuse disease to proximal popliteal artery Diabetic ulcer with left 5th toe osteomyelitis Recent left 2nd toe amputation, 3 months ago Insulin-dependent diabetes mellitus, uncontrolled (HgbA1c 8.5%) Hypertension Dyslipidemia Morbid obesity Plan/Recommendation (Dr. Pearson) Patient seen and examined at bedside with Dr. Pearson. Patient underwent a peripheral angiogram on 04/23/2024 in which the patient underwent a successful PTCA to the proximal popliteal using cammy balloon. We will recommend initiation of low-dose Xarelto, single antiplatelet therapy (ASA 81mg), and lipid-lowering agent. Denies claudication at this time, hold cilostazol. There is no further inpatient cardiac workup indicated at this time. Please reconsult if needed. Thank you for allowing us to care for this patient. Please call with any questions or concerns. This medical document was created using an electronic medical record system with voice recognition software and computerized dictation system. Although this document has been carefully reviewed, there might still be some phonetic and typographical errors. Occasional wrong-word or ``sound-alike substitutions may have occurred due to the inherent limitations of voice recognition software. These areas are purely typographical due to imperfections of the software programs and do not reflect any compromise in the patient's medical care. Please read the chart carefully and recognize, using context, where these substitutions have occurred. Plan discussed with: Patient Dietary Evaluation Review Comments: Follow CCHO-60 diet, consider Taj BID, maintain glu WNL Expected Outcomes/Goals: controlled DM, healed wounds, gradual weight loss Date of Service: Apr 24, 2024 Billing Provider: MARIANNA PEARSON MD Common Visit Codes: [id number] INP/OBS CARE(HIGH) ADE [employer] Apr 24, 2024 17:05
[2024-04-24] MEDS: RIVAROXABAN 2.5 MG TAB PO SCH (21:31)
--- NOTE | 2024-04-24 21:31 | DVH ---
CLINICAL INDICATION: amputation TECHNIQUE: 2 views of the left foot. XY L FOOT 2 VIEW XRAY Comparison: XY L FOOT 3 VIEW XRAY on DOS: 04/17/24 FINDINGS/IMPRESSION: There is no evidence of acute fracture or dislocation. Postsurgical changes from 2nd and 5th digit amputation. No osseous destructive changes. Soft tissues are unremarkable.
[2024-04-25] VITALS (8 sets, daily range): BP systolic 110–164; BP diastolic 53–76; PULSE 59–72; RESP 17–24; TEMP 98–99.3; O2SAT 91–96
[2024-04-25] MEDS: HYDROcodone-ACET 5/325MG TAB PO PRN (04:20)
[2024-04-25 06:20] LABS: Basophils # (auto) 0 10 ^3/uL (0-0.2); Basophils % (auto) 0.5 % (0.0-2.0); Eosinophils # (auto) 0.5 10 ^3/uL (0-0.8); Eosinophils % (auto) 5.3 % (0.0-7.0); Hematocrit 42.9 % (41.0-53.0); Hemoglobin 14.7 g/dL (13.5-17.5); Lymphocytes % (auto) 21.1 % (10.0-50.0); Mean Corpuscular Hemoglobin 29.1 pg (28.0-32.0); Mean Corpuscular Hgb Conc. 34.2 g/dL (32.0-36.0); Mean Corpuscular Volume 84.9 fL (80.0-100.0); Monocytes # (auto) 0.9 10 ^3/uL (0-1.3); Monocytes % (auto) 9.5 % (0.0-12.0); Neutrophils # (auto) 5.9 10 ^3/uL (1.6-8.6); Neutrophils % (auto) 63.6 % (37.0-80.0); Nucleated Red Blood Cells % 0.1 %; Platelet Count (auto) 216 10^3/uL (140-450); Red Blood Cells 5.05 10^6/uL (4.5-5.90); Red Cell Distribution Width 13.6 % (11.8-14.3); White Blood Cell 9.3 10^3/uL (4.4-10.8)
[2024-04-25 06:49] LABS: Chloride 102 mmol/L (98-107); Potassium 4.1 mmol/L (3.5-5.1); Sodium 138 mmol/L (136-145)
[2024-04-25 06:50] LABS: Anion Gap 7 (5-15); Calcium 9.5 mg/dL (8.7-10.4); Carbon Dioxide 29 mmol/L (20-31)
[2024-04-25 06:55] LABS: BUN/Creatinine Ratio 20.7 (10.0-20.0)
[2024-04-25 06:57] LABS: Blood Urea Nitrogen 25 mg/dL (9-23); Glucose 152 mg/dL (74-106)
[2024-04-25] MEDS ORDERED: RIVAROXABAN 2.5 MG TAB PO SCH (10:00)
--- NOTE | 2024-04-25 10:35 | DVHPN2 ---
Progress Note - Dictate Date Seen: Apr 25, 2024 Medical Necessity Reason Pt with a Central, PICC or Fol: No Subjective No new acute complaints noted at this time. Initial superficial culture is growing ESBL and Enterococcus faecalis. Patient is seen by Podiatry who amputated history of toe on 04/24 Review of his imaging showed Foot CT revealed: 5th proximal and middle phalanx osteomyelitis. Bilateral arterial duplex revealed: [id number] peripheral arterial disease. vital signs Vital Sign Date Time Temp Pulse Resp B/P (MAP) Pulse Ox O2 Delivery O2 Flow Rate FiO2 04/25/24 08:02 98.6 62 17 110/53 (72) 91 98.6 04/24/24 20:00 Nasal Cannula* 2 28 Total Intake and Output 04/24/24 04/24/24 04/25/24 15:00 23:00 07:00 Intake Total 200 ml 700 ml 234 ml Output Total 0 ml Balance 200 ml 700 ml 234 ml medications Current Medications Medications Dose Ordered Sig/Debi Route Start Time Stop Time Status Last Admin Dose Admin Vancomycin HCl 0 ml @ 0 mls/hr UD IV 04/17/24 13:30 Acetaminophen/ Hydrocodone Bitart 1 tab Q4HP PRN PO 04/17/24 13:30 04/25/24 04:20 1 TAB Ondansetron HCl 4 mg Q4HP PRN IV 04/17/24 13:30 Docusate Sodium 100 mg BIDPRN PRN PO 04/17/24 13:30 Zinc Sulfate 220 mg DAILY PO 04/18/24 10:00 04/24/24 12:43 220 MG Ascorbic Acid 500 mg BID PO 04/17/24 22:00 04/24/24 21:31 500 MG Multivitamins 1 tab DAILY PO 04/18/24 10:00 04/24/24 12:43 1 TAB Acetaminophen 650 mg Q6HP PRN PO 04/17/24 13:30 Morphine Sulfate 2 mg Q4HPRN PRN IV 04/17/24 13:30 Aspirin 81 mg DAILY PO 04/18/24 10:00 04/24/24 12:44 81 MG Atorvastatin Calcium 40 mg HS PO 04/18/24 22:00 04/24/24 21:31 40 MG Amlodipine Besylate 10 mg DAILY PO 04/18/24 10:00 04/23/24 10:09 10 MG Valsartan 320 mg DAILY PO 04/18/24 10:00 04/22/24 17:15 320 MG Insulin Glargine 30 units QAM SC 04/19/24 07:00 04/19/24 07:01 30 UNITS Insulin Human Lispro 7 units TID SC 04/18/24 14:15 04/25/24 06:00 7 UNITS Sodium Chloride 10 ml QSHIFT@10,22 IV 04/18/24 22:00 04/24/24 21:12 10 ML Diagnostic Test (Pha) 1 strip ACHS 04/18/24 17:00 04/25/24 06:35 1 STRIP Insulin Human Regular HS SC 04/18/24 22:00 04/24/24 22:21 10 UNITS Insulin Human Regular AC SC 04/18/24 17:00 04/25/24 07:01 3 UNITS Dextrose 50 ml UD PRN IV 04/18/24 16:00 Ertapenem 1 gm/ Sodium Chloride 50 ml @ 100 mls/hr DAILY IV 04/21/24 10:00 04/24/24 14:53 100 MLS/HR Furosemide 20 mg DAILY IV 04/22/24 10:00 04/23/24 10:09 20 MG Rivaroxaban 2.5 mg BID PO 04/24/24 22:00 04/24/24 21:31 2.5 MG Rivaroxaban 2.5 mg BID PO 04/25/24 10:00 UNV Vancomycin HCl 250 ml @ 250 mls/hr Q16H IV 04/25/24 11:00 objective General Appearance: Alert, Oriented X3, Cooperative, No acute distress HEENT: Atraumatic, PERRLA, EOMI, Mucous membr. moist/pink Respiratory: Clear to auscultation, Normal air movement Cardiovascular: Regular rate, Normal S1, Normal S2, No murmurs Abdominal: Normal bowel sounds, Soft, No tenderness, No hepatospenomegaly, No masses Extremities: No cyanosis, status post 2nd and 5th toe amputation Neuro: Normal gait, Normal speech, Strength at 5/5 X4 ext, Normal tone Psych/Mental Status: Mental status NL, Mood NL laboratory and microbiology Laboratory Tests 04/25/24 05:14 Test 04/25/24 05:14 Range/Units Serum Glucose 152 H 74-106 mg/dL Assessment/Plan Patient is a 68-year-old male presents to the hospital with: Osteomyelitis of left foot 5th toe History of left second toe amputation Diabetes mellitus Recommendations: Current antibiotics: IV Vancomycin and ertapenem; continue for now 04/17, Blood culture: No growth monitored 04/18, Wound culture: Escherichia coli - ESBL and Enterococcus faecalis (superficial cultures) 04/23; OR cx prelim no growth He is status post amputation of 5th toe today, follow OR cultures reviewed Repeat x-ray of left foot to know the extent of amputation: based on comparing previous CT/ xray of foot. all osteomyelitis part prox and distal phalanx is amputated. anticipating two weeks of oral antibiotics if cultures are sensitive wound care follow up as out pt Reviewed Chest x-ray, Foot x-ray, Foot CT and Duplex scan lower extremity artery Thank you for consult and for giving an opportunity to take care of this patient. Dietary Evaluation Review Comments: Follow CCHO-60 diet, consider Taj BID, maintain glu WNL Expected Outcomes/Goals: controlled DM, healed wounds, gradual weight loss Plan discussed with: Other KATI SALTER MD Apr 25, 2024 10:35
--- NOTE | 2024-04-25 10:59 | DVHPNRES ---
Progress Note Date Seen: Apr 25, 2024 Resident Creating Document: VESTA COLON RESIDENT Medical Necessity Reason Pt with a Central, PICC or Fol: No Subjective Review of Systems Majo BERMUDEZ a 68-year-old Guatemalan-speaking male with a PMH of type 2 DM, HTN, HLD, 2nd left toe amputation presented to the ED for the evaluation chronic left 5th toe wound. Patient seen and examined at the bedside. Patient reported improvement in pain since admission. Wound cultures growing ESBL& Enterococcus faecalis, currently on Invanz And vancomycin. Postoperative day 2 Patient has successful PTCA to the proximal popliteal artery using5 x 20 cammy balloon. Continue tight glycemic control and aggressive ABX therapy. Postoperative day 1 S/P Amputation of the 5th left toe at the metatarsophalangeal joint, cultures sent. Consulted Infectious Disease for antibiotic selection advised to continue current regimen until cultures arrived Patient reports: No new complaints, Feels better Objective vital signs Vital Sign Date Time Temp Pulse Resp B/P (MAP) Pulse Ox O2 Delivery O2 Flow Rate FiO2 04/25/24 10:37 134/72 04/25/24 08:02 98.6 62 17 91 98.6 04/24/24 20:00 Nasal Cannula* 2 28 Total Intake and Output 04/24/24 04/24/24 04/25/24 15:00 23:00 07:00 Intake Total 200 ml 700 ml 234 ml Output Total 0 ml Balance 200 ml 700 ml 234 ml medications Current Medications Medications Dose Ordered Sig/Debi Route Start Time Stop Time Status Last Admin Dose Admin Vancomycin HCl 0 ml @ 0 mls/hr UD IV 04/17/24 13:30 Acetaminophen/ Hydrocodone Bitart 1 tab Q4HP PRN PO 04/17/24 13:30 04/25/24 04:20 1 TAB Ondansetron HCl 4 mg Q4HP PRN IV 04/17/24 13:30 Docusate Sodium 100 mg BIDPRN PRN PO 04/17/24 13:30 Zinc Sulfate 220 mg DAILY PO 04/18/24 10:00 04/25/24 10:36 220 MG Ascorbic Acid 500 mg BID PO 04/17/24 22:00 04/25/24 10:36 500 MG Multivitamins 1 tab DAILY PO 04/18/24 10:00 04/25/24 10:35 1 TAB Acetaminophen 650 mg Q6HP PRN PO 04/17/24 13:30 Morphine Sulfate 2 mg Q4HPRN PRN IV 04/17/24 13:30 Aspirin 81 mg DAILY PO 04/18/24 10:00 04/25/24 10:33 81 MG Atorvastatin Calcium 40 mg HS PO 04/18/24 22:00 04/24/24 21:31 40 MG Amlodipine Besylate 10 mg DAILY PO 04/18/24 10:00 04/25/24 10:36 10 MG Valsartan 320 mg DAILY PO 04/18/24 10:00 04/25/24 10:35 320 MG Insulin Glargine 30 units QAM SC 04/19/24 07:00 04/19/24 07:01 30 UNITS Insulin Human Lispro 7 units TID SC 04/18/24 14:15 04/25/24 06:00 7 UNITS Sodium Chloride 10 ml QSHIFT@10,22 IV 04/18/24 22:00 04/25/24 10:00 10 ML Diagnostic Test (Pha) 1 strip ACHS 04/18/24 17:00 04/25/24 06:35 1 STRIP Insulin Human Regular HS SC 04/18/24 22:00 04/24/24 22:21 10 UNITS Insulin Human Regular AC SC 04/18/24 17:00 04/25/24 07:01 3 UNITS Dextrose 50 ml UD PRN IV 04/18/24 16:00 Ertapenem 1 gm/ Sodium Chloride 50 ml @ 100 mls/hr DAILY IV 04/21/24 10:00 04/25/24 10:32 100 MLS/HR Furosemide 20 mg DAILY IV 04/22/24 10:00 04/25/24 10:37 20 MG Rivaroxaban 2.5 mg BID PO 04/24/24 22:00 04/25/24 10:34 2.5 MG Rivaroxaban 2.5 mg BID PO 04/25/24 10:00 UNV Vancomycin HCl 250 ml @ 250 mls/hr Q16H IV 04/25/24 11:00 Examination Pt is lying on bed General Appearance: Alert, Oriented X3, Cooperative, Not in acute distress HEENT: Atraumatic, Mucous membranes moist/pink Respiratory: Clear to auscultation, Normal air movement, No added sounds Cardiovascular: Regular rate, Normal S1, Normal S2, No murmurs Abdominal: Active bowel sounds, Soft, no distention, no tenderness Extremities: partial amputation of left 2nd toe, dorsal ulceration on left 5th toe and swelling. Trace edema, Normal pulses, , covered by dressing Skin: dorsal ulceration on left 5th toe and swelling Neuro: Normal speech, sensorimotor deficits none Psych/Mental Status: Mental status NL, Mood NL Nurse was there as sharperone during examination laboratory and microbiology Laboratory Tests 04/25/24 05:14 Test 04/25/24 05:14 Range/Units Serum Glucose 152 H 74-106 mg/dL Microbiology Date/Time Source Procedure Growth Status 04/18/24 11:23 Toe Left (Little) Gram Stain - Final Complete 04/18/24 11:23 Wound Culture - Final Escherichia coli - ESBL Enterococcus faecalis Complete 04/17/24 11:14 Blood Blood Culture - Final NO GROWTH AFTER 5 DAYS OF INCUBATION. Complete Labs and/or images reviewed: Labs reviewed by me, Image(s) reviewed by me Problem List/Assessment/Plan Problem List/Assessment/Plan # Osteomyelitis 5th left toe. # chronic nonhealing diabetic ulcer 5th left toe with possible cellulitis # Peripheral vascular disease moderate to severe - Left lower extremity food CT and x-ray showed 5th proximal and middle phalanx osteomyelitis and Soft tissue swelling compatible with cellulitis. - Wound cultures, showing g negative rods ESBL& Enterococcus faecalis so, Currently on Invanz and vancomycin - Podiatric managing consultant clinical professor evaluated the patient, advised amputation of the 5th left toe at MPJ with possible metatarsal head resection today - Postoperative day 1 S/P Amputation of the 5th left toe at the metatarsophalangeal joint, cultures sent - Cardiology performed angiogram yesterday, postoperative day 2 Patient has successful PTCA to the proximal popliteal artery using5 x 20 cammy balloon. - currently on aspirin and Lipitor - ECHO showed left ventricular systolic function estimated ejection fraction 55%. There is a grade 1 diastolic dysfunction - Consulted Infectious Disease for antibiotic selection advised to continue current regimen until cultures arrived # Critical limb ischemia secondary to PAD - diffuse disease involving the proximal popliteal as well as the distal anterior tibial artery. - postoperative day 2 Patient has successful PTCA to the proximal popliteal artery using5 x 20 cammy balloon. # Acute respiratory failure likely hypoxic- improved -Indicated IV diuretics # uncontrolled type 2 DM with HbA1c 8.5 - currently on ISS - Lantus 30 units and lispro 7 units t.i.d. # uncontrolled hypertension - continuously monitor - resume home meds # HLD - currently on Lipitor # morbid obesity with a BMI 42.8 - counseled on lifestyle modifications including diet and exercise # S/P amputation 2nd left toe with intact sutures. Lovenox for now No GI PPX cardiac and diabetic diet after procedure Reconciled home meds Goals of care discussed with the patient and familyfor more than 27 minutes: Full code status Case management discussed with Dr. Hinds, patient , family and nurse. Postoperative day 1 S/P Amputation of the 5th left toe at the metatarsophalangeal joint, cultures sent. Consulted Infectious Disease for antibiotic selection advised to continue current regimen until cultures arrived Plan discussed with: Patient My Orders My Orders Orders - VESTA COLON RESIDENT Procedure Category Date Status Time Dietary NOTICE 04/24/24 Transmitted Recommendations 11:36 L Foot 2 View Xray XY 04/24/24 Resulted 17:46 Dietary Evaluation Review Comments: Follow CCHO-60 diet, consider Taj BID, maintain glu WNL Expected Outcomes/Goals: controlled DM, healed wounds, gradual weight loss Date of Service: Apr 25, 2024 Billing Provider: LILLIAN HINDS MD Common Visit Codes: [id number] INP/OBS CARE(HIGH) VESTA COLON Apr 25, 2024 10:59 LILLIAN HINDS MD Apr 27, 2024 18:05
[2024-04-25] MEDS: VANCOMYCIN 1GM/250ML KIT 250 ML IV SCH (12:15)
[2024-04-25] MEDS: VANCOMYCIN 1GM/250ML KIT 0 ML IV ONE (13:50)
[2024-04-25] MEDS: ROPIVACAINE 0.5% (5MG/ML) 20ML AMPULE IJ ONE (13:55)
[2024-04-25] MEDS: ceFAZolin 2 GM/D5W100ml 100 ML IV ONE (13:55)
[2024-04-25] MEDS: VANCOMYCIN 1GM/250ML KIT 200 ML IV ONE ×2 (13:55→13:58)
[2024-04-25] MEDS: BACITRACIN TOP OINT 1 UD PKG TOP ONE (13:56)
[2024-04-25] MEDS: METOCLOPRAMIDE HCL 5MG/ml INJ 2ml VIAL IV ONE (13:57)
[2024-04-25] MEDS: KETOROLAC TROMETH 30 MG/ML 1ML VIAL IV ONE (13:57)
[2024-04-25] MEDS: ACCU-CHEK COMFORT CURVE STRIP VI ONE (13:58)
[2024-04-26] VITALS (8 sets, daily range): BP systolic 108–151; BP diastolic 51–79; PULSE 59–69; RESP 18–21; TEMP 98.1–99.1; O2SAT 90–96
[2024-04-26 06:54] LABS: Anion Gap 7 (5-15); Calcium 9.7 mg/dL (8.7-10.4); Carbon Dioxide 31 mmol/L (20-31); Chloride 99 mmol/L (98-107); Sodium 137 mmol/L (136-145)
[2024-04-26 07:00] LABS: Blood Urea Nitrogen 22 mg/dL (9-23)
[2024-04-26 07:04] LABS: Glucose 146 mg/dL (74-106)
--- NOTE | 2024-04-26 13:51 | DVHPN2 ---
Progress Note - Dictate Date Seen: Apr 26, 2024 Medical Necessity Reason Pt with a Central, PICC or Fol: No Subjective Patient was seen and evaluated at bedside. He reported improvement in pain since admission. Postoperative day 3, Patient has successful PTCA to the proximal popliteal artery using 5 x 20 cammy balloon. No new acute complaints noted at this time. Initial superficial culture is growing ESBL and Enterococcus faecalis. Patient is seen by Podiatry who amputated history of toe on 04/24 Review of his imaging showed Foot CT revealed: 5th proximal and middle phalanx osteomyelitis. Bilateral arterial duplex revealed: [id number] peripheral arterial disease. vital signs Vital Sign Date Time Temp Pulse Resp B/P (MAP) Pulse Ox O2 Delivery O2 Flow Rate FiO2 04/26/24 10:37 124/51 04/26/24 09:00 98.4 69 18 90 98.4 04/26/24 08:00 Room Air* 0 21 Total Intake and Output 04/25/24 04/25/24 04/26/24 15:00 23:00 07:00 Intake Total 300 ml 800 ml 664 ml Output Total 1300 ml Balance 300 ml -500 ml 664 ml medications Current Medications Medications Dose Ordered Sig/Debi Route Start Time Stop Time Status Last Admin Dose Admin Vancomycin HCl 0 ml @ 0 mls/hr UD IV 04/17/24 13:30 Acetaminophen/ Hydrocodone Bitart 1 tab Q4HP PRN PO 04/17/24 13:30 04/25/24 17:27 1 TAB Ondansetron HCl 4 mg Q4HP PRN IV 04/17/24 13:30 Docusate Sodium 100 mg BIDPRN PRN PO 04/17/24 13:30 Zinc Sulfate 220 mg DAILY PO 04/18/24 10:00 04/26/24 10:36 220 MG Ascorbic Acid 500 mg BID PO 04/17/24 22:00 04/26/24 10:36 500 MG Multivitamins 1 tab DAILY PO 04/18/24 10:00 04/26/24 10:00 1 TAB Acetaminophen 650 mg Q6HP PRN PO 04/17/24 13:30 Morphine Sulfate 2 mg Q4HPRN PRN IV 04/17/24 13:30 Aspirin 81 mg DAILY PO 04/18/24 10:00 04/26/24 10:36 81 MG Atorvastatin Calcium 40 mg HS PO 04/18/24 22:00 04/25/24 22:34 40 MG Amlodipine Besylate 10 mg DAILY PO 04/18/24 10:00 04/26/24 10:36 10 MG Valsartan 320 mg DAILY PO 04/18/24 10:00 04/26/24 10:36 320 MG Insulin Glargine 30 units QAM SC 04/19/24 07:00 04/26/24 07:03 30 UNITS Insulin Human Lispro 7 units TID SC 04/18/24 14:15 04/26/24 07:04 7 UNITS Sodium Chloride 10 ml QSHIFT@10,22 IV 04/18/24 22:00 04/26/24 10:00 10 ML Diagnostic Test (Pha) 1 strip ACHS 04/18/24 17:00 04/26/24 06:43 1 STRIP Insulin Human Regular HS SC 04/18/24 22:00 04/25/24 22:30 6 UNITS Insulin Human Regular AC SC 04/18/24 17:00 04/26/24 07:02 3 UNITS Dextrose 50 ml UD PRN IV 04/18/24 16:00 Ertapenem 1 gm/ Sodium Chloride 50 ml @ 100 mls/hr DAILY IV 04/21/24 10:00 04/26/24 10:37 100 MLS/HR Furosemide 20 mg DAILY IV 04/22/24 10:00 04/26/24 10:37 20 MG Rivaroxaban 2.5 mg BID PO 04/24/24 22:00 04/26/24 10:37 2.5 MG Rivaroxaban 2.5 mg BID PO 04/25/24 10:00 UNV Vancomycin HCl 250 ml @ 250 mls/hr Q16H IV 04/25/24 11:00 04/26/24 03:25 250 MLS/HR objective General Appearance: Alert, Oriented X3, Cooperative, No acute distress HEENT: Atraumatic, PERRLA, EOMI, Mucous membr. moist/pink Respiratory: Clear to auscultation, Normal air movement Cardiovascular: Regular rate, Normal S1, Normal S2, No murmurs Abdominal: Normal bowel sounds, Soft, No tenderness, No hepatospenomegaly, No masses Extremities: No cyanosis, status post 2nd and 5th toe amputation Neuro: Normal gait, Normal speech, Strength at 5/5 X4 ext, Normal tone Psych/Mental Status: Mental status NL, Mood NL laboratory and microbiology Laboratory Tests 04/26/24 05:03 04/25/24 05:14 Test 04/26/24 05:03 Range/Units Serum Glucose 146 H 74-106 mg/dL Assessment/Plan Patient is a 68-year-old male presents to the hospital with: Osteomyelitis of left foot 5th toe History of left second toe amputation Diabetes mellitus Recommendations: Current antibiotics: IV Vancomycin and ertapenem; continue for now 04/17, Blood culture: No growth monitored 04/18, Wound culture: Escherichia coli - ESBL and Enterococcus faecalis (superficial cultures) 04/23; OR cx prelim no growth He is status post amputation of 5th toe today, follow OR cultures reviewed Repeat x-ray of left foot to know the extent of amputation: based on comparing previous CT/ xray of foot. all osteomyelitis part prox and distal phalanx is amputated. anticipating two weeks of oral antibiotics if cultures are sensitive wound care follow up as out pt Reviewed Chest x-ray, Foot x-ray, Foot CT and Duplex scan lower extremity artery Thank you for consult and for giving an opportunity to take care of this patient. Dietary Evaluation Review Comments: Follow CCHO-60 diet, consider Taj BID, maintain glu WNL Expected Outcomes/Goals: controlled DM, healed wounds, gradual weight loss Plan discussed with: Other KATI SALTER MD Apr 26, 2024 13:51
--- NOTE | 2024-04-26 15:48 | DVHPNRES ---
Progress Note Date Seen: Apr 26, 2024 Resident Creating Document: VESTA COLON RESIDENT Medical Necessity Reason Pt with a Central, PICC or Fol: No Subjective Review of Systems Majo BERMUDEZ a 68-year-old Tuval[place]-speaking male with a PMH of type 2 DM, HTN, HLD, 2nd left toe amputation presented to the ED for the evaluation chronic left 5th toe wound. Patient seen and examined at the bedside. Patient reported no active complaints. Currently on Invanz And vancomycin. Consulted Infectious Disease for antibiotic selection advised to continue current regimen until cultures arrived, preliminary culture showing enterococci species and waiting for final cultures for antibiotics selection for the discharge. Patient reports: No new complaints, Feels better Objective vital signs Vital Sign Date Time Temp Pulse Resp B/P (MAP) Pulse Ox O2 Delivery O2 Flow Rate FiO2 04/26/24 13:00 98.1 63 20 139/59 (85) 92 98.1 04/26/24 08:00 Room Air* 0 21 Total Intake and Output 04/25/24 04/25/24 04/26/24 15:00 23:00 07:00 Intake Total 300 ml 800 ml 664 ml Output Total 1300 ml Balance 300 ml -500 ml 664 ml medications Current Medications Medications Dose Ordered Sig/Debi Route Start Time Stop Time Status Last Admin Dose Admin Vancomycin HCl 0 ml @ 0 mls/hr UD IV 04/17/24 13:30 Acetaminophen/ Hydrocodone Bitart 1 tab Q4HP PRN PO 04/17/24 13:30 04/25/24 17:27 1 TAB Ondansetron HCl 4 mg Q4HP PRN IV 04/17/24 13:30 Docusate Sodium 100 mg BIDPRN PRN PO 04/17/24 13:30 Zinc Sulfate 220 mg DAILY PO 04/18/24 10:00 04/26/24 10:36 220 MG Ascorbic Acid 500 mg BID PO 04/17/24 22:00 04/26/24 10:36 500 MG Multivitamins 1 tab DAILY PO 04/18/24 10:00 04/26/24 10:00 1 TAB Acetaminophen 650 mg Q6HP PRN PO 04/17/24 13:30 Morphine Sulfate 2 mg Q4HPRN PRN IV 04/17/24 13:30 Aspirin 81 mg DAILY PO 04/18/24 10:00 04/26/24 10:36 81 MG Atorvastatin Calcium 40 mg HS PO 04/18/24 22:00 04/25/24 22:34 40 MG Amlodipine Besylate 10 mg DAILY PO 04/18/24 10:00 04/26/24 10:36 10 MG Valsartan 320 mg DAILY PO 04/18/24 10:00 04/26/24 10:36 320 MG Insulin Glargine 30 units QAM SC 04/19/24 07:00 04/26/24 07:03 30 UNITS Insulin Human Lispro 7 units TID SC 04/18/24 14:15 04/26/24 14:00 7 UNITS Sodium Chloride 10 ml QSHIFT@10,22 IV 04/18/24 22:00 04/26/24 10:00 10 ML Diagnostic Test (Pha) 1 strip ACHS 04/18/24 17:00 04/26/24 11:30 1 STRIP Insulin Human Regular HS SC 04/18/24 22:00 04/25/24 22:30 6 UNITS Insulin Human Regular AC SC 04/18/24 17:00 04/26/24 07:02 3 UNITS Dextrose 50 ml UD PRN IV 04/18/24 16:00 Ertapenem 1 gm/ Sodium Chloride 50 ml @ 100 mls/hr DAILY IV 04/21/24 10:00 04/26/24 10:37 100 MLS/HR Furosemide 20 mg DAILY IV 04/22/24 10:00 04/26/24 10:37 20 MG Rivaroxaban 2.5 mg BID PO 04/24/24 22:00 04/26/24 10:37 2.5 MG Rivaroxaban 2.5 mg BID PO 04/25/24 10:00 UNV Vancomycin HCl 250 ml @ 250 mls/hr Q16H IV 04/25/24 11:00 04/26/24 03:25 250 MLS/HR Examination Pt is lying on bed General Appearance: Alert, Oriented X3, Cooperative, Not in acute distress HEENT: Atraumatic, Mucous membranes moist/pink Respiratory: Clear to auscultation, Normal air movement, No added sounds Cardiovascular: Regular rate, Normal S1, Normal S2, No murmurs Abdominal: Active bowel sounds, Soft, no distention, no tenderness Extremities: partial amputation of left 2nd toe, dorsal ulceration on left 5th toe and swelling. Trace edema, Normal pulses, , covered by dressing Skin: dorsal ulceration on left 5th toe and swelling Neuro: Normal speech, sensorimotor deficits none Psych/Mental Status: Mental status NL, Mood NL Nurse was there as sharperone during examination laboratory and microbiology Laboratory Tests 04/26/24 05:03 04/25/24 05:14 Test 04/26/24 05:03 Range/Units Serum Glucose 146 H 74-106 mg/dL Microbiology Date/Time Source Procedure Growth Status 04/24/24 09:50 Foot Gram Stain - Final Resulted 04/24/24 09:50 Foot Anaerobic Culture - Preliminary Resulted 04/24/24 09:50 Foot Aerobic Culture - Preliminary Resulted 04/17/24 11:14 Blood Blood Culture - Final NO GROWTH AFTER 5 DAYS OF INCUBATION. 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 - Wound cultures, showing g negative rods ESBL& Enterococcus faecalis so, Currently on Invanz and vancomycin - Podiatric etl consultant evaluated the patient, advised amputation of the 5th left toe at MPJ with possible metatarsal head resection today - S/P Amputation of the 5th left toe at the metatarsophalangeal joint, cultures sent - Cardiology performed angiogram yesterday, Patient has successful PTCA to the proximal popliteal artery using5 x 20 cammy balloon. - currently on aspirin and Lipitor - ECHO showed left ventricular systolic function estimated ejection fraction 55%. There is a grade 1 diastolic dysfunction - Consulted Infectious Disease for antibiotic selection advised to continue current regimen until cultures arrived # Critical limb ischemia secondary to PAD status post PTCA - diffuse disease involving the proximal popliteal as well as the distal anterior tibial artery. - S/P successful PTCA to the proximal popliteal artery using5 x 20 cammy balloon. # Acute respiratory failure likely hypoxic- improved -Indicated IV diuretics # uncontrolled type 2 DM with HbA1c 8.5 - currently on ISS - Lantus 30 units and lispro 7 units t.i.d. # uncontrolled hypertension - continuously monitor - resume home meds # HLD - currently on Lipitor # morbid obesity with a BMI 42.8 - counseled on lifestyle modifications including diet and exercise # S/P amputation 2nd left toe with intact sutures. Lovenox for now No GI PPX cardiac and diabetic diet after procedure Reconciled home meds Goals of care discussed with the patient and familyfor more than 27 minutes: Full code status Case management discussed with Dr. Hinds, patient , family and nurse. pending final culture results for antibiotic selection for discharge. Plan discussed with: Patient Dietary Evaluation Review Comments: Follow CCHO-60 diet, consider Taj BID, maintain glu WNL Expected Outcomes/Goals: controlled DM, healed wounds, gradual weight loss Date of Service: Apr 26, 2024 Billing Provider: LILLIAN HINDS MD Common Visit Codes: [id number] INP/OBS CARE(HIGH) VESTA COLON RESIDENT Apr 26, 2024 15:48 LILLIAN HINDS MD Apr 27, 2024 18:06
[2024-04-27 01:00] VITALS: BP 147/66; PULSE 64; RESP 18; TEMP 98; O2SAT 96
[2024-04-27 05:00] VITALS: BP 142/64; PULSE 98; RESP 18; TEMP 98.8; O2SAT 99
[2024-04-27 07:22] LABS: Anion Gap 8 (5-15); Chloride 100 mmol/L (98-107); Potassium 4.2 mmol/L (3.5-5.1); Sodium 140 mmol/L (136-145)
[2024-04-27 07:23] LABS: Calcium 9.8 mg/dL (8.7-10.4)
[2024-04-27 07:29] LABS: BUN/Creatinine Ratio 20.2 (10.0-20.0); Glucose 94 mg/dL (74-106)
[2024-04-27 07:35] LABS: Blood Urea Nitrogen 24 mg/dL (9-23); Carbon Dioxide 32 mmol/L (20-31)
[2024-04-27] MEDS: FUROSEMIDE 20 MG TAB PO SCH (10:42)
[2024-04-27 13:00] VITALS: BP 104/53; PULSE 59; RESP 18; TEMP 98.2; O2SAT 100
--- NOTE | 2024-04-27 13:34 | DVHPN2 ---
Progress Note - Dictate Date Seen: Apr 27, 2024 Medical Necessity Reason Pt with a Central, PICC or Fol: No Subjective No new acute complaints noted at this time. Initial superficial culture is growing ESBL and Enterococcus faecalis. Patient is seen by Podiatry who amputated history of toe on 04/24 Postoperative day 4, Patient has successful PTCA to the proximal popliteal artery using 5 x 20 cammy balloon. Review of his imaging showed Foot CT revealed: 5th proximal and middle phalanx osteomyelitis. Bilateral arterial duplex revealed: [id number] peripheral arterial disease. vital signs Vital Sign Date Time Temp Pulse Resp B/P (MAP) Pulse Ox O2 Delivery O2 Flow Rate FiO2 04/27/24 10:43 141/70 04/27/24 05:00 98.8 98 18 99 98.8 04/26/24 20:00 Room Air* 0 21 Total Intake and Output 04/26/24 04/26/24 04/27/24 15:00 23:00 07:00 Intake Total 526 ml 750 ml 450 ml Output Total 1100 ml 350 ml Balance 526 ml -350 ml 100 ml medications Current Medications Medications Dose Ordered Sig/Debi Route Start Time Stop Time Status Last Admin Dose Admin Vancomycin HCl 0 ml @ 0 mls/hr UD IV 04/17/24 13:30 Ondansetron HCl 4 mg Q4HP PRN IV 04/17/24 13:30 Docusate Sodium 100 mg BIDPRN PRN PO 04/17/24 13:30 Zinc Sulfate 220 mg DAILY PO 04/18/24 10:00 04/27/24 10:41 220 MG Ascorbic Acid 500 mg BID PO 04/17/24 22:00 04/27/24 10:42 500 MG Multivitamins 1 tab DAILY PO 04/18/24 10:00 04/27/24 10:41 1 TAB Acetaminophen 650 mg Q6HP PRN PO 04/17/24 13:30 Aspirin 81 mg DAILY PO 04/18/24 10:00 04/27/24 10:42 81 MG Atorvastatin Calcium 40 mg HS PO 04/18/24 22:00 04/26/24 23:46 40 MG Amlodipine Besylate 10 mg DAILY PO 04/18/24 10:00 04/27/24 10:42 10 MG Valsartan 320 mg DAILY PO 04/18/24 10:00 04/27/24 10:43 320 MG Insulin Glargine 30 units QAM SC 04/19/24 07:00 04/27/24 06:51 30 UNITS Insulin Human Lispro 7 units TID SC 04/18/24 14:15 04/27/24 06:52 7 UNITS Sodium Chloride 10 ml QSHIFT@10,22 IV 04/18/24 22:00 04/27/24 10:00 10 ML Diagnostic Test (Pha) 1 strip ACHS 04/18/24 17:00 04/27/24 11:58 1 STRIP Insulin Human Regular HS SC 04/18/24 22:00 04/26/24 23:59 4 UNITS Insulin Human Regular AC SC 04/18/24 17:00 04/27/24 11:05 6 UNITS Dextrose 50 ml UD PRN IV 04/18/24 16:00 Ertapenem 1 gm/ Sodium Chloride 50 ml @ 100 mls/hr DAILY IV 04/21/24 10:00 04/27/24 10:00 100 MLS/HR Rivaroxaban 2.5 mg BID PO 04/24/24 22:00 04/27/24 11:04 2.5 MG Rivaroxaban 2.5 mg BID PO 04/25/24 10:00 UNV Vancomycin HCl 250 ml @ 250 mls/hr Q16H IV 04/25/24 11:00 04/27/24 11:04 250 MLS/HR Furosemide 20 mg DAILY PO 04/27/24 10:00 04/27/24 10:42 20 MG objective General Appearance: Alert, Oriented X3, Cooperative, No acute distress HEENT: Atraumatic, PERRLA, EOMI, Mucous membr. moist/pink Respiratory: Clear to auscultation, Normal air movement Cardiovascular: Regular rate, Normal S1, Normal S2, No murmurs Abdominal: Normal bowel sounds, Soft, No tenderness, No hepatospenomegaly, No masses Extremities: No cyanosis, status post 2nd and 5th toe amputation Neuro: Normal gait, Normal speech, Strength at 5/5 X4 ext, Normal tone Psych/Mental Status: Mental status NL, Mood NL laboratory and microbiology Laboratory Tests 04/27/24 05:30 04/25/24 05:14 Test 04/27/24 05:30 Range/Units Serum Glucose 94 74-106 mg/dL Assessment/Plan Patient is a 68-year-old male presents to the hospital with: Osteomyelitis of left foot 5th toe History of left second toe amputation Diabetes mellitus Recommendations: s/p 5th toe amputation Current antibiotics: IV Vancomycin and ertapenem; continue trough level 16 04/17, Blood culture: No growth monitored 04/18, Wound culture: Escherichia coli - ESBL and Enterococcus faecalis (superficial cultures) 04/23; OR cx prelim no growth: enterococcus ; still prelim reviewed Repeat x-ray of left foot to know the extent of amputation: based on comparing previous CT/ xray of foot. all osteomyelitis part prox and distal phalanx is amputated. anticipating two weeks arrange IV Vancomycin 1g daily for 2 weeks, goal trough 10-15. IV ertapenem 1g daily for 2 weeks. weekly labs cbc with diff, cmp and esr and vancomycin trough. fax it to [phone] f/u with ID/ podiatry in 2 weeks Reviewed Chest x-ray, Foot x-ray, Foot CT and Duplex scan lower extremity artery Thank you for consult and for giving an opportunity to take care of this patient. Dietary Evaluation Review Comments: Follow CCHO-60 diet, consider Taj BID, maintain glu WNL Expected Outcomes/Goals: controlled DM, healed wounds, gradual weight loss Plan discussed with: Other KATI SALTER MD Apr 27, 2024 13:34
--- NOTE | 2024-04-27 15:45 | DVHPN2 ---
Progress Note - Dictate Date Seen: Apr 27, 2024 Medical Necessity Reason Pt with a Central, PICC or Fol: No Subjective No new acute complaints noted at this time. Initial superficial culture is growing ESBL and Enterococcus faecalis. Patient is seen by Podiatry who amputated history of toe on 04/24 04/26, Vancomycin trough: 14.5. Review of his imaging showed Foot CT revealed: 5th proximal and middle phalanx osteomyelitis. Bilateral arterial duplex revealed: [id number] peripheral arterial disease. vital signs Vital Sign Date Time Temp Pulse Resp B/P (MAP) Pulse Ox O2 Delivery O2 Flow Rate FiO2 04/27/24 13:00 98.2 59 18 104/53 (70) 100 98.2 04/26/24 20:00 Room Air* 0 21 Total Intake and Output 04/26/24 04/26/24 04/27/24 15:00 23:00 07:00 Intake Total 526 ml 750 ml 450 ml Output Total 1100 ml 350 ml Balance 526 ml -350 ml 100 ml medications Current Medications Medications Dose Ordered Sig/Debi Route Start Time Stop Time Status Last Admin Dose Admin Vancomycin HCl 0 ml @ 0 mls/hr UD IV 04/17/24 13:30 Ondansetron HCl 4 mg Q4HP PRN IV 04/17/24 13:30 Docusate Sodium 100 mg BIDPRN PRN PO 04/17/24 13:30 Zinc Sulfate 220 mg DAILY PO 04/18/24 10:00 04/27/24 10:41 220 MG Ascorbic Acid 500 mg BID PO 04/17/24 22:00 04/27/24 10:42 500 MG Multivitamins 1 tab DAILY PO 04/18/24 10:00 04/27/24 10:41 1 TAB Acetaminophen 650 mg Q6HP PRN PO 04/17/24 13:30 Aspirin 81 mg DAILY PO 04/18/24 10:00 04/27/24 10:42 81 MG Atorvastatin Calcium 40 mg HS PO 04/18/24 22:00 04/26/24 23:46 40 MG Amlodipine Besylate 10 mg DAILY PO 04/18/24 10:00 04/27/24 10:42 10 MG Valsartan 320 mg DAILY PO 04/18/24 10:00 04/27/24 10:43 320 MG Insulin Glargine 30 units QAM SC 04/19/24 07:00 04/27/24 06:51 30 UNITS Insulin Human Lispro 7 units TID SC 04/18/24 14:15 04/27/24 14:10 7 UNITS Sodium Chloride 10 ml QSHIFT@10,22 IV 04/18/24 22:00 04/27/24 10:00 10 ML Diagnostic Test (Pha) 1 strip ACHS 04/18/24 17:00 04/27/24 11:58 1 STRIP Insulin Human Regular HS SC 04/18/24 22:00 04/26/24 23:59 4 UNITS Insulin Human Regular AC SC 04/18/24 17:00 04/27/24 11:05 6 UNITS Dextrose 50 ml UD PRN IV 04/18/24 16:00 Ertapenem 1 gm/ Sodium Chloride 50 ml @ 100 mls/hr DAILY IV 04/21/24 10:00 04/27/24 10:00 100 MLS/HR Rivaroxaban 2.5 mg BID PO 04/24/24 22:00 04/27/24 11:04 2.5 MG Rivaroxaban 2.5 mg BID PO 04/25/24 10:00 UNV Vancomycin HCl 250 ml @ 250 mls/hr Q16H IV 04/25/24 11:00 04/27/24 11:04 250 MLS/HR Furosemide 20 mg DAILY PO 04/27/24 10:00 04/27/24 10:42 20 MG objective General Appearance: Alert, Oriented X3, Cooperative, No acute distress HEENT: Atraumatic, PERRLA, EOMI, Mucous membr. moist/pink Respiratory: Clear to auscultation, Normal air movement Cardiovascular: Regular rate, Normal S1, Normal S2, No murmurs Abdominal: Normal bowel sounds, Soft, No tenderness, No hepatospenomegaly, No masses Extremities: No cyanosis, status post 2nd and 5th toe amputation Neuro: Normal gait, Normal speech, Strength at 5/5 X4 ext, Normal tone Psych/Mental Status: Mental status NL, Mood NL laboratory and microbiology Laboratory Tests 04/27/24 05:30 04/25/24 05:14 Test 04/27/24 05:30 Range/Units Serum Glucose 94 74-106 mg/dL Assessment/Plan Patient is a 68-year-old male presents to the hospital with: Osteomyelitis of left foot 5th toe History of left second toe amputation Diabetes mellitus Recommendations: s/p 5th toe amputation Current antibiotics: IV Vancomycin and ertapenem; continue 04/26, trough level 14.5 04/17, Blood culture: No growth monitored 04/18, Wound culture: Escherichia coli - ESBL and Enterococcus faecalis (superficial cultures) 04/23; OR cx prelim no growth: enterococcus ; still prelim reviewed Repeat x-ray of left foot to know the extent of amputation: based on comparing previous CT/ xray of foot. all osteomyelitis part prox and distal phalanx is amputated. anticipating two weeks arrange IV Vancomycin 1g daily for 2 weeks, goal trough 10-15. IV ertapenem 1g daily for 2 weeks. weekly labs cbc with diff, cmp and esr and vancomycin trough. fax it to [phone] f/u with ID/ podiatry in 2 weeks Reviewed Chest x-ray, Foot x-ray, Foot CT and Duplex scan lower extremity artery Thank you for consult and for giving an opportunity to take care of this patient. Dietary Evaluation Review Comments: Follow CCHO-60 diet, consider Taj BID, maintain glu WNL Expected Outcomes/Goals: controlled DM, healed wounds, gradual weight loss KATI SALTER MD Apr 27, 2024 15:45
[2024-04-27 17:00] VITALS: BP 109/37; PULSE 60; RESP 18; TEMP 98.2; O2SAT 97
[2024-04-27 21:00] VITALS: BP 123/59; PULSE 64; RESP 18; TEMP 98.4; O2SAT 93
--- NOTE | 2024-04-27 22:00 | DVHPNRES ---
Progress Note Date Seen: Apr 27, 2024 Resident Creating Document: DANGELO VILLARREAL RESIDENT Medical Necessity Reason Pt with a Central, PICC or Fol: Yes The following are medically ne: PICC Line Subjective Review of Systems Jaiden William is a 68-year-old Czech-speaking male patient who presents to the ED with chief complaint of nonhealing left toe wound, associated with drainage of foul-smelling fluid and paresthesia. Patient reports follow up as outpatient with provider that indicated p.o. antibiotic, but symptoms did not improve, prompting his visit to the ED. during his stay in the ED, patient underwent foot CT which revealed 5th proximal middle phalanx osteomyelitis. Denies fever, chills, palpitation, syncope, chest pain, dyspnea, abdominal pain, nausea, vomiting, diarrhea, constipation, dysuria, bleeding, recent travel, sick contacts and other motor or sensory deficits. 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 Denies current tobacco, alcohol and other drug abuse. Allergies: Denies Home medication: Patient does not recall, no records in EMR. Patient seen and examined at bedside. Patient currently has no new complaints. He is currently status post peripheral angiography PTCA with balloon to proximal popliteal artery and 5th left toe amputation pending discharge planning with home health for specific IV antibiotics per infectious disease specialist Objective vital signs Vital Sign Date Time Temp Pulse Resp B/P (MAP) Pulse Ox O2 Delivery O2 Flow Rate FiO2 04/27/24 17:00 98.2 60 18 109/37 (61) 97 98.2 04/26/24 20:00 Room Air* 0 21 Total Intake and Output 04/26/24 04/26/24 04/27/24 15:00 23:00 07:00 Intake Total 526 ml 750 ml 450 ml Output Total 1100 ml 350 ml Balance 526 ml -350 ml 100 ml medications Current Medications Medications Dose Ordered Sig/Debi Route Start Time Stop Time Status Last Admin Dose Admin Vancomycin HCl 0 ml @ 0 mls/hr UD IV 04/17/24 13:30 Ondansetron HCl 4 mg Q4HP PRN IV 04/17/24 13:30 Docusate Sodium 100 mg BIDPRN PRN PO 04/17/24 13:30 Zinc Sulfate 220 mg DAILY PO 04/18/24 10:00 04/27/24 10:41 220 MG Ascorbic Acid 500 mg BID PO 04/17/24 22:00 04/27/24 21:35 500 MG Multivitamins 1 tab DAILY PO 04/18/24 10:00 04/27/24 10:41 1 TAB Acetaminophen 650 mg Q6HP PRN PO 04/17/24 13:30 Aspirin 81 mg DAILY PO 04/18/24 10:00 04/27/24 10:42 81 MG Atorvastatin Calcium 40 mg HS PO 04/18/24 22:00 04/27/24 21:35 40 MG Amlodipine Besylate 10 mg DAILY PO 04/18/24 10:00 04/27/24 10:42 10 MG Valsartan 320 mg DAILY PO 04/18/24 10:00 04/27/24 10:43 320 MG Insulin Glargine 30 units QAM SC 04/19/24 07:00 04/27/24 06:51 30 UNITS Insulin Human Lispro 7 units TID SC 04/18/24 14:15 04/27/24 21:34 7 UNITS Sodium Chloride 10 ml QSHIFT@10,22 IV 04/18/24 22:00 04/27/24 21:33 10 ML Diagnostic Test (Pha) 1 strip ACHS 04/18/24 17:00 04/27/24 21:35 1 STRIP Insulin Human Regular HS SC 04/18/24 22:00 04/27/24 21:34 6 UNITS Insulin Human Regular AC SC 04/18/24 17:00 04/27/24 11:05 6 UNITS Dextrose 50 ml UD PRN IV 04/18/24 16:00 Ertapenem 1 gm/ Sodium Chloride 50 ml @ 100 mls/hr DAILY IV 04/21/24 10:00 04/27/24 10:00 100 MLS/HR Rivaroxaban 2.5 mg BID PO 04/24/24 22:00 04/27/24 21:35 2.5 MG Rivaroxaban 2.5 mg BID PO 04/25/24 10:00 UNV Vancomycin HCl 250 ml @ 250 mls/hr Q16H IV 04/25/24 11:00 04/27/24 11:04 250 MLS/HR Furosemide 20 mg DAILY PO 04/27/24 10:00 04/27/24 10:42 20 MG Examination Patient lying in bed, in no acute distress General: Lucid, afebrile, mucosae are moist Cardiovascular: Normal S1 and S2. No murmurs, gallops or rubs Respiratory: Normal ventilation mechanics. Clear lung sounds on auscultation Abdomen: Soft, nontender, no organomegaly, normal bowel sounds MSK/skin: Mobilizes 4 limbs. Skin is dry and warm. Old Left foot 2nd toe amputation, with no erythema. New Left foot 5th toe amputation, no erythema and no discharge. Neurological: Oriented in 3 spheres. No motor no sensitive deficits. Pupils are isocoric and reactive laboratory and microbiology Laboratory Tests 04/27/24 05:30 04/25/24 05:14 Test 04/27/24 05:30 Range/Units Serum Glucose 94 74-106 mg/dL Microbiology Date/Time Source Procedure Growth Status 04/24/24 09:50 Foot Gram Stain - Final Resulted 04/24/24 09:50 Foot Anaerobic Culture - Preliminary Resulted 04/24/24 09:50 Aerobic Culture - Final Enterococcus faecalis Resulted 04/17/24 11:14 Blood Blood Culture - Final NO GROWTH AFTER 5 DAYS OF INCUBATION. Complete Labs and/or images reviewed: Labs reviewed by me, Image(s) reviewed by me Problem List/Assessment/Plan Problem List/Assessment/Plan Left diabetic foot complicated by osteomyelitis of 5th left toe - status post amputation Suspected sepsis due to osteomyelitis Completed foot x-ray and CT which showed 5th proximal and middle phalanx osteomyelitis and soft tissue swelling compatible with cellulitis. Wound culture presents E coli ESBL and Enterococcus faecalis. Surgical culture presents Enterococcus faecalis. Currently under IV antibiotic (Invanz and vancomycin) Podiatry on board: Completed 5th toe amputation after cardiological clearance Infectious disease on board: Recommend arranging home health for IV antibiotics (vancomycin 1 g IV daily for two weeks (goal trough 10-15) and ertapenem 1 g IV daily for two weeks) Peripheral arterial disease, moderate to severe - status post PTCA with balloon to proximal popliteal artery Completed lower limb duplex ultrasound which showed monophasic Doppler signals on left lower limb. Cardiology on board: Completed peripheral angiography on 04/22/2024, PTCA with balloon to proximal popliteal artery (diffuse disease and distal tibial artery) Currently on aspirin and statins. Hold cilostazol Acute respiratory failure Requires oxygen therapy (nasal cannula 2 liters/minute) Indicated IV diuretics Acute on chronic congestive heart failure (pending echocardiogram) Patient presented fluid overload after IV fluids were administered. Quartered echocardiogram Currently on furosemide IV 20 mg daily Insulin-dependent diabetes mellitus -Uncontrolled (HgbA1c 8.5%) Currently on insulin sliding scale Lantus 30 units and lispro 7 units t.i.d. History of recent left 2nd toe amputation Completed amputation three months before his admission Hypertension Continue with home medication Dyslipidemia Currently on atorvastatin Morbid obesity Gave her advice on healthy lifestyle habits Goals of care discussed with the patient for 20 minutes: Full code status Discussed plan with Dr. Hernandez, patient and nurses: Patient is status post PTCA with balloon to proximal popliteal artery and post left 5th toe amputation. Surgical cultures present Enterococcus faecalis, infectious disease specialist on board who arranged for home health for IV antibiotics for two weeks (vancomycin 1 g IV daily and ertapenem 1 g IV daily). We will discharge patient once home health is arranged. Plan discussed with: Patient, Other (Nurses) My Orders My Orders Orders - DANGELO VILLARREAL RESIDENT Procedure Category Date Status Time Furosemide Tablet PHA 04/27/24 In Process (Lasix Tablet) 10:00 Dietary Evaluation Review Comments: Follow CCHO-60 diet, consider Taj BID, maintain glu WNL Expected Outcomes/Goals: controlled DM, healed wounds, gradual weight loss Addendum Addendum Addendum I was physically present for the joseph portions of the service provided to patient by THE RESIDENT. I have reviewed the documentation, discussed the case with resident and agree with the resident's documentation except as noted. Also the patient's clinical case was discussed with the patient's nurse. This medical document was created using an electronic medical record system with computerized dictation system. Although this document has been carefully reviewed, there might still be some phonetic and typographical errors. These areas are purely typographical due to imperfections of the software programs, and do not reflect any compromise in the patient's medical care. Late signature. Date of Service: Apr 27, 2024 Billing Provider: JOSE HERNANDEZ MD Common Visit Codes: 16281-[id number] INP/OBS CARE(HIGH) Secondary Visit Codes: 46188-FACCCMTD CARE PLAN 30 MINUTES (20 minutes) DANGELO VILLARREAL RESIDENT Apr 27, 2024 22:00 JOSE HERNANDEZ MD Apr 29, 2024 04:46
[2024-04-28] VITALS (7 sets, daily range): BP systolic 108–162; BP diastolic 59–76; PULSE 60–92; RESP 17–20; TEMP 97.6–98.4; O2SAT 90–97
[2024-04-28 07:49] LABS: Basophils # (auto) 0 10 ^3/uL (0-0.2); Basophils % (auto) 0.5 % (0.0-2.0); Eosinophils # (auto) 0.5 10 ^3/uL (0-0.8); Eosinophils % (auto) 6.7 % (0.0-7.0); Hematocrit 45.4 % (41.0-53.0); Hemoglobin 15.4 g/dL (13.5-17.5); Lymphocytes % (auto) 25.6 % (10.0-50.0); Mean Corpuscular Hemoglobin 28.9 pg (28.0-32.0); Mean Corpuscular Volume 85.2 fL (80.0-100.0); Monocytes # (auto) 0.7 10 ^3/uL (0-1.3); Monocytes % (auto) 9.6 % (0.0-12.0); Neutrophils # (auto) 4.4 10 ^3/uL (1.6-8.6); Neutrophils % (auto) 57.6 % (37.0-80.0); Nucleated Red Blood Cells % 0.1 %; Platelet Count (auto) 242 10^3/uL (140-450); Red Blood Cells 5.33 10^6/uL (4.5-5.90); Red Cell Distribution Width 13.3 % (11.8-14.3); White Blood Cell 7.6 10^3/uL (4.4-10.8)
[2024-04-28 08:00] LABS: Chloride 101 mmol/L (98-107); Potassium 4.6 mmol/L (3.5-5.1); Sodium 139 mmol/L (136-145)
[2024-04-28 08:01] LABS: Anion Gap 5 (5-15); Calcium 9.9 mg/dL (8.7-10.4)
[2024-04-28 08:06] LABS: BUN/Creatinine Ratio 23.5 (10.0-20.0)
[2024-04-28 08:11] LABS: Blood Urea Nitrogen 27 mg/dL (9-23); Carbon Dioxide 33 mmol/L (20-31); Glucose 167 mg/dL (74-106)
--- NOTE | 2024-04-28 15:59 | DVHDSRES ---
Discharge Summary Date of Admission Resident Creating Document: VESTA COLON RESIDENT Apr 17, 2024 at 13:18 Date of Discharge: Apr 29, 2024 Admitting Diagnosis chronic left 5th toe wound. Labs/Diagnostic Data: Laboratory Results Test 04/28/24 11:44 04/28/24 07:05 04/26/24 01:51 04/23/24 06:10 POC Glucose 246 mg/dl (70-106) White Blood Count 7.6 10^3/uL (4.4-10.8) Red Blood Count 5.33 10^6/uL (4.5-5.90) Hemoglobin 15.4 g/dL (13.5-17.5) Hematocrit 45.4 % (41.0-53.0) Mean Corpuscular Volume 85.2 fL (80.0-100.0) Mean Corpuscular Hemoglobin 28.9 pg (28.0-32.0) Mean Corpuscular Hemoglobin Concent 34.0 g/dL (32.0-36.0) Red Cell Distribution Width 13.3 % (11.8-14.3) Platelet Count 242 10^3/uL (140-450) Mean Platelet Volume 7.9 fL (6.9-10.8) Neutrophils (%) (Auto) 57.6 % (37.0-80.0) Lymphocytes (%) (Auto) 25.6 % (10.0-50.0) Monocytes (%) (Auto) 9.6 % (0.0-12.0) Eosinophils (%) (Auto) 6.7 % (0.0-7.0) Basophils (%) (Auto) 0.5 % (0.0-2.0) Neutrophils # (Auto) 4.4 10 ^3/uL (1.6-8.6) Lymphocytes # (Auto) 2.0 10 ^3/uL (0.4-5.4) Monocytes # (Auto) 0.7 10 ^3/uL (0-1.3) Eosinophils # (Auto) 0.5 10 ^3/uL (0-0.8) Basophils # (Auto) 0 10 ^3/uL (0-0.2) Nucleated Red Blood Cells 0.1 % Sodium Level 139 mmol/L (136-145) Potassium Level 4.6 mmol/L (3.5-5.1) Chloride Level 101 mmol/L (98-107) Carbon Dioxide Level 33 mmol/L (20-31) Anion Gap 5 (5-15) Blood Urea Nitrogen 27 mg/dL (9-23) Creatinine 1.15 mg/dL (0.700-1.30) Glomerular Filtration Rate Calc 68 mL/min (>90) BUN/Creatinine Ratio 23.5 (10.0-20.0) Serum Glucose 167 mg/dL (74-106) Calcium Level 9.9 mg/dL (8.7-10.4) Vancomycin Level Trough 14.5 ug/mL (5-10) Urine Color Yellow (Yellow) Urine Clarity Clear (Clear) Urine pH 5.0 (5.0-9.0) Urine Specific Kingsley 1.022 (1.001-1.035) Urine Protein 2+ (Negative) Urine Ketones Trace (Negative) Urine Blood Negative /uL (Negative) Urine Nitrite Negative (Negative) Urine Bilirubin Negative (Negative) Urine Urobilinogen Normal mg/dL (Negative) Urine Leukocyte Esterase 2+ /uL (Negative) Urine RBC 4 /hpf (0 - 3) Urine WBC 4 /hpf (0 - 3) Urine Squamous Epithelial Cells Few /hpf (<5) Urine Bacteria None seen /hpf (None Seen) Urine Hyaline Casts Few /lpf (0 - 2) Urine Mucus Few (None Seen) Urine Glucose Normal mg/dL (Normal) Urine Opiates Screen Neg (NEGATIVE) Urine Fentanyl Screen Neg (NEGATIVE) Urine Barbiturates Screen Neg (NEGATIVE) Urine Phencyclidine Screen Neg (NEGATIVE) Urine Amphetamines Screen Neg (NEGATIVE) Urine Benzodiazepines Screen Neg (NEGATIVE) Urine Cocaine Screen Neg (NEGATIVE) Urine Cannabinoids Screen Neg (NEGATIVE) Test 04/23/24 05:17 04/22/24 06:00 04/18/24 05:15 04/17/24 11:14 Total Bilirubin 0.6 mg/dL (0.2-1.0) Aspartate Amino Transferase (AST) 20 U/L (13-40) Alanine Aminotransferase (ALT) 24 U/L (7-40) Alkaline Phosphatase 102 U/L (46-116) Total Protein 7.2 g/dL (5.7-8.2) Albumin 4.2 g/dL (3.2-4.8) Prothrombin Time 11.4 sec (9.3-11.8) Prothrombin Time INR 1.08 (0.9-1.15) Activated Partial Thromboplast Time 28.5 SEC (24.5-34.5) Magnesium Level 1.6 mg/dL (1.6-2.6) Triglycerides Level 181 mg/dL (< 150) Cholesterol Level 109 mg/dL (< 200) LDL Cholesterol 52 mg/dL (< 100) HDL Cholesterol 25 mg/dL (40-59) Vitamin B12 Level 358 pg/mL (211-911) Vitamin D 25-Hydroxy 17.5 ng/mL (30.0-100) Thyroid Stimulating Hormone (TSH) 1.65 uIU/mL (0.55-4.78) Erythrocyte Sedimentation Rate 12 mm/hr (0-20) Hemoglobin A1c 8.5 % A1C (<5.7) Lactic Acid Level 1.8 mmol/L (0.4-2.0) Other Laboratory Tests 04/28/24 07:05 Brief Hx & Hospital Course: Majo BERMUDEZ a 68-year-old [place] Zealander-speaking male with a PMH of type 2 DM, HTN, HLD, 2nd left toe amputation presented to the ED for the evaluation chronic left 5th toe wound. Patient reported, he developed left foot 2nd and 4th toe ulcers 4 months back, operated 2nd toe at that time and on antibiotic for 6-8 weeks but, did not operated on 5th toe. For past 1 month the wound is getting bigger, foul-smelling, mild pain which prompted him to visit ED. on my assessment patient denies fever, nausea, vomiting, chest pain, diaphoresis, shortness of breath, and other associated symptoms. Patient required hospital admission for further evaluation and management of wound. Left lower extremity food CT and x-ray showed 5th proximal and middle phalanx osteomyelitis and Soft tissue swelling compatible with cellulitis. Ordered wound cultures which showed ESBL Enterococcus faecalis, given vancomycin and Zosyn. Podiatric medical social consultant evaluated the patient, advised amputation of the 5th left toe at MPJ with possible metatarsal head resection as deem necessary and recommend angiogram/plasty LLE. Bilateral lower extremity arterial duplex showed findings suggestive of critical limb ischemia, Cardiology consult evaluated the patient and performed successful PTCA to the 1st part of the right popliteal artery using5 x 20 cammy semi compliant balloon on 04/23/2024. Echocardiogram showed LVEF 55% with grade 1 diastolic dysfunction. On 2023 podiatry medical social consultant performed amputation of the 5th left toe at the metatarsophalangeal joint and sensory to the culture. Patient tolerated the procedure well. Culture results showed Enterococcus faecalis, consulted Infectious Disease for antibiotic selection, advised 2 weeks of IV vancomycin 1 g and IV ertapenem 1 g along with weekly CBCs CMP and vancomycin trough. Patient was advised to visit Podiatry in 2 weeks. continuously monitored blood glucose and blood pressure and lab. Patient condition was improved, hemodynamically stable and in condition to be discharged home with optimal medical treatment. Patient was discussed about the plan and agreed to the plan. Patient was advised about healthy lifestyle habits including diet, exercise and to follow up with PCP and Podiatry. Physical exam on April 28, 2024 General Appearance: Alert, Oriented X3, Cooperative, Not in acute distress HEENT: Atraumatic, Mucous membranes moist/pink Respiratory: Clear to auscultation, Normal air movement, No added sounds Cardiovascular: Regular rate, Normal S1, Normal S2, No murmurs Abdominal: Active bowel sounds, Soft, no distention, no tenderness Extremities: partial amputation of left 2nd toe, left 5th toe amputation , covered by dressing Skin: dorsal ulceration on left 5th toe and swelling Neuro: Normal speech, sensorimotor deficits none Psych/Mental Status: Mental status NL, Mood NL The patient could not be discharged as home health for IV antibiotics will be established on April 29, 2024 as per [employer] Case discussed with Dr. Hernandez Consults/Reason for consult Podiatry for diabetic foot ulcer and ID for infected diabetic foot ulcer Operations or Procedures TECHNIQUE: Noncontrast CT of the left foot was performed. Sagittal and coronal reformatted images are provided. IMPRESSION: 1. 5th proximal and middle phalanx osteomyelitis. Soft tissue swelling compatible with cellulitis. BILATERAL Lower Extremity Arterial Duplex IMPRESSION: 1. Biphasic waveform throughout the right lower extremity except in the posterior tibial and dorsalis pedis in which they are monophasic. 2. biphasic on triphasic waveform throughout the left lower extremity. Monophasic waveform in the left posterior tibial artery and dorsalis pedis. Low flow in the left dorsalis pedis all 8 centimeters/second. TECHNIQUE: 3 radiographic views of the left foot were obtained. Comparison: None FINDINGS/IMPRESSION: ablation of the left 2nd toe.. Osteoporotic and severe bone loss to the proximal phalanx of the left 5th toe and distal phalanx of the left 5th toe consistent with osteomyelitis. Other toes may be involved suggest MRI for further evaluation. The visualized joint space is well maintained. The alignment is anatomical. There is no radiopaque foreign body. ECHO Conclusion Well-preserved left ventricular systolic function estimated ejection fraction 55%. There is a grade 1 diastolic dysfunction. Normal right ventricular size and dimension. Normal right ventricular systolic function. Operative Report - 2 Report Details Date: 04/24/24 Preop Diagnosis: Osteomyelitis, necrosis, ulceration with exposed bone 5th left toe Postop Diagnosis: The same with necrotic tissue necrotic osteomyelitic mushy bone noted to the 5th left toe Peripheral angiography was done via retrograde approach utilizing right femoral arterial access under ultrasound guidance. There was a critical stenosis involving the proximal part of the 1st part of the popliteal artery on the right side. There was a complete occlusion of the anterior tibial artery which reconstitutes distally by the tibioperoneal trunk. Patient underwent successful PTCA to the proximal popliteal artery stenosis using5 x 20 cammy balloon to12 atmospheric pressure with excellent final result. Surgeon: Chele Lynch, MAYELA, MHA, MS, [facility] Anesthesiologist: Dr. James MD Anesthesia: Local Consent: The patient was informed of the risks and benefits of the procedure. These include but are not limited to complications of anesthesia, postoperative infection, incomplete relief of symptoms, recurrence of symptoms, damage to blood vessels, nerves and tendons, deep venous thrombosis, pulmonary embolism and possible need for repeat surgery in the future. Name of Procedure Performed Amputation of the 5th left toe at the metatarsophalangeal joint Procedure Details Procedure Details: The patient was brought to the operating room placed on the operating table in the supine position. After MAC anesthesia was achieved three deep cultures were taken from the wound of the 5th left toe and sent to pathology as a specimen. The left foot and leg was then prepped and draped in the proper aseptic manner. Attention was now directed to procedure 1. Procedure 1. Amputation of the 5th left toe at the metatarsophalangeal joint: After topographical markings to ensure proper flap closure and incision was made by means of sharp and blunt dissection with care being taken to preserve all underlying vital structures. All bleeders were bovied or ligated as necessary. At this time the 5th left toe was noted to be with very mushy soft osteomyelitic bone and necrosis however, the toe was disarticulated at the metatarsophalangeal joint without incident and sent to pathology as specimen. 1000 cc normal saline 1 g of Ancef was used to irrigate the wound without incident was aspirated no debris was noted. Deep tissue was closed 3-0 Vicryl suture subcuticular cyst 4- 0 Vicryl suture skin with 3-0 nylon suture. Approximately 20 cc of 0.5% ropivacaine plain was injected in a local infiltration fashion for long-term postop anesthesia. Surgical dressing consisted of bacitracin ointment Xeroform 4x4s Kerlix and Alexandro bandage to yield a mildly compressive type bandage. Is important to note that the patient was prophylaxed 2 g of IV Ancef prior to surgery. Patient has a PICC line which he will use for long-term IV antibiotic regimen for approximately 4-6 weeks. Patient tolerated the procedure well left the operating recovery room in stable condition. There were no intraoperative complications. Specimen: bone, Toe Report Details Date: 04/23/24 Preop Diagnosis: Left leg critical limb ischemia with the current open wounds ulcer difficult to heal. Postop Diagnosis: Peripheral angiography was done via retrograde approach utilizing right femoral arterial access under ultrasound guidance. There was a critical stenosis involving the proximal part of the 1st part of the popliteal artery on the right side. There was a complete occlusion of the anterior tibial artery which reconstitutes distally by the tibioperoneal trunk. Patient underwent successful PTCA to the proximal popliteal artery stenosis using5 x 20 cammy balloon to12 atmospheric pressure with excellent final result. Surgeon: Micky Beasley MD Anesthesiologist: Conscious sedation using25 mcg of fentanyl as well as a mg IV midazolam. Patient was observed for total of35 minutes without obvious complication. Anesthesia: Local Consent: The patient was informed of the risks and benefits of the procedure. These include but are not limited to complications of anesthesia, postoperative infection, incomplete relief of symptoms, recurrence of symptoms, damage to blood vessels, nerves and tendons, deep venous thrombosis, pulmonary embolism and possible need for repeat surgery in the future. Indications for Surgery: This is a 68-year-old male who presented to the emergency room with a chief complaint of wound care. The patient reports he developed a diabetic ulcer to his left 5th toe progressively getting worse draining fluid with foul smell and paresthesia. Reports he has been on oral antibiotics for over a week with no improvement of symptoms. He underwent a food CT revealing 5th proximal and middle phalanx osteomyelitis. The patient also underwent a bilateral arterial duplex revealing [id number] peripheral arterial disease. Significant medical history includes hypertension, dyslipidemia, insulin-dependent diabetes mellitus, and recent left 2nd toe amputation three months ago. Name of Procedure Performed 1. Ultrasound-guided right femoral arterial access. 2. Selective right lower limb peripheral angiography. 3. Successful PTCA to proximal popliteal artery stenosis using5 x 20 cammy semi compliant balloon. 4. Successful closure of right femoral arterial access using six Macanese Angio- Seal system. Procedure Details Procedure Details: Procedure note and vascular access: After informed consent was obtained, risks, benefits, complications, and alternatives were discussed in details with the patient who agrees to have the procedure done. At the beginning of the procedure, the right groin area were prepped and draped in the regular sterile fashion as well as the left groin area. An attempted ipsilateral access was done using micropuncture sheath but due to severe pannus puncture site was below the bifurcation of the SFA and profunda artery. For which procedure was omitted and vascular access was switched to the right femoral arterial access. This was done under ultrasound guidance. Six Macanese sheath was then placed without difficulty. This was exchanged then after crossover was made with a45 cm destination sheath the detail of the procedure were as follows: 1. Ultrasound-guided right femoral arterial access, six Macanese sheath was placed, then a rim catheter was used to engage the bifurcation of the aortoiliac junction, an angled stiff Glidewire was used to cross the aortoiliac bifurcation and it was advanced all the way to the right common femoral artery. 2. The six Macanese sheath was exchanged for a45 cm destination sheath with a dilator. And then a cine right femoral angiography was performed findings were as follows: 1. Widely patent common iliac artery on the right side the bifurcates into external iliac and internal iliac artery. 2. The external iliac artery continues as the common femoral artery, it has no significant atherosclerotic plaquing or stenosis. 3. The common femoral artery bifurcates into a large right superficial femoral artery and right profunda artery. 4. The right superficial femoral artery has mild irregularity of the proximal bed but no significant stenosis was noted. 5. The right femoral profunda artery is free of any significant stenosis or diseases. 6. The proximal popliteal artery has focal stenosis at 80% on the right side. 7. The distal popliteal artery bifurcates into a tibioperoneal trunk as well as anterior tibial artery. 8. The right anterior tibial artery is completely occluded in the proximal segment, the vessel is reconstitute distally via the tibioperoneal trunk. 9. The tibioperoneal trunk bifurcates into a posterior tibial artery as well as peroneal artery. 10. The posterior tibial artery continues as the deep plantar arch into the lateral aspect of the foot provides digital branches. 11. The deep peroneal artery is free of any significant diseases. 3. Successful PTCA to the 1st part of the right popliteal artery using5 x 20 cammy semi compliant balloon: With the help of 300 cm 0.14 Wire we were able to cross the popliteal artery to the tibioperoneal trunk. Percutaneous transluminal angioplasty was then performed using a5 x 20 cammy semi compliant balloon with excellent final result. There is a dramatic improvement in the distal runoff flow of the tibioperoneal trunk. Including the collateral to the anterior tibial artery. No attempt was made to open the anterior tibial artery as it reconstitute distally by the tibioperoneal system. 4. Successful closure of the right femoral arteriotomy site using six Macanese Angio-Seal, this was done after the destination sheath was retracted over the wire, then a six Macanese sheath was placed before Angio-Seal was deployed without difficulty with good hemostasis. 5. Anticoagulation during the procedure was made using continuous IV valve bivalirudin. Impression and plan: 1. Critical limb ischemia secondary to diffuse disease involving the proximal popliteal as well as the distal anterior tibial artery. Patient has successful PTCA to the proximal popliteal artery using5 x 20 cammy balloon. 2. There is complete occlusion of the anterior tibial artery with reconstitution of the vessel distally by the tibioperoneal vessels including the posterior tibial and the right deep peroneal artery. 3. There is improvement in the distal runoff after the popliteal artery stenosis is treated. Hopefully this will provide better distal flow to the distal limb. 4. Patient would need aggressive medical therapy as well as wound care and antibiotic coverage for his infection of the left foot. I would recommend regular follow-up with a dictating machine transcriber, and frequent deployment. . Condition at Discharge: Stable Final Diagnosis/Problems List # Osteomyelitis 5th left toe status post amputation # chronic nonhealing diabetic ulcer 5th left toe with possible cellulitis # Peripheral vascular disease moderate to severe status post PTCA # Critical limb ischemia secondary to PAD status post PTCA # Acute respiratory failure likely hypoxic- improved # uncontrolled type 2 DM with HbA1c 8.5 # uncontrolled hypertension # HLD # morbid obesity with a BMI 42.8 # S/P amputation 2nd left toe with intact sutures. Discharge Disposition: Home with Health Services Discharge Instruct/Medications Diet: Consistent carbohydrate, Cardiac 2g Na,low cholest Activity: No Restrictions, As Tolerated Follow Up/Referral: PCP within 1 week weekly labs cbc with diff, cmp and esr and vancomycin trough. fax it to [phone] ID f/u with ID/ podiatry in 2 weeks Medications: arrange IV Vancomycin 1g daily for 2 weeks, goal trough 10-15. IV ertapenem 1g daily for 2 weeks. Discharge Statement: "Patient was advised to return to the ER or call 911 if any headaches, dizziness, shortness of breath, chest pain, abdominal pain, bleeding, fevers, or worsening of medical condition. Patient was counseled about treatment plan, medications, possible side effects, patientverbalized understanding. All questions were answered to the best of my ability. This discharge took greater then 30 minutes in planning, reviewing documentation, counseling the patient, and discussing with other team members." ASSESSMENT ASSESSMENT Assessment # Osteomyelitis 5th left toe status post amputation # chronic nonhealing diabetic ulcer 5th left toe with possible cellulitis # Peripheral vascular disease moderate to severe status post PTCA Addendum Addendum Addendum I was physically present for the joseph portions of the service provided to patient by THE RESIDENT. I have reviewed the documentation, discussed the case with resident and agree with the resident's documentation except as noted. Also the patient's clinical case was discussed with the patient's nurse. This medical document was created using an electronic medical record system with computerized dictation system. Although this document has been carefully reviewed, there might still be some phonetic and typographical errors. These areas are purely typographical due to imperfections of the software programs, and do not reflect any compromise in the patient's medical care. Late signature. Date of Service: Apr 28, 2024 Billing Provider: JOSE HERNANDEZ MD Common Visit Codes: [id number] INP/OBS CARE(HIGH) VESTA COLON RESIDENT Apr 28, 2024 15:59 JOSE HERNANDEZ MD Apr 29, 2024 04:52
--- NOTE | 2024-04-28 16:14 | DVHPN2 ---
Progress Note - Dictate Date Seen: Apr 28, 2024 Medical Necessity Reason Pt with a Central, PICC or Fol: Yes The following are medically ne: PICC Line Subjective [facility]Pt is set for DC but will get medications tomorrow. Patient is on 2 LPM oxygen via nasal canula. No S/S of distress/SOB or pain. Initial superficial culture is growing ESBL and Enterococcus faecalis. Patient is seen by Podiatry who amputated history of toe on 04/24 04/26, Vancomycin trough: 14.5. Review of his imaging showed Foot CT revealed: 5th proximal and middle phalanx osteomyelitis. Bilateral arterial duplex revealed: [id number] peripheral arterial disease. vital signs Vital Sign Date Time Temp Pulse Resp B/P (MAP) Pulse Ox O2 Delivery O2 Flow Rate FiO2 04/28/24 12: 98.4 63 18 136/61 (86) 93 98.4 04/28/24 08:00 Nasal Cannula* 2 28 Total Intake and Output 04/27/24 04/27/24 04/28/24 15:00 23:00 07:00 Intake Total 300 ml 600 ml Output Total 300 ml 500 ml Balance 300 ml 300 ml -500 ml medications Current Medications Medications Dose Ordered Sig/Debi Route Start Time Stop Time Status Last Admin Dose Admin Vancomycin HCl 0 ml @ 0 mls/hr UD IV 04/17/24 13:30 Ondansetron HCl 4 mg Q4HP PRN IV 04/17/24 13:30 Docusate Sodium 100 mg BIDPRN PRN PO 04/17/24 13:30 Zinc Sulfate 220 mg DAILY PO 04/18/24 10:00 04/28/24 11:06 220 MG Ascorbic Acid 500 mg BID PO 04/17/24 22:00 04/28/24 11:05 500 MG Multivitamins 1 tab DAILY PO 04/18/24 10:00 04/28/24 11:04 1 TAB Acetaminophen 650 mg Q6HP PRN PO 04/17/24 13:30 Aspirin 81 mg DAILY PO 04/18/24 10:00 04/28/24 11:05 81 MG Atorvastatin Calcium 40 mg HS PO 04/18/24 22:00 04/27/24 21:35 40 MG Amlodipine Besylate 10 mg DAILY PO 04/18/24 10:00 04/28/24 11:05 10 MG Valsartan 320 mg DAILY PO 04/18/24 10:00 04/28/24 11:05 320 MG Insulin Glargine 30 units QAM SC 04/19/24 07:00 04/28/24 05:51 30 UNITS Insulin Human Lispro 7 units TID SC 04/18/24 14:15 04/28/24 14:00 7 UNITS Sodium Chloride 10 ml QSHIFT@10,22 IV 04/18/24 22:00 04/28/24 11:03 10 ML Diagnostic Test (Pha) 1 strip ACHS 04/18/24 17:00 04/28/24 11:42 1 STRIP Insulin Human Regular HS SC 04/18/24 22:00 04/27/24 21:34 6 UNITS Insulin Human Regular AC SC 04/18/24 17:00 04/28/24 11:57 6 UNITS Dextrose 50 ml UD PRN IV 04/18/24 16:00 Ertapenem 1 gm/ Sodium Chloride 50 ml @ 100 mls/hr DAILY IV 04/21/24 10:00 04/28/24 11:02 100 MLS/HR Rivaroxaban 2.5 mg BID PO 04/24/24 22:00 04/28/24 11:06 2.5 MG Rivaroxaban 2.5 mg BID PO 04/25/24 10:00 UNV Vancomycin HCl 250 ml @ 250 mls/hr Q16H IV 04/25/24 11:00 04/28/24 02:34 250 MLS/HR Furosemide 20 mg DAILY PO 04/27/24 10:00 04/28/24 11:04 20 MG objective General Appearance: Alert, Oriented X3, Cooperative, No acute distress HEENT: Atraumatic, PERRLA, EOMI, Mucous membr. moist/pink Respiratory: Clear to auscultation, Normal air movement Cardiovascular: Regular rate, Normal S1, Normal S2, No murmurs Abdominal: Normal bowel sounds, Soft, No tenderness, No hepatospenomegaly, No masses Extremities: No cyanosis, status post 2nd and 5th toe amputation Neuro: Normal gait, Normal speech, Strength at 5/5 X4 ext, Normal tone Psych/Mental Status: Mental status NL, Mood NL laboratory and microbiology Laboratory Tests 04/28/24 07:05 Test 04/28/24 07:05 Range/Units Serum Glucose 167 H 74-106 mg/dL Assessment/Plan Patient is a 68-year-old male presents to the hospital with: Osteomyelitis of left foot 5th toe History of left second toe amputation Diabetes mellitus Recommendations: s/p 5th toe amputation Current antibiotics: IV Vancomycin and ertapenem; continue 04/26, trough level 14.5 04/17, Blood culture: No growth monitored 04/18, Wound culture: Escherichia coli - ESBL and Enterococcus faecalis (superficial cultures) 04/23; OR cx prelim no growth: enterococcus ; still prelim reviewed Repeat x-ray of left foot to know the extent of amputation: based on comparing previous CT/ xray of foot. all osteomyelitis part prox and distal phalanx is amputated. anticipating two weeks arrange IV Vancomycin 1g daily for 2 weeks, goal trough 10-15. IV ertapenem 1g daily for 2 weeks. weekly labs cbc with diff, cmp and esr and vancomycin trough. fax it to [phone] f/u with ID/ podiatry in 2 weeks Reviewed Chest x-ray, Foot x-ray, Foot CT and Duplex scan lower extremity artery Thank you for consult and for giving an opportunity to take care of this patient. Dietary Evaluation Review Comments: Follow CCHO-60 diet, consider Taj BID, maintain glu WNL Expected Outcomes/Goals: controlled DM, healed wounds, gradual weight loss KATI SALTER MD Apr 28, 2024 16:14
[2024-04-29 01:00] VITALS: BP 115/58; PULSE 60; RESP 17; TEMP 97.9; O2SAT 93
[2024-04-29 05:00] VITALS: BP 120/79; PULSE 70; RESP 17; TEMP 98.7; O2SAT 93
--- NOTE | 2024-04-29 08:54 | DVHPNRES ---
Progress Note Date Seen: Apr 29, 2024 Resident Creating Document: VESTA COLON RESIDENT Medical Necessity Reason Pt with a Central, PICC or Fol: Yes The following are medically ne: PICC Line Subjective Review of Systems Majo BERMUDEZ a 68-year-old Yakut-speaking male with a PMH of type 2 DM, HTN, HLD, 2nd left toe amputation presented to the ED for the evaluation chronic left 5th toe wound. Patient seen and examined at the bedside. Patient reported no active complaints. Held discharge yesterday for antibiotics. Discharge can be expected in next 12 hours Home health antibiotics arranged from today onwards. Patient reports: No new complaints, Feels better Objective vital signs Vital Sign Date Time Temp Pulse Resp B/P (MAP) Pulse Ox O2 Delivery O2 Flow Rate FiO2 04/29/24 05:00 98.7 70 17 120/79 (93) 93 98.7 04/28/24 20:00 Nasal Cannula* 2 28 Total Intake and Output 04/28/24 04/28/24 04/29/24 15:00 23:00 07:00 Intake Total 50 ml 750 ml 900 ml Output Total 900 ml 1250 ml 1700 ml Balance -850 ml -500 ml -800 ml medications Current Medications Medications Dose Ordered Sig/Debi Route Start Time Stop Time Status Last Admin Dose Admin Ondansetron HCl 4 mg Q4HP PRN IV 04/17/24 13:30 Docusate Sodium 100 mg BIDPRN PRN PO 04/17/24 13:30 Zinc Sulfate 220 mg DAILY PO 04/18/24 10:00 04/28/24 11:06 220 MG Ascorbic Acid 500 mg BID PO 04/17/24 22:00 04/28/24 21:55 500 MG Multivitamins 1 tab DAILY PO 04/18/24 10:00 04/28/24 11:04 1 TAB Acetaminophen 650 mg Q6HP PRN PO 04/17/24 13:30 Aspirin 81 mg DAILY PO 04/18/24 10:00 04/28/24 11:05 81 MG Atorvastatin Calcium 40 mg HS PO 04/18/24 22:00 04/28/24 21:55 40 MG Amlodipine Besylate 10 mg DAILY PO 04/18/24 10:00 04/28/24 11:05 10 MG Valsartan 320 mg DAILY PO 04/18/24 10:00 04/28/24 11:05 320 MG Insulin Glargine 30 units QAM SC 04/19/24 07:00 04/29/24 06:21 30 UNITS Insulin Human Lispro 7 units TID SC 04/18/24 14:15 04/28/24 21:59 7 UNITS Sodium Chloride 10 ml QSHIFT@10,22 IV 04/18/24 22:00 04/28/24 21:11 10 ML Diagnostic Test (Pha) 1 strip ACHS 04/18/24 17:00 04/29/24 06:22 1 STRIP Insulin Human Regular HS SC 04/18/24 22:00 04/28/24 21:57 6 UNITS Insulin Human Regular AC SC 04/18/24 17:00 04/28/24 17:00 3 UNITS Dextrose 50 ml UD PRN IV 04/18/24 16:00 Ertapenem 1 gm/ Sodium Chloride 50 ml @ 100 mls/hr DAILY IV 04/21/24 10:00 04/28/24 11:02 100 MLS/HR Rivaroxaban 2.5 mg BID PO 04/24/24 22:00 04/28/24 22:08 2.5 MG Rivaroxaban 2.5 mg BID PO 04/25/24 10:00 UNV Vancomycin HCl 250 ml @ 250 mls/hr Q16H IV 04/25/24 11:00 04/28/24 18:51 250 MLS/HR Furosemide 20 mg DAILY PO 04/27/24 10:00 04/28/24 11:04 20 MG Examination General Appearance: Alert, Oriented X3, Cooperative, Not in acute distress HEENT: Atraumatic, Mucous membranes moist/pink Respiratory: Clear to auscultation, Normal air movement, No added sounds Cardiovascular: Regular rate, Normal S1, Normal S2, No murmurs Abdominal: Active bowel sounds, Soft, no distention, no tenderness Extremities: partial amputation of left 2nd toe, left 5th toe amputation , covered by dressing Skin: dorsal ulceration on left 5th toe and swelling Neuro: Normal speech, sensorimotor deficits none Psych/Mental Status: Mental status NL, Mood NL laboratory and microbiology Laboratory Tests 04/28/24 07:05 Test 04/28/24 07:05 Range/Units Serum Glucose 167 H 74-106 mg/dL Microbiology Date/Time Source Procedure Growth Status 04/24/24 09:50 Foot Gram Stain - Final Resulted 04/24/24 09:50 Foot Anaerobic Culture - Preliminary Resulted 04/24/24 09:50 Aerobic Culture - Final Enterococcus faecalis Resulted 04/17/24 11:14 Blood Blood Culture - Final NO GROWTH AFTER 5 DAYS OF INCUBATION. 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 - Wound cultures, showing g negative rods ESBL& Enterococcus faecalis so, Currently on Invanz and vancomycin - Podiatric configuration consultant evaluated the patient, advised amputation of the 5th left toe at MPJ with possible metatarsal head resection today - S/P Amputation of the 5th left toe at the metatarsophalangeal joint, cultures sent - currently on aspirin and Lipitor - ECHO showed left ventricular systolic function estimated ejection fraction 55%. There is a grade 1 diastolic dysfunction - Consulted Infectious Disease for antibiotic selection advised Vancomycin and ertapenem for 2 weeks # Critical limb ischemia secondary to PAD status post PTCA - diffuse disease involving the proximal popliteal as well as the distal anterior tibial artery. - S/P successful PTCA to the proximal popliteal artery using5 x 20 cammy balloon. # Acute respiratory failure likely hypoxic- improved -Indicated IV diuretics # uncontrolled type 2 DM with HbA1c 8.5 - currently on ISS - Lantus 30 units and lispro 7 units t.i.d. # uncontrolled hypertension - continuously monitor - resume home meds # HLD - currently on Lipitor # morbid obesity with a BMI 42.8 - counseled on lifestyle modifications including diet and exercise # S/P amputation 2nd left toe with intact sutures. Lovenox for now No GI PPX cardiac and diabetic diet after procedure Reconciled home meds Goals of care discussed with the patient and familyfor more than 27 minutes: Full code status Case management discussed with Dr. Hinds, patient , family and nurse. Plan discussed with: Patient My Orders My Orders Orders - VESTA COLON RESIDENT Procedure Category Date Status Time Discharge DISCHARGE 04/28/24 Transmitted 12:47 Schedule For Dc MEJIA 04/28/24 In Process Clinic F/U 12:47 Dietary Evaluation Review Comments: Follow CCHO-60 diet, consider Taj BID, maintain glu WNL Expected Outcomes/Goals: controlled DM, healed wounds, gradual weight loss Date of Service: Apr 29, 2024 Billing Provider: LILLIAN HINDS MD Common Visit Codes: [id number] INP/OBS CARE(HIGH) ISAIAHGLENDYKALA RESIDENT Apr 29, 2024 08:54 LILLIAN HINDS MD Apr 29, 2024 19:54
== END 2024-04-29 09:30 | disposition home health service (06) | DRG 616 ==
LOC: ER 10:45 → OVERFLOW 13:18 → CENTRAL 23:38 → EAST 04-18 17:44
PROVIDERS: ADMIT Internal Medicine Geriatric Medicine; ATTEND Internal Medicine Geriatric Medicine
PROC: 02HV33Z Insertion of Infusion Device into Superior Vena Cava, Percutaneous Approach (ICD-10-PCS; 2024-04-18)
PROC: B548ZZA Ultrasonography of Superior Vena Cava, Guidance (ICD-10-PCS; 2024-04-18)
PROC: 047M3ZZ Dilation of Right Popliteal Artery, Percutaneous Approach (ICD-10-PCS; 2024-04-23)
PROC: B41FYZZ Fluoroscopy of Right Lower Extremity Arteries using Other Contrast (ICD-10-PCS; 2024-04-23)
PROC: 0Y6Y0Z0 Detachment at Left 5th Toe, Complete, Open Approach (ICD-10-PCS; principal; 2024-04-24 09:26)
DX: E11.69 Type 2 diabetes mellitus with other specified complication (principal); J96.01 Acute respiratory failure with hypoxia; L03.116 Cellulitis of left lower limb; Z68.41 Body mass index [BMI] 40.0-44.9, adult; M86.8X7 Other osteomyelitis, ankle and foot; E11.51 Type 2 diabetes mellitus with diabetic peripheral angiopathy without gangrene; E11.621 Type 2 diabetes mellitus with foot ulcer; E66.01 Morbid (severe) obesity due to excess calories; E78.5 Hyperlipidemia, unspecified; L97.529 Non-pressure chronic ulcer of other part of left foot with unspecified severity; I11.0 Hypertensive heart disease with heart failure; I50.9 Heart failure, unspecified; Z89.422 Acquired absence of other left toe(s); Z79.4 Long term (current) use of insulin; Z79.82 Long term (current) use of aspirin
CPT/HCPCS: 36415; 36569; 37224; 71045; 73620; 73630; 73700; 75710; 80048; 80053; 80061; 80202; 80307; 81001; 82306; 82607; 82962; 83036; 83605; 83735; 84443; 85025; 85610; 85652; 85730; 86850; 86900; 86901; 87040; 87070; 87075; 87077; 87186; 87205; 93306; 93925; 99152; 99291; C1894; G0378; J0690; J1335; J1815; J2250; J2405; J2543; J2704; Q9967

== ENCOUNTER 2024-08-05 13:59 | Inpatient (IN) | payer MEDICARE, MEDICAID ==
[~2024-08-05] VITALS: Ht 167.6 cm; Wt 108.4 kg
[2024-08-05] MEDS: SODIUM CHLORIDE 0.9% 1,000 ML IV ONE ×2 (14:30)
[2024-08-05] MEDS: PIPERACILLIN-TAZOB 3.375GM 100 ML IV ONE (14:30)
--- NOTE | 2024-08-05 14:32 | ED.PDOC ---
History of Present Illness HPI Comments 68M presents to the ER w/ no prior Hx associated to the c/c of a wound check. Pt reports on having a wound on his 4th digit of his left extremity. The wound has white discharge w/ a foul smell. PMHx of DM and HTN. SHx of Amputation of the 5th digit on the left foot x2 months ago at [facility]. Denies chills, fever, N/V/D, SOB, CP or no other associated symptom's, modifiers, recent injuries or sick contacts at this time. Chief Complaint: Wound Check Time Seen by MD: 14:30 Primary Care Provider: unknown Reviewed Notes: Nurses Notes, Medications, Allergies Allergies: Coded Allergies: No Known Drug Allergy (Verified Allergy, Unknown, 04/17/24) Home Meds Unable to Obtain Active Prescriptions or Reported Meds Information Source: Patient Mode of Arrival: Ambulatory Severity: Moderate Timing: Came on: Gradually Duration: Since onset Prehospital treatment: None Past Medical History PAST MEDICAL HISTORY: DM, HTN Surgical History (Other): Amputation of the 5th digit on the left foot x2 months at [facility] Family History Family History: Reviewed,noncontributory to illness, Unknown Social History Smoker: Non-Smoker Alcohol: Denies ETOH Use Drugs: Denies Drug Use Lives In: Home Constitutional: reports: others (Wound check); denies: chills, diaphoresis, fatigue, fever, malaise, sweats, weakness EENTM: denies: blurred vision, double vision, ear bleeding, ear discharge, ear drainage, ear pain, ear ringing, eye pain, eye redness, hearing loss, mouth p ain, mouth swelling, nasal discharge, nose bleeding, nose congestion, nose pain, photophobia, tearing, throat pain, throat swelling, voice changes, others Respiratory: denies: cough, hemoptysis, orthopnea, SOB at rest, shortness of br eath, SOB with excertion, stridor, wheezing, others Cardiovascular: denies: chest pain, dizzy spells, diaphoresis, Dyspnea on exertion, edema, irregular heart beat, left arm pain, lightheadedness, palpitations, PND, syncope, others Gastrointestinal: denies: abdomen distended, abdominal pain, blood streaked bowels, constipated, diarrhea, dysphagia, difficulty swallowing, hematemesis, melena, nausea, poor appetite, poor fluid intake, rectal bleeding, rectal pain, vomiting, others Genitourinary: denies: burning, dysuria, flank pain, frequency, hematuria, incontinence, penile discharge, penile sore, pain, testicle pain, testicle swelling, urgency, others Neurological: denies: dizziness, fainting, headache, left sided numbness, left sided weakness, numbness, paresthesia, pre-existing deficit, right sided numbness, right sided weakness, seizure, speech problems, tingling, tremors, weakness, others Musculoskeletal: denies: back pain, gout, joint pain, joint swelling, muscle pain, muscle stiffness, neck pain, others Integumetry: denies: bruises, change in color, change in hair/nails, dryness, laceration, lesions, lumps, rash, wounds, others Allergic/Immunocompromised: denies: Difficulty Healing, Frequent Infections, Hives, Itching, others Hematologic/Lymphatic: denies: anemia, blood clots, easy bleeding, easy bruising, swollen glands, others Endocrine: denies: excessive hunger, excessive sweating, excessive thirst, excessive urination, flushing, intolerance to cold, intolerance to heat, unexplained weight gain, unexplained weight loss, others Psychiatric: denies: anxiety, bipolar disorder, depression, hopeless, panic disorder, schizophrenia, sleepless, suicidal, others All Other Systems: Reviewed and Negative Physical Exam General Appearance: Moderate Distress, Normal HEENT: Normal ENT Inspection, Pharynx Normal, TMs Normal Neck: Full Range of Motion, Non-Tender, Normal, Normal Inspection Respiratory: Chest Non-Tender, Lungs Clear, No Accessory Muscle Use, No Respiratory Distress, Normal Breath Sounds Cardiovascular: No Edema, No JVD, No Murmur, No Gallop, Normal Peripheral Pulses, Regular Rate/Rhythm Breast Exam: Deferred Gastrointestinal: No Organomegaly, Non Tender, No Pulsatile Mass, Normal Bowel Sounds, Soft Genitalia: Deferred Pelvic: Deferred Rectal: Deferred Extremities: No calf tenderness, Normal capillary refill, Normal inspection, Normal range of motion, Non-tender, No pedal edema Musculoskeletal : Apperance: Normal Neurologic: Alert, automation engineer II-XII nml as Tested, No Motor Deficits, Normal Affect, Normal Mood, No Sensory Deficits Cerebellar Function: NOT DONE Reflexes: NOT DONE Skin: Dry, Normal Color, Warm, Wounds (Left foot) Peripheral Pulses: 3+ Radial (R), 3+ Radial (L) Lymphatic: No Adenopathy Was a procedure done? Was a procedure done?: No Differential Dx Considerations may include: Osteomyelitis Electrolyte imbalance X-Ray, Labs, Meds, VS Vital Signs Date Time Temp Pulse Resp B/P (MAP) Pulse Ox O2 Delivery O2 Flow Rate FiO2 08/05/24 14:10 97.6 81 19 143/58 (86) 93 97.6 Lab Test 08/05/24 14:56 08/05/24 14:06 Range/Units White Blood Count 8.8 4.4-10.8 10^3/uL Red Blood Count 5.19 4.5-5.90 10^6/uL Hemoglobin 15.1 13.5-17.5 g/dL Hematocrit 43.6 41.0-53.0 % Mean Corpuscular Volume 84.0 80.0-100.0 fL Mean Corpuscular Hemoglobin 29.2 28.0-32.0 pg Mean Corpuscular Hemoglobin Concent 34.7 32.0-36.0 g/dL Red Cell Distribution Width 14.1 11.8-14.3 % Platelet Count 233 140-450 10^3/uL Mean Platelet Volume 7.6 6.9-10.8 fL Neutrophils (%) (Auto) 62.7 37.0-80.0 % Lymphocytes (%) (Auto) 25.2 10.0-50.0 % Monocytes (%) (Auto) 7.2 0.0-12.0 % Eosinophils (%) (Auto) 4.1 0.0-7.0 % Basophils (%) (Auto) 0.8 0.0-2.0 % Neutrophils # (Auto) 5.5 1.6-8.6 10 ^3/uL Lymphocytes # (Auto) 2.2 0.4-5.4 10 ^3/uL Monocytes # (Auto) 0.6 0-1.3 10 ^3/uL Eosinophils # (Auto) 0.4 0-0.8 10 ^3/uL Basophils # (Auto) 0.1 0-0.2 10 ^3/uL Nucleated Red Blood Cells 0.2 % Sodium Level 140 136-145 mmol/L Potassium Level 5.0 3.5-5.1 mmol/L Chloride Level 107 98-107 mmol/L Carbon Dioxide Level 27 20-31 mmol/L Anion Gap 6 5-15 Blood Urea Nitrogen 26 H 9-23 mg/dL Creatinine 1.33 H 0.700-1.30 mg/dL Glomerular Filtration Rate Calc 58 >90 mL/min BUN/Creatinine Ratio 19.5 10.0-20.0 Serum Glucose 224 H 74-106 mg/dL Calcium Level 9.6 8.7-10.4 mg/dL POC Glucose 191 H 70-106 mg/dl Patient alert. Has a wound in the left foot. Vitals stable. Answering questions. Blood sugar elevated. WBC within normal limits. Establish intravenous access. Was given fluids. Was given Zosyn. Was given clindamycin. Podiatric consultation. Reviewed his history. Explained to the patient. Continue cardiac monitoring. Time of 1ST Reevaluation: 15:00 Reevaluation 1ST: Unchanged Patient Education/Counseling: Diagnosis, Treatment, Prognosis Family Education/Counseling: No Family Present Departure 1 Departure Time of Disposition: 15:45 Impression: Primary Impression: Foot osteomyelitis, left Qualified Codes: M86.9 - Osteomyelitis, unspecified Disposition: ADMITTED INPATIENT Admit to: Med Surg Condition: Guarded e-Prescriptions Unable to Obtain Active Prescriptions or Reported Meds Critical Care Note Critical Care Time?: No Stability Stability form required: No Heart Score Heart Score: Heart Score Response (Comments) Value History N/A 0 EKG N/A 0 Age N/A 0 Risk Factors N/A 0 Troponin N/A 0 Total 0 I personally scribed for HANNAH AGUILAR MD ([email or web address]) on 08/05/24 at 14:32. Electronically submitted by Dusty Mcintosh ([email or web address]). HANNAH AGUILAR MD Aug 05, 2024 14:32
[2024-08-05 15:05] LABS: Basophils # (auto) 0.1 10 ^3/uL (0-0.2); Basophils % (auto) 0.8 % (0.0-2.0); Eosinophils # (auto) 0.4 10 ^3/uL (0-0.8); Eosinophils % (auto) 4.1 % (0.0-7.0); Hematocrit 43.6 % (41.0-53.0); Hemoglobin 15.1 g/dL (13.5-17.5); Lymphocytes # (auto) 2.2 10 ^3/uL (0.4-5.4); Lymphocytes % (auto) 25.2 % (10.0-50.0); Mean Corpuscular Hemoglobin 29.2 pg (28.0-32.0); Mean Corpuscular Hgb Conc. 34.7 g/dL (32.0-36.0); Monocytes # (auto) 0.6 10 ^3/uL (0-1.3); Monocytes % (auto) 7.2 % (0.0-12.0); Neutrophils # (auto) 5.5 10 ^3/uL (1.6-8.6); Neutrophils % (auto) 62.7 % (37.0-80.0); Nucleated Red Blood Cells % 0.2 %; Platelet Count (auto) 233 10^3/uL (140-450); Red Blood Cells 5.19 10^6/uL (4.5-5.90); Red Cell Distribution Width 14.1 % (11.8-14.3); White Blood Cell 8.8 10^3/uL (4.4-10.8)
[2024-08-05 15:11] LABS: Chloride 107 mmol/L (98-107); Sodium 140 mmol/L (136-145)
--- NOTE | 2024-08-05 15:11 | DVH ---
EXAMINATION: CT CT L FOOT WO CONTRAST INDICATION: osteo COMPARISON: CT CT L FOOT WO CONTRAST on DOS: 04/17/24 TECHNIQUE: CT of the left foot was performed without contrast. Volume transverse images were obtained reconstructed in multiple planes using bone and soft tissue algorithms. CONTRAST: 0 CTV IV 0 L equals 8 mg Y. Total exam DLP equals 234 M Gy per cm FINDINGS: The alignment is normal. The joint spaces are normal. There is no fracture, dislocation, or focal osseous lesions. There are no joint effusions. The soft tissues are normal. IMPRESSION: 1. Postsurgical changes consistent with plain films of 04/24/2024. No fracture No osteomyelitis MRI recommended for further assessment if clinical symptoms persist 1 cm retrocalcaneal spur.
[2024-08-05 15:12] LABS: Anion Gap 6 (5-15); Calcium 9.6 mg/dL (8.7-10.4); Carbon Dioxide 27 mmol/L (20-31)
[2024-08-05 15:17] LABS: BUN/Creatinine Ratio 19.5 (10.0-20.0)
[2024-08-05 15:19] LABS: Blood Urea Nitrogen 26 mg/dL (9-23); Glucose 224 mg/dL (74-106)
[2024-08-05 16:30] VITALS: PULSE 67; RESP 16; O2SAT 96
[2024-08-05 17:11] LABS: Urine Bacteria None Seen /hpf (None Seen)
[2024-08-05 17:25] LABS: Urine Blood Negative /uL (Negative); Urine Clarity Clear (Clear); Urine Color Light-Yellow (Yellow); Urine Mucus FEW (None Seen); Urine Protein, UAD 1+ (Negative); Urine Specific Gravity 1.014 (1.001-1.035); Urine Squamous Epithelial Cell FEW /hpf (<5); Urine Urobilinogen Normal (Negative); Urine WBC 16 /HPF (0-3); Urine pH 5.5 (5.0-9.0)
[2024-08-05] MEDS: CLINDAMYCIN 600MG IV 50 ML IV ONE (18:56)
[2024-08-05] MEDS ORDERED: ONDANSETRON HCL 4 MG/2 ML VIAL IV PRN (19:30)
[2024-08-05] MEDS ORDERED: DEXTROSE (50%) 50ML SYRG IV PRN (19:30)
--- NOTE | 2024-08-05 20:47 | DVHHP2 ---
History of Present Illness Reason for Visit: Left foot wound History of Present Illness 68-year-old male presents for evaluation of left foot wound. Patient reports a wound to his left 4th digit that has been going on for more than a month. He has also noticed redness surrounding wound. Denies fever or chills. No other acute complaints reported. Past Medical History Hypertension and diabetes mellitus Past Surgical History Amputation left 5th digit Family History Noncontributory Smoke: No ALCOHOL: none Drugs: None Lives: with Family Review of Systems Review of Systems Review of systems are currently negative otherwise addressed in HPI. Allergies: Coded Allergies: No Known Drug Allergy (Verified Allergy, Unknown, 04/17/24) Medications Current Medications Medications Dose Ordered Sig/Debi Route Start Time Stop Time Status Last Admin Dose Admin Ceftriaxone Sodium 50 ml @ 100 mls/hr DAILY@09 IV 08/06/24 09:00 Clindamycin Phosphate 50 ml @ 50 mls/hr Q8HR IV 08/05/24 22:00 Amlodipine Besylate 10 mg DAILY PO 08/06/24 10:00 Valsartan 320 mg DAILY PO 08/06/24 10:00 Atorvastatin Calcium 40 mg HS PO 08/05/24 22:00 Hydrochlorothiazide 12.5 mg DAILY PO 08/06/24 10:00 Diagnostic Test (Pha) 1 strip Q6HR 08/06/24 00:00 Insulin Human Regular Q6HR SC 08/06/24 00:00 Dextrose 50 ml UD PRN IV 08/05/24 19:30 Ondansetron HCl 4 mg Q4HP PRN IV 08/05/24 19:30 Exam Vital Signs Vital Signs Date Time Temp Pulse Resp B/P (MAP) Pulse Ox O2 Delivery O2 Flow Rate FiO2 08/05/24 16:30 97.8 67 16 134/57 (82) 96 97.8 08/05/24 16:30 Room Air* 0 21 Exam Gen: 68-year-old male in mild distress, obese Skin: Warm, dry, normal color and texture, no rash. HEENT: Normocephalic atraumatic, mucous membranes moist and pink. Neck: Cervical and supraclavicular nodes normal without enlargement, trachea is midline, thyroid gland is normal without masses. Pulmonary: Clear to auscultation and percussion bilaterally. Cardiac: Regular rate and rhythm. No murmur Abdomen: Soft, nontender, nondistended, bowel sounds present all 4 quadrants, no guarding, no rigidity, no organomegaly. Extremities: No cyanosis, clubbing, left foot wound Neuro: Cranial nerves II through XII grossly intact, normal affect and speech, no focal motor deficits. Labs/Xrays ORDERING PHYSICIAN: HANNAH AGUILAR MD PROCEDURE(s): LFTCT - CT L FOOT WO CONTRAST REASON: osteo ORDER NUMBER(s): [id number], ACCESSION NUMBER(s): [id number] EXAMINATION: CT CT L FOOT WO CONTRAST INDICATION: osteo COMPARISON: CT CT L FOOT WO CONTRAST on DOS: 04/17/24 TECHNIQUE: CT of the left foot was performed without contrast. Volume transverse images were obtained reconstructed in multiple planes using bone and soft tissue algorithms. CONTRAST: 0 CTV IV 0 L equals 8 mg Y. Total exam DLP equals 234 M Gy per cm FINDINGS: The alignment is normal. The joint spaces are normal. There is no fracture, dislocation, or focal osseous lesions. There are no joint effusions. The soft tissues are normal. IMPRESSION: 1. Postsurgical changes consistent with plain films of 04/24/2024. No fracture No osteomyelitis MRI recommended for further assessment if clinical symptoms persist 1 cm retrocalcaneal spur. ATED BY: AMANDA HEIN MD DICTATED DATE/TIME: 08/05/24 1509 Labs Test 08/05/24 17:10 08/05/24 14:56 08/05/24 14:06 Range/Units Urine Color Light-yellow Yellow Urine Clarity Clear Clear Urine pH 5.5 5.0-9.0 Urine Specific [place] 1.014 1.001-1.035 Urine Protein 1+ H Negative Urine Ketones Negative Negative Urine Blood Negative Negative /uL Urine Nitrite Negative Negative Urine Bilirubin Negative Negative Urine Urobilinogen Normal Negative mg/dL Urine Leukocyte Esterase 3+ Negative /uL Urine RBC 1 0 - 3 /hpf Urine Microscopic WBC 16 H 0-3 /HPF Urine Squamous Epithelial Cells Few <5 /hpf Urine Bacteria None seen None Seen /hpf Urine Mucus Few None Seen Urine Glucose 3+ H Normal mg/dL White Blood Count 8.8 4.4-10.8 10^3/uL Red Blood Count 5.19 4.5-5.90 10^6/uL Hemoglobin 15.1 13.5-17.5 g/dL Hematocrit 43.6 41.0-53.0 % Mean Corpuscular Volume 84.0 80.0-100.0 fL Mean Corpuscular Hemoglobin 29.2 28.0-32.0 pg Mean Corpuscular Hemoglobin Concent 34.7 32.0-36.0 g/dL Red Cell Distribution Width 14.1 11.8-14.3 % Platelet Count 233 140-450 10^3/uL Mean Platelet Volume 7.6 6.9-10.8 fL Neutrophils (%) (Auto) 62.7 37.0-80.0 % Lymphocytes (%) (Auto) 25.2 10.0-50.0 % Monocytes (%) (Auto) 7.2 0.0-12.0 % Eosinophils (%) (Auto) 4.1 0.0-7.0 % Basophils (%) (Auto) 0.8 0.0-2.0 % Neutrophils # (Auto) 5.5 1.6-8.6 10 ^3/uL Lymphocytes # (Auto) 2.2 0.4-5.4 10 ^3/uL Monocytes # (Auto) 0.6 0-1.3 10 ^3/uL Eosinophils # (Auto) 0.4 0-0.8 10 ^3/uL Basophils # (Auto) 0.1 0-0.2 10 ^3/uL Nucleated Red Blood Cells 0.2 % Sodium Level 140 136-145 mmol/L Potassium Level 5.0 3.5-5.1 mmol/L Chloride Level 107 98-107 mmol/L Carbon Dioxide Level 27 20-31 mmol/L Anion Gap 6 5-15 Blood Urea Nitrogen 26 H 9-23 mg/dL Creatinine 1.33 H 0.700-1.30 mg/dL Glomerular Filtration Rate Calc 58 >90 mL/min BUN/Creatinine Ratio 19.5 10.0-20.0 Serum Glucose 224 H 74-106 mg/dL Calcium Level 9.6 8.7-10.4 mg/dL POC Glucose 191 H 70-106 mg/dl Assessment/Plan Assessment/Plan Assessment Left foot wound with cellulitis Uncontrolled diabetes mellitus Acute kidney injury Hypertension Morbid obesity Plan Admit the patient [facility] to the hospitalist Rocephin/clindamycin Wound culture pending Continue treatment per orders. Plan discussed with: Patient My Orders Orders - KELSI BURRIS Procedure Category Date Status Time Ceftriaxone 1gm/50ml PHA 08/06/24 In Process D5w (Rocephin) 09:00 Clindamycin 600mg Iv PHA 08/05/24 In Process (Cleocin Iv) 22:00 Amlodipine Tablet PHA 08/06/24 In Process (Norvasc Tablet) 10:00 Valsartan (Diovan) PHA 08/06/24 In Process 10:00 Atorvastatin (Lipitor) PHA 08/05/24 In Process 22:00 Hydrochlorothiazide PHA 08/06/24 In Process Tablet (Hydrochlorot 10:00 Glucose Blood PHA 08/06/24 In Process (Accu-Chek Comfort 00:00 Insulin R (Human) PHA 08/06/24 In Process (Insulin R) 00:00 Dextrose 50% Syringe PHA 08/05/24 In Process 19:30 Admit ADMIT 08/05/24 Transmitted 19:30 Ondansetron Hcl PHA 08/05/24 In Process (Zofran) 19:30 Complete Blood Count LAB 08/06/24 Verified 04:00 Cardiac DIET 08/06/24 Transmitted Diet-2gna,Lofat,Lochol Breakfast Condition: Stable MEJIA 08/05/24 In Process 19:30 Bedrest With Bathroom MEJIA 08/05/24 In Process Privileg 19:30 Podiatry Consult CONS 08/05/24 Transmitted 19:46 Date of Service: Aug 05, 2024 Billing Provider: KELSI BURRIS Common Visit Codes: [id number] INP/OBS CARE (MOD) KELSI BURRIS Aug 05, 2024 20:47
[2024-08-05] MEDS: ATORVASTATIN 20 MG TAB PO SCH (22:09)
[2024-08-05] MEDS: CLINDAMYCIN 600MG IV 50 ML IV SCH (22:09)
[2024-08-06] VITALS (7 sets, daily range): BP systolic 104–126; BP diastolic 40–61; PULSE 55–68; RESP 18–19; TEMP 97.6–98.5; O2SAT 90–97
[2024-08-06] MEDS: ACCU-CHEK COMFORT CURVE STRIP VI SCH
[2024-08-06] MEDS: InsuLIN REG 1unit/0.01ml Soln (100units/ml) SC SCH
[2024-08-06 07:02] LABS: Basophils # (auto) 0 10 ^3/uL (0-0.2); Basophils % (auto) 0.5 % (0.0-2.0); Eosinophils # (auto) 0.4 10 ^3/uL (0-0.8); Eosinophils % (auto) 4.3 % (0.0-7.0); Hematocrit 41.7 % (41.0-53.0); Hemoglobin 14.7 g/dL (13.5-17.5); Lymphocytes # (auto) 2.2 10 ^3/uL (0.4-5.4); Lymphocytes % (auto) 23.2 % (10.0-50.0); Mean Corpuscular Hemoglobin 29.6 pg (28.0-32.0); Mean Corpuscular Hgb Conc. 35.2 g/dL (32.0-36.0); Mean Corpuscular Volume 83.9 fL (80.0-100.0); Monocytes # (auto) 0.8 10 ^3/uL (0-1.3); Monocytes % (auto) 8.5 % (0.0-12.0); Neutrophils % (auto) 63.5 % (37.0-80.0); Nucleated Red Blood Cells % 0.1 %; Platelet Count (auto) 228 10^3/uL (140-450); Red Blood Cells 4.97 10^6/uL (4.5-5.90); Red Cell Distribution Width 14.4 % (11.8-14.3); White Blood Cell 9.4 10^3/uL (4.4-10.8)
[2024-08-06] MEDS ORDERED: VALSARTAN 80 MG TAB PO SCH (10:00)
[2024-08-06] MEDS: cefTRIAXone 1GM/50ML D5W 50 ML IV SCH (10:16)
[2024-08-06] MEDS: amLODIPine BESYLATE 5 MG TAB PO SCH (10:17)
[2024-08-06] MEDS: hydroCHLOROthiazide 25 MG TAB PO SCH (10:19)
--- NOTE | 2024-08-06 11:02 | DVHINCON2 ---
Date of service: Aug 06, [address] Dale MD Reason for Consultation Osteomyelitis left 4th toe. History of Present Illness The patient had been under my care for treatment of long standing ulceration to the dorsal aspect of the 4th left toe. Recent visit to my office shoed bone exposure, MRI performed which indicated presence of osteomyelitis 4th left toe involving the proximal, middle and distal phalanx. The patient has had a recent angiogram/plasty here at [facility] at the time of his previous 5th left toe amputation. The patient has a history of diabetes, HTN, high lipids. THe patient denies any new complaints. Past Medical History DM II HTN High lipids PVD Past Surgical History Amputation of the 5th left toe at [facility]. Chronic non-healing ulceration 4th left toe with recent diagnosis of osteomyelitis. Family History: Diabetes mellitus G8 MOTHER Family History Reviewed and is non-contributory to management of this case. Social History Denies alcohol, tobacco, or illicit drug use. lives at home with family. Allergies: Coded Allergies: No Known Drug Allergy (Verified Allergy, Unknown, 04/17/24) Home Meds Unable to Obtain Active Prescriptions or Reported Meds Current Medications Current Medications Medications (Trade) Dose Ordered Sig/Debi Route PRN Reason Start Time Stop Time Status Last Admin Ceftriaxone Sodium 50 ml @ 100 mls/hr DAILY@09 IV 08/06/24 09:00 08/06/24 10:16 Clindamycin Phosphate 50 ml @ 50 mls/hr Q8HR IV 08/05/24 22:00 08/06/24 05:14 Amlodipine Besylate (Norvasc Tablet) 10 mg DAILY PO 08/06/24 10:00 08/06/24 10:17 Valsartan (Diovan) 320 mg DAILY PO 08/06/24 10:00 08/06/24 08:20 DC Atorvastatin Calcium (Lipitor) 40 mg HS PO 08/05/24 22:00 08/05/24 22:09 Hydrochlorothiazide (hydroCHLOROthiazide TABLET) 12.5 mg DAILY PO 08/06/24 10:00 08/06/24 10:19 Diagnostic Test (Pha) (Accu-Chek Comfort Curve T) 1 strip Q6HR 08/06/24 00:00 08/06/24 05:19 Insulin Human Regular (InsuLIN R) Q6HR SC 08/06/24 00:00 08/06/24 00:00 Dextrose 50 ml UD PRN IV Blood Sugar LESS THAN 60 08/05/24 19:30 Ondansetron HCl (Zofran) 4 mg Q4HP PRN IV NAUSEA / VOMITING 08/05/24 19:30 Review of Systems Review of systems are currently negative otherwise addressed in HPI. Vital Signs Vital Signs Date Time Temp Pulse Resp B/P (MAP) Pulse Ox O2 Delivery O2 Flow Rate FiO2 08/06/24 10:19 118/55 08/06/24 09:00 98.3 55 19 97 98.3 08/06/24 06:19 Room Air* 0 21 Physical Exam Gen: 68-year-old male in mild distress, obese Skin: Warm, dry, normal color and texture, no rash. HEENT: Normocephalic atraumatic, mucous membranes moist and pink. Neck: Cervical and supraclavicular nodes normal without enlargement, trachea is midline, thyroid gland is normal without masses. Pulmonary: Clear to auscultation and percussion bilaterally. Cardiac: Regular rate and rhythm. No murmur Abdomen: Soft, nontender, nondistended, bowel sounds present all 4 quadrants, no guarding, no rigidity, no organomegaly. Extremities: No cyanosis, clubbing, left foot wound, with bone exposure to the 4th left toe consistent with osteomyelitis. VASC: Dp/PT 2/4 bilaterally, CFT 3 seconds bilaterally. Erythema and edema is noted to the 4th left toe. Neuro: Cranial nerves II through XII grossly intact, normal affect and speech, no focal motor deficits. Labs/Diagnostic Data Labs Test 08/06/24 06:08 08/06/24 05:06 08/05/24 17:10 08/05/24 14:56 Range/Units White Blood Count 9.4 4.4-10.8 10^3/uL Red Blood Count 4.97 4.5-5.90 10^6/uL Hemoglobin 14.7 13.5-17.5 g/dL Hematocrit 41.7 41.0-53.0 % Mean Corpuscular Volume 83.9 80.0-100.0 fL Mean Corpuscular Hemoglobin 29.6 28.0-32.0 pg Mean Corpuscular Hemoglobin Concent 35.2 32.0-36.0 g/dL Red Cell Distribution Width 14.4 H 11.8-14.3 % Platelet Count 228 140-450 10^3/uL Mean Platelet Volume 7.9 6.9-10.8 fL Neutrophils (%) (Auto) 63.5 37.0-80.0 % Lymphocytes (%) (Auto) 23.2 10.0-50.0 % Monocytes (%) (Auto) 8.5 0.0-12.0 % Eosinophils (%) (Auto) 4.3 0.0-7.0 % Basophils (%) (Auto) 0.5 0.0-2.0 % Neutrophils # (Auto) 6.0 1.6-8.6 10 ^3/uL Lymphocytes # (Auto) 2.2 0.4-5.4 10 ^3/uL Monocytes # (Auto) 0.8 0-1.3 10 ^3/uL Eosinophils # (Auto) 0.4 0-0.8 10 ^3/uL Basophils # (Auto) 0 0-0.2 10 ^3/uL Nucleated Red Blood Cells 0.1 % POC Glucose 105 70-106 mg/dl Urine Color Light-yellow Yellow Urine Clarity Clear Clear Urine pH 5.5 5.0-9.0 Urine Specific [employer] 1.014 1.001-1.035 Urine Protein 1+ H Negative Urine Ketones Negative Negative Urine Blood Negative Negative /uL Urine Nitrite Negative Negative Urine Bilirubin Negative Negative Urine Urobilinogen Normal Negative mg/dL Urine Leukocyte Esterase 3+ Negative /uL Urine RBC 1 0 - 3 /hpf Urine Microscopic WBC 16 H 0-3 /HPF Urine Squamous Epithelial Cells Few <5 /hpf Urine Bacteria None seen None Seen /hpf Urine Mucus Few None Seen Urine Glucose 3+ H Normal mg/dL Sodium Level 140 136-145 mmol/L Potassium Level 5.0 3.5-5.1 mmol/L Chloride Level 107 98-107 mmol/L Carbon Dioxide Level 27 20-31 mmol/L Anion Gap 6 5-15 Blood Urea Nitrogen 26 H 9-23 mg/dL Creatinine 1.33 H 0.700-1.30 mg/dL Glomerular Filtration Rate Calc 58 >90 mL/min BUN/Creatinine Ratio 19.5 10.0-20.0 Serum Glucose 224 H 74-106 mg/dL Calcium Level 9.6 8.7-10.4 mg/dL Assessment Osteomyelitis 4th left toe. Chronic non-healing ulceration 4th left toe. Cellulitis, erythema, edema 4th left toe. Plan/Recommendation Discussed again treatment options with the patient ranging from conservative to surgical intervention. Pros and cons, risks and benefits fully discussed. Surgery was opted consisting of amputation of the 4th left toe at [facility]. The patient has had recent revascularization to his LLE at [facility]. Orders: NPO after midnight tonight. Consent for Amputation of the 4th left toe. PICC line consult for IV therapy 4-6 weeks. All questions and concerns were answered to the patient's satisfaction. Thank you for your consultation. Plan discussed with: Patient CIPRIANO HORNER DPM Aug 06, 2024 11:01
[2024-08-06] MEDS ORDERED: VANCOMYCIN PER PHARMACY 0 MG IV SCH (11:45)
[2024-08-06] MEDS ORDERED: MORPHINE SULFATE INJ 2 MG/ml SYRG IV PRN (11:45)
[2024-08-06] MEDS: SODIUM CHLORIDE 0.9% 1,000 ML IV SCH (11:45)
[2024-08-06] MEDS ORDERED: ACETAMINOPHEN 325 MG TAB PO PRN (11:45)
--- NOTE | 2024-08-06 11:53 | DVHPN2 ---
Progress Note Date Seen: Aug 06, 2024 Medical Necessity Reason Pt with a Central, PICC or Fol: No Subjective Patient reports: No new complaints Review of Systems: HEENT:Normal, CVS:Normal, RESPIRATORY:Normal, GI:Normal, :Normal, MSK:Normal, NEURO:Normal Objective vital signs Vital Sign Date Time Temp Pulse Resp B/P (MAP) Pulse Ox O2 Delivery O2 Flow Rate FiO2 08/06/24 10:19 118/55 08/06/24 09:00 98.3 55 19 97 98.3 08/06/24 06:19 Room Air* 0 21 Total Intake and Output 08/05/24 08/05/24 08/06/24 15:00 23:00 07:00 Intake Total 1200 ml 50 ml Balance 1200 ml 50 ml medications Current Medications Medications Dose Ordered Sig/Debi Route Start Time Stop Time Status Last Admin Dose Admin Ceftriaxone Sodium 50 ml @ 100 mls/hr DAILY@09 IV 08/06/24 09:00 08/06/24 10:16 100 MLS/HR Clindamycin Phosphate 50 ml @ 50 mls/hr Q8HR IV 08/05/24 22:00 08/06/24 05:14 50 MLS/HR Amlodipine Besylate 10 mg DAILY PO 08/06/24 10:00 08/06/24 10:17 10 MG Atorvastatin Calcium 40 mg HS PO 08/05/24 22:00 08/05/24 22:09 40 MG Hydrochlorothiazide 12.5 mg DAILY PO 08/06/24 10:00 08/06/24 10:19 12.5 MG Diagnostic Test (Pha) 1 strip Q6HR 08/06/24 00:00 08/06/24 05:19 1 STRIP Insulin Human Regular Q6HR SC 08/06/24 00:00 08/06/24 00:00 2 UNITS Dextrose 50 ml UD PRN IV 08/05/24 19:30 Ondansetron HCl 4 mg Q4HP PRN IV 08/05/24 19:30 Examination: GENERAL:Normal, HEENT:Normal, NECK:Normal, LUNGS:Normal, CVS:Normal, ABDOMEN:Normal, MSK:Normal, MSK:Abnormal (left foot cellulitis, s/p toe amputation), SKIN:Normal, NEURO:Normal, :Normal laboratory and microbiology Laboratory Tests 08/06/24 06:08 08/05/24 14:56 Test 08/05/24 14:56 Range/Units Serum Glucose 224 H 74-106 mg/dL Problem List/Assessment/Plan Problem List/Assessment/Plan #1 left foot osteo: iv antibiotics, surg in am #2 dm: ssi #3 htn #4 uti: urine culture #5 acute renal failure ?vasomotor nephropathy: ivf #6 obesity advance care planning- full code- time spent 19 mins Plan discussed with: Patient My Orders My Orders Orders - KELSI JAIN MD Procedure Category Date Status Time *Podiatry Consult Dr. LORA 08/06/24 Transmitted Cris 09:43 Date of Service: Aug 06, 2024 Billing Provider: KELSI JAIN MD Common Visit Codes: [id number] INP/OBS CARE(HIGH) Secondary Visit Codes: [id number] CARE PLAN 30 MINUTES KELSI JAIN MD Aug 06, 2024 11:53
[2024-08-06] MEDS: ERTAPENEM SOD INJ 1 GM in SODIUM CHL 0.9% 50 ML IV ONE (13:07)
[2024-08-06 13:55] LABS: INR 1.03 (0.9-1.15); Partial Thromboplastin Time 27.9 SEC (24.5-34.5); Prothrombin Time 10.9 sec (9.3-11.8)
--- NOTE | 2024-08-06 14:39 | DVH ---
CHEST RADIOGRAPH Indication: htn Technique: Single frontal view of the chest was obtained COMPARISON: XY CHEST XRAY 1 VIEW on DOS: 04/21/24 FINDINGS: Lines and Tubes: None Lungs: Mild congestion Pleura: No effusion. No pneumothorax. Cardiomediastinal contours: Cardiomegaly Bones: Unremarkable IMPRESSION: Mild pulmonary vascular congestion
[2024-08-06] MEDS: VANCOMYCIN 1.5GM/300ML 300 ML IV ONE (16:33)
[2024-08-06] MEDS: LIDOCAINE 1% (LOCAL ANESTH.) PF 5ml SDV ID ONE (17:30)
[2024-08-06] MEDS: SODIUM CHLOR 0.9% PF (SALINE LOCK) 10ML VIAL/SYR IV SCH (21:22)
[2024-08-07] VITALS (8 sets, daily range): BP systolic 103–138; BP diastolic 42–63; PULSE 58–69; RESP 17–20; TEMP 97.7–98.5; O2SAT 90–99
[2024-08-07 05:42] LABS: Basophils # (auto) 0 10 ^3/uL (0-0.2); Basophils % (auto) 0.6 % (0.0-2.0); Eosinophils # (auto) 0.3 10 ^3/uL (0-0.8); Eosinophils % (auto) 4.4 % (0.0-7.0); Hematocrit 41.6 % (41.0-53.0); Hemoglobin 14.2 g/dL (13.5-17.5); Lymphocytes # (auto) 1.7 10 ^3/uL (0.4-5.4); Lymphocytes % (auto) 22.1 % (10.0-50.0); Mean Corpuscular Hemoglobin 28.7 pg (28.0-32.0); Mean Corpuscular Hgb Conc. 34.2 g/dL (32.0-36.0); Mean Corpuscular Volume 84.1 fL (80.0-100.0); Monocytes # (auto) 0.7 10 ^3/uL (0-1.3); Monocytes % (auto) 8.8 % (0.0-12.0); Neutrophils # (auto) 4.8 10 ^3/uL (1.6-8.6); Neutrophils % (auto) 64.1 % (37.0-80.0); Nucleated Red Blood Cells % 0.1 %; Platelet Count (auto) 220 10^3/uL (140-450); Red Blood Cells 4.95 10^6/uL (4.5-5.90); Red Cell Distribution Width 14.5 % (11.8-14.3); White Blood Cell 7.6 10^3/uL (4.4-10.8)
[2024-08-07 05:59] LABS: Alanine Aminotransferase 20 U/L (7-40); Albumin 4.2 g/dL (3.2-4.8); Alkaline Phosphatase 88 U/L (46-116); Anion Gap 5 (5-15); Aspartate Aminotransferase 16 U/L (13-40); BUN/Creatinine Ratio 17.9 (10.0-20.0); Blood Urea Nitrogen 22 mg/dL (9-23); Calcium 9.6 mg/dL (8.7-10.4); Carbon Dioxide 30 mmol/L (20-31); Chloride 105 mmol/L (98-107); Potassium 4.4 mmol/L (3.5-5.1); Sodium 140 mmol/L (136-145); Total Protein 6.8 g/dL (5.7-8.2)
[2024-08-07 06:00] LABS: Bilirubin, Total 0.5 mg/dL (0.2-1.0)
[2024-08-07] MEDS ORDERED: fentaNYL CITRATE 100 MCG/2 ML VL ONE (06:04)
[2024-08-07] MEDS ORDERED: ceFAZolin 1GM VL ONE (06:04)
[2024-08-07] MEDS ORDERED: MIDAZOLAM HCL 2MG/2ML 2ml VIAL (1mg/ml) ONE (06:04)
[2024-08-07 06:16] LABS: Glucose 131 mg/dL (74-106)
[2024-08-07] MEDS ORDERED: ONDANSETRON HCL 4 MG/2 ML VIAL ONE (06:20)
[2024-08-07] MEDS ORDERED: METOCLOPRAMIDE HCL 5MG/ml INJ 2ml VIAL ONE (06:20)
[2024-08-07] MEDS: ROPIVACAINE 0.5% (5MG/ML) 20ML AMPULE IJ ONE (07:31)
[2024-08-07] MEDS: BACITRACIN TOP OINT 1 UD PKG TOP ONE (07:48)
--- NOTE | 2024-08-07 07:57 | DVHOP2 ---
Operative Report - 2 Report Details Date: 08/07/24 Preop Diagnosis: Painful chronic nonhealing ulceration 4th left toe Osteomyelitis involving the distal middle and proximal phalanx 4th left toe Postop Diagnosis: Same with necrotic soft tissue necrotic bone noted to the 4th left toe Surgeon: Chele Lynch, VIKM, MHA, MS, DABMSP Head Of Precision Targeting: NONE Anesthesiologist: Eze Padron CRNA Anesthesia: General Consent: The patient was informed of the risks and benefits of the procedure. These include but are not limited to complications of anesthesia, postoperative infection, incomplete relief of symptoms, recurrence of symptoms, damage to blood vessels, nerves and tendons, deep venous thrombosis, pulmonary embolism and possible need for repeat surgery in the future. Name of Procedure Performed Amputation of the 4th left toe at the metatarsophalangeal joint Procedure Details Procedure Details: The patient was brought to the operating room placed on the operating table in the supine position. After general anesthesia was achieved the left foot and leg was prepped and draped in the proper aseptic manner. Attention was now directed to procedure 1. Procedure 1. Amputation of the 4th left toe at the metatarsophalangeal joint: After topographical markings to ensure proper flap closure incision was made by means of sharp and blunt dissection with care being taken to preserve all underlying vital structures, all bleeders were bovied or ligated as necessary. Deep dissection was carried down to bone at this 0.3 deep cultures were taken and sent to pathology for analysis. The 4th left toe was disarticulated at the metatarsophalangeal joint without incident. And sent to pathology as a specimen. Area was lavaged with 1000 cc normal saline 1 g of Ancef and it was aspirated no debris was noted. At this time, deep closure was anastomosed utilizing 3-0 Vicryl suture, subcuticular cyst 4-0 Vicryl suture, and skin with 4-0 nylon suture. Prior to surgical dressings approximately 10 cc of 0.5% ropivacaine plain was injected in a local infiltration fashion for long-term postoperative anesthesia. Surgical dressings consisted of bacitracin ointment Xeroform 4x4s Kerlix and an Alexandro bandage to yield a mildly compressive type bandage. There were no intra op complications the patient left the operating recovery room in stable condition. The patient was prophylaxed with 2 g of Ancef prior to surgery. Patient given strict instructions to ambulate in the postoperative shoe only not one step without. Patient has a PICC line for a regimen of IV antibiotics of 4-6 weeks as well. Patient would be followed up at my office upon discharge from the hospital as well. Specimen: TOE 4ht left Condition Good Disposition Still a Patient CHELE LYNCH DPM Aug 07, 2024 07:57
[2024-08-07] MEDS ORDERED: fentaNYL CITRATE 100 MCG/2 ML VL IV PRN (08:15)
[2024-08-07] MEDS ORDERED: ONDANSETRON HCL 4 MG/2 ML VIAL IV ONE (08:15)
[2024-08-07] MEDS: ERTAPENEM SOD INJ 1 GM in SODIUM CHL 0.9% 50 ML IV SCH (09:46)
--- NOTE | 2024-08-07 11:03 | DVHPN2 ---
Progress Note Date Seen: Aug 07, 2024 Medical Necessity Reason Pt with a Central, PICC or Fol: No Subjective Patient reports: No new complaints Review of Systems: HEENT:Normal, CVS:Normal, RESPIRATORY:Normal, GI:Normal, :Normal, MSK:Normal, NEURO:Normal Objective vital signs Vital Sign Date Time Temp Pulse Resp B/P (MAP) Pulse Ox O2 Delivery O2 Flow Rate FiO2 08/07/24 09:45 120/52 08/07/24 09:26 97.7 58 18 93 97.7 08/07/24 08:40 Nasal Cannula 3.0 08/06/24 20:00 28 Total Intake and Output 08/06/24 08/06/24 08/07/24 15:00 23:00 07:00 Intake Total 50 ml 1290 ml 340 ml Balance 50 ml 1290 ml 340 ml medications Current Medications Medications Dose Ordered Sig/Debi Route Start Time Stop Time Status Last Admin Dose Admin Amlodipine Besylate 10 mg DAILY PO 08/06/24 10:00 08/07/24 09:45 10 MG Atorvastatin Calcium 40 mg HS PO 08/05/24 22:00 08/06/24 21:21 40 MG Diagnostic Test (Pha) 1 strip Q6HR 08/06/24 00:00 08/07/24 05:21 1 STRIP Insulin Human Regular Q6HR SC 08/06/24 00:00 08/06/24 23:54 2 UNITS Dextrose 50 ml UD PRN IV 08/05/24 19:30 Ondansetron HCl 4 mg Q4HP PRN IV 08/05/24 19:30 Vancomycin HCl 0 ml @ 0 mls/hr UD IV 08/06/24 11:45 Ertapenem 1 gm/ Sodium Chloride 50 ml @ 100 mls/hr DAILY IV 08/07/24 10:00 08/07/24 09:46 100 MLS/HR Sodium Chloride 1,000 ml @ 60 mls/hr [id number] IV 08/06/24 11:45 08/07/24 05:22 60 MLS/HR Morphine Sulfate 2 mg Q4HPRN PRN IV 08/06/24 11:45 Acetaminophen/ Hydrocodone Bitart 1 tab Q6HPRN PRN PO 08/06/24 11:45 Acetaminophen 650 mg Q6HP PRN PO 08/06/24 11:45 Sodium Chloride 10 ml QSHIFT@10,22 IV 08/06/24 22:00 08/07/24 09:45 10 ML Examination: GENERAL:Normal, HEENT:Normal, NECK:Normal, LUNGS:Normal, CVS:Normal, ABDOMEN:Normal, MSK:Normal, MSK:Abnormal (LEFT FOOT DRESSING), SKIN:Normal, NEURO:Normal, :Normal laboratory and microbiology Laboratory Tests 08/07/24 05:04 Test 08/07/24 05:04 Range/Units Serum Glucose 131 H 74-106 mg/dL Problem List/Assessment/Plan Problem List/Assessment/Plan #1 left foot osteo: iv antibiotics, s/p surg #2 dm: ssi #3 htn #4 uti: urine culture #5 acute renal failure ?vasomotor nephropathy: ivf #6 obesity advance care planning- full code- time spent 19 mins Plan discussed with: Patient My Orders My Orders Orders - KELSI JAIN MD Procedure Category Date Status Time Vancomycin Per PHA 08/06/24 In Process Pharmacy 11:45 Ertapenem Sod Inj PHA 08/07/24 In Process (Invanz) 10:00 Wound Culture W/ Gs DIO 08/06/24 In Process 11:45 Sodium Chloride 0.9% PHA 08/06/24 In Process 11:45 Morphine Sulfate PHA 08/06/24 In Process Injection 11:45 Hydrocodone-Acet PHA 08/06/24 In Process 5/325mg Tab ([place] 11:45 Acetaminophen Tablet PHA 08/06/24 In Process (Tylenol Tablet) 11:45 Urine Bacterial DIO 08/06/24 In Process Culture 11:51 Chest Portable XY 08/06/24 Resulted 11:53 Apply Barrier Cream MEJIA 08/06/24 In Process 10:43 Change Dressing Prn MEJIA 08/06/24 In Process 17:27 Sodium Chloride Lock PHA 08/06/24 In Process (Saline Lock Ns) 22:00 Do Not Use Picc For MEJIA 08/06/24 In Process Blood Cult 17:27 May Draw Blood From MEJIA 08/06/24 In Process Picc 17:27 Ok To Use Picc MEJIA 08/06/24 In Process 17:27 Change Picc Dressing MEJIA 08/06/24 In Process Q7 Days 17:27 Us Guided Vascular US 08/06/24 Taken Access 17:27 Electrocardigram EKG 08/06/24 Logged 23:23 Date of Service: Aug 07, 2024 Billing Provider: KELSI JAIN MD Common Visit Codes: [id number] INP/OBS CARE(HIGH) KELSI JAIN MD Aug 07, 2024 11:03
--- NOTE | 2024-08-07 12:57 | ECG ---
[facility] Test Date: 2024-08-06 Test Time: 23:39:32 Pat Name: [facility] Department: Respiratoy Room: 0234 A Gender: M [employer] Machine Operator: MEENU : 1955 Requested By: KELSI JAIN Order Number: [id number] Reading MD: Raghu Minor Measurements Intervals [place] Rate: 62 P: -8 SD: 302 QRS: 12 QRSD: 89 T: 35 QT: 430 QTc: 437 Interpretive Statements Sinus rhythm Prolonged SD interval Low voltage, precordial leads Consider anterior infarct Electronically Signed On 08-07-2024 22:28:12 PDT by Raghu Minor Please click the below link to view image of tracing.
[2024-08-07] MEDS: VANCOMYCIN 1.25GM/250ML 250 ML IV SCH (15:53)
[2024-08-08] VITALS (7 sets, daily range): BP systolic 111–124; BP diastolic 50–65; PULSE 61–77; RESP 16–18; TEMP 97.8–98.7; O2SAT 83–94
[2024-08-08 05:18] LABS: Basophils # (auto) 0.1 10 ^3/uL (0-0.2); Basophils % (auto) 0.7 % (0.0-2.0); Eosinophils # (auto) 0.4 10 ^3/uL (0-0.8); Eosinophils % (auto) 4.3 % (0.0-7.0); Hematocrit 38.5 % (41.0-53.0); Hemoglobin 13.5 g/dL (13.5-17.5); Lymphocytes % (auto) 22.9 % (10.0-50.0); Mean Corpuscular Hemoglobin 29.5 pg (28.0-32.0); Mean Corpuscular Hgb Conc. 35.2 g/dL (32.0-36.0); Mean Corpuscular Volume 83.8 fL (80.0-100.0); Monocytes # (auto) 0.9 10 ^3/uL (0-1.3); Monocytes % (auto) 10.1 % (0.0-12.0); Neutrophils # (auto) 5.4 10 ^3/uL (1.6-8.6); Nucleated Red Blood Cells % 0.1 %; Platelet Count (auto) 216 10^3/uL (140-450); Red Cell Distribution Width 14.3 % (11.8-14.3); White Blood Cell 8.8 10^3/uL (4.4-10.8)
[2024-08-08] MEDS: HYDROcodone-ACET 5/325MG TAB PO PRN (10:04)
--- NOTE | 2024-08-08 14:58 | DVHDS2 ---
Discharge Summary Date of Admission Aug 05, 2024 at 19:30 Date of Discharge: Aug 08, 2024 Labs/Diagnostic Data: Laboratory Results Test 08/08/24 10:14 08/08/24 04:57 08/07/24 13:51 08/07/24 05:04 POC Glucose 282 mg/dl (70-106) White Blood Count 8.8 10^3/uL (4.4-10.8) Red Blood Count 4.60 10^6/uL (4.5-5.90) Hemoglobin 13.5 g/dL (13.5-17.5) Hematocrit 38.5 % (41.0-53.0) Mean Corpuscular Volume 83.8 fL (80.0-100.0) Mean Corpuscular Hemoglobin 29.5 pg (28.0-32.0) Mean Corpuscular Hemoglobin Concent 35.2 g/dL (32.0-36.0) Red Cell Distribution Width 14.3 % (11.8-14.3) Platelet Count 216 10^3/uL (140-450) Mean Platelet Volume 7.5 fL (6.9-10.8) Neutrophils (%) (Auto) 62.0 % (37.0-80.0) Lymphocytes (%) (Auto) 22.9 % (10.0-50.0) Monocytes (%) (Auto) 10.1 % (0.0-12.0) Eosinophils (%) (Auto) 4.3 % (0.0-7.0) Basophils (%) (Auto) 0.7 % (0.0-2.0) Neutrophils # (Auto) 5.4 10 ^3/uL (1.6-8.6) Lymphocytes # (Auto) 2.0 10 ^3/uL (0.4-5.4) Monocytes # (Auto) 0.9 10 ^3/uL (0-1.3) Eosinophils # (Auto) 0.4 10 ^3/uL (0-0.8) Basophils # (Auto) 0.1 10 ^3/uL (0-0.2) Nucleated Red Blood Cells 0.1 % Creatinine 1.18 mg/dL (0.700-1.30) Glomerular Filtration Rate Calc 66 mL/min (>90) Random Vancomycin Level < 3.0 ug/mL (5-10) Sodium Level 140 mmol/L (136-145) Potassium Level 4.4 mmol/L (3.5-5.1) Chloride Level 105 mmol/L (98-107) Carbon Dioxide Level 30 mmol/L (20-31) Anion Gap 5 (5-15) Blood Urea Nitrogen 22 mg/dL (9-23) BUN/Creatinine Ratio 17.9 (10.0-20.0) Serum Glucose 131 mg/dL (74-106) Hemoglobin A1c 8.4 % A1C (<5.7) Calcium Level 9.6 mg/dL (8.7-10.4) Total Bilirubin 0.5 mg/dL (0.2-1.0) Aspartate Amino Transferase (AST) 16 U/L (13-40) Alanine Aminotransferase (ALT) 20 U/L (7-40) Alkaline Phosphatase 88 U/L (46-116) Total Protein 6.8 g/dL (5.7-8.2) Albumin 4.2 g/dL (3.2-4.8) Test 08/06/24 13:19 08/05/24 17:10 Prothrombin Time 10.9 sec (9.3-11.8) Prothrombin Time INR 1.03 (0.9-1.15) Activated Partial Thromboplast Time 27.9 SEC (24.5-34.5) Urine Color Light-yellow (Yellow) Urine Clarity Clear (Clear) Urine pH 5.5 (5.0-9.0) Urine Specific [place] 1.014 (1.001-1.035) Urine Protein 1+ (Negative) Urine Ketones Negative (Negative) Urine Blood Negative /uL (Negative) Urine Nitrite Negative (Negative) Urine Bilirubin Negative (Negative) Urine Urobilinogen Normal mg/dL (Negative) Urine Leukocyte Esterase 3+ /uL (Negative) Urine RBC 1 /hpf (0 - 3) Urine Microscopic WBC 16 /HPF (0-3) Urine Squamous Epithelial Cells Few /hpf (<5) Urine Bacteria None seen /hpf (None Seen) Urine Mucus Few (None Seen) Urine Glucose 3+ mg/dL (Normal) Other Laboratory Tests 08/08/24 04:57 08/07/24 05:04 Brief Hx & Hospital Course: SEE DICTATED NOTE Condition at Discharge: Good Final Diagnosis/Problems List LEFT FOOT OSTEO Discharge Disposition: Home with Health Services Discharge Instruct/Medications Diet: Consistent carbohydrate, Cardiac 2g Na,low cholest Activity: No Restrictions, As Tolerated Follow Up/Referral: FU WITH DR HORNER IN 1 WK Medications: [facility] FOR IV ANTIBIOTICS Discharge Statement: "Patient was advised to return to the ER or call 911 if any headaches, dizziness, shortness of breath, chest pain, abdominal pain, bleeding, fevers, or worsening of medical condition. Patient was counseled about treatment plan, medications, possible side effects, patientverbalized understanding. All questions were answered to the best of my ability. This discharge took greater then 30 minutes in planning, reviewing documentation, counseling the patient, and discussing with other team members." ASSESSMENT ASSESSMENT Assessment LEFT FOOT OSTEO Date of Service: Aug 08, 2024 Billing Provider: KELSI JAIN MD Common Visit Codes: 38142-HGJ/OBS DISCH DAY >30min KELSI JAIN MD Aug 08, 2024 14:58
--- NOTE | 2024-08-08 16:38 | DVHDS ---
DATE OF DISCHARGE: 08/08/2024 HISTORY OF PRESENT ILLNESS: The patient is a 68-year-old gentleman who was admitted with history of left leg wound with osteomyelitis. He has history of hypertension and diabetes. HOSPITAL COURSE: The patient had a diagnosis of osteomyelitis as an outpatient. The patient was seen in Podiatry consult by Dr. Lynch. The patient underwent surgery of ulceration of the left fourth toe on 08/07/2024. Cultures are currently pending. He will be discharged to be on IV Invanz 1 gram daily for 3 weeks along with vancomycin 1.5 grams daily for 3 weeks with pharmacy to dose IV vancomycin. The patient will have home health for IV antibiotics. He will follow up with Dr. Lynch in the next 1 week. FINAL DIAGNOSES: Therefore: * Left foot osteomyelitis, status post surgery. * Diabetes mellitus. * Hypertension. * Urinary tract infection. * Acute renal failure, questionable vasomotor nephropathy. * Obesity. Time spent in discharge planning and review of plan with the patient and nursing was 39 minutes. MD FRANCISCO Burnett/NEW/ISELA TID: [id number] RECEIPT: [id number]
[2024-08-09 01:00] VITALS: BP 122/57; PULSE 68; RESP 18; TEMP 97.9; O2SAT 92
[2024-08-09 05:00] VITALS: BP 127/55; PULSE 64; RESP 20; TEMP 98; O2SAT 90
[2024-08-09 08:05] VITALS: RESP 16
[2024-08-09 08:34] VITALS: BP 116/54; PULSE 60; RESP 16; TEMP 98.5; O2SAT 92
[2024-08-09 12:56] VITALS: BP 121/66; PULSE 64; RESP 18; TEMP 98.4; O2SAT 94
--- NOTE | 2024-08-09 14:39 | DVHPN2 ---
Subjective Patient denies any symptoms. Reviewed: Care Plan, H&P, Labs, Medications, Previous Orders Changes from previous H/P or p: No Changes General: Per HPI Objective Vitals Vital Signs Date Time Temp Pulse Resp B/P (MAP) Pulse Ox O2 Delivery O2 Flow Rate FiO2 08/09/24 12:56 98.4 64 18 121/66 (84) 94 98.4 08/09/24 08:05 Nasal Cannula* 2 28 Intake/Output Intake and Output 08/09/24 07:00 Intake Total 600 ml Balance 600 ml Intake Oral 600 ml # Voids 6 # Bowel Movements 1 General Appearance: Alert, Oriented X3, Cooperative, No acute distress HEENT: Atraumatic, PERRLA Lungs: Clear to auscultation, Normal air movement Cardiovascular: Normal S1, Normal S2 Abdomen: Normal bowel sounds, Soft, No tenderness, No hepatospenomegaly Back: Flank Tenderness, Midline Tenderness Extremities: No clubbing, No cyanosis Neuro: Normal gait, Normal speech Psych/Mental Status: Mental status NL, Mood NL Medications Current Medications Medications Dose Ordered Sig/Debi Route Start Time Stop Time Status Last Admin Dose Admin Amlodipine Besylate 10 mg DAILY PO 08/06/24 10:00 08/09/24 10:06 10 MG Atorvastatin Calcium 40 mg HS PO 08/05/24 22:00 08/08/24 21:06 40 MG Diagnostic Test (Pha) 1 strip Q6HR 08/06/24 00:00 08/09/24 12:21 1 STRIP Insulin Human Regular Q6HR SC 08/06/24 00:00 08/09/24 12:23 4 UNITS Dextrose 50 ml UD PRN IV 08/05/24 19:30 Ondansetron HCl 4 mg Q4HP PRN IV 08/05/24 19:30 Vancomycin HCl 0 ml @ 0 mls/hr UD IV 08/06/24 11:45 Ertapenem 1 gm/ Sodium Chloride 50 ml @ 100 mls/hr DAILY IV 08/07/24 10:00 08/09/24 10:05 100 MLS/HR Morphine Sulfate 2 mg Q4HPRN PRN IV 08/06/24 11:45 Acetaminophen/ Hydrocodone Bitart 1 tab Q6HPRN PRN PO 08/06/24 11:45 08/08/24 10:04 1 TAB Acetaminophen 650 mg Q6HP PRN PO 08/06/24 11:45 Sodium Chloride 10 ml QSHIFT@10,22 IV 08/06/24 22:00 08/09/24 10:05 10 ML Vancomycin HCl 250 ml @ 200 mls/hr Q12H IV 08/07/24 16:00 08/09/24 03:51 200 MLS/HR Laboratory Results Laboratory Tests 08/07/24 05:04 08/08/24 04:57 Urinalysis Test 08/05/24 17:10 Urine Color Light-yellow (Yellow) Urine Clarity Clear (Clear) Urine pH 5.5 (5.0-9.0) Urine Specific [place] 1.014 (1.001-1.035) Urine Protein 1+ (Negative) H Urine Ketones Negative (Negative) Urine Blood Negative /uL (Negative) Urine Nitrite Negative (Negative) Urine Bilirubin Negative (Negative) Urine Urobilinogen Normal mg/dL (Negative) Urine Leukocyte Esterase 3+ /uL (Negative) Urine RBC 1 /hpf (0 - 3) Urine Microscopic WBC 16 /HPF (0-3) H Urine Squamous Epithelial Cells Few /hpf (<5) Urine Bacteria None seen /hpf (None Seen) Urine Mucus Few (None Seen) Urine Glucose 3+ mg/dL (Normal) H Microbiology Microbiology Date/Time Source Procedure Growth Status 08/07/24 07:45 Toe Left (Fourth) Gram Stain - Final Resulted 08/07/24 07:45 Toe Left (Fourth) Anaerobic Culture - Preliminary Resulted 08/07/24 07:45 Toe Left (Fourth) Aerobic Culture - Preliminary Resulted 08/05/24 17:00 Voided Urine Urine Culture - Final Complete Labs and/or images reviewed: Labs reviewed by me, Image(s) reviewed by me Assessment/Plan Assessment/Plan Impression: -left foot ostomy highlight status post I he was mellitus -complicated cystitis -acute kidney injury, probable vasomotor nephropathy -Obesity -primary hypertension Plan: -patient has home health services established for wound care and IV antibiotics. DC today. -regular insulin sliding scale -primary hypertension -continue current antibiotic therapy Total time spent with patient discussing and formulating plan of care: 35 minutes. This medical document was created using an electronic medical record system with Stevie dictation system. Although this document has been carefully reviewed, there may still be some phonetic and typographical errors. These areas are purely typographical due to imperfections of the software programs, and do not reflect any compromise in the patient's medical care. Plan discussed with: Patient, Other (RN) My Orders Orders - NIMCO VELAZQUEZ NP Procedure Category Date Status Time Communication Order ORDERS 08/09/24 Verified 14:36 Date of Service: Aug 09, 2024 Billing Provider: NIMCO VELAZQUEZ NP Common Visit Codes: [id number] INP/OBS CARE(HIGH) NIMCO VELAZQUEZ NP Aug 09, 2024 14:39
[2024-08-09 14:54] VITALS: BP 116/54; PULSE 60; RESP 16; TEMP 98.5; O2SAT 97
== END 2024-08-09 16:05 | disposition home or self-care (01) | DRG 617 ==
LOC: ER 13:59 → OVERFLOW 19:30 → EAST 08-06 04:58
PROVIDERS: ADMIT Nurse Practitioner Acute Care; ATTEND Nurse Practitioner Acute Care
PROC: 02HV33Z Insertion of Infusion Device into Superior Vena Cava, Percutaneous Approach (ICD-10-PCS; 2024-08-06)
PROC: B548ZZA Ultrasonography of Superior Vena Cava, Guidance (ICD-10-PCS; 2024-08-06)
PROC: 0Y6W0Z0 Detachment at Left 4th Toe, Complete, Open Approach (ICD-10-PCS; principal; 2024-08-07 07:17)
DX: E11.69 Type 2 diabetes mellitus with other specified complication (principal); L03.116 Cellulitis of left lower limb; M86.8X7 Other osteomyelitis, ankle and foot; N17.0 Acute kidney failure with tubular necrosis; E11.621 Type 2 diabetes mellitus with foot ulcer; E66.01 Morbid (severe) obesity due to excess calories; I10 Essential (primary) hypertension; E11.51 Type 2 diabetes mellitus with diabetic peripheral angiopathy without gangrene; L97.529 Non-pressure chronic ulcer of other part of left foot with unspecified severity; N30.90 Cystitis, unspecified without hematuria; Z68.39 Body mass index [BMI] 39.0-39.9, adult; Z83.3 Family history of diabetes mellitus
CPT/HCPCS: 36415; 36569; 71045; 73700; 80048; 80053; 80202; 81001; 82565; 82962; 83036; 85025; 85610; 85730; 86850; 86900; 86901; 87070; 87075; 87086; 87205; 93005; G0378; J0690; J1335; J1815; J2250; J2405; J2543; J3490